=== PATIENT | male | born 1965 | race Caucasian/White ===

== ENCOUNTER 2024-10-20 07:44 | Outpatient (CLI) | payer MEDICARE, SELFPAY ==
--- NOTE | ~2024-10-20 | MR_ITS ---
EXAMINATION: MR knee RT wo con DATE: 10/20/2024 08:21 INDICATION: Other tear of medial meniscus, recurrent injury. TECHNIQUE: Magnetic resonance imaging (MRI) of the right knee was performed without intravenous contr ast. COMPARISON: Right knee radiographs 09/30/2024 FINDINGS: Medial compartment: There is a complex tear involving the anterior horn, body, and posterior horn of the medial meniscus. There is shallow partial-thickness cartilage loss of tibial condyle and femoral condyle with mild cornell bchondral edema-like marrow signal intensity. Lateral compartment: The lateral meniscus is normal. There is deep cartilage fissuring of tibial condyle involving the garcia tral articular surface with subchondral cyst and subchondral edema-like marrow signal intensity. Ther e is partial-thickness cartilage loss of femoral condyle, deep at the central articular surface. Patellofemoral compartment: Patellar cartilage is normal. There is deep partial-thickness cartilage loss of the central trochlea. Ligaments and tendons: The anterior and posterior cruciate ligaments are normal. There are changes of prior sprains of media l collateral ligament and fibular collateral ligament characterized by thickening and increased signa l intensity proximally. There is mild patellar tendinopathy. Fluid: There is a small knee joint effusion. There is trace fluid in a Carpenter's cyst. There is moderate prepa tellar and superficial infrapatellar bursitis. IMPRESSION: 1. Moderate chondrosis of lateral and patellofemoral compartments and mild chondrosis of medial amaury rtment. 2. Tear of medial meniscus. 3. Small knee joint effusion. Reviewed, dictated and finalized at location A. MODYNAMICS TEACHER IMPRESSION: 1. Moderate chondrosis of lateral and patellofemoral compartments and mild iman drosis of medial compartment. 2. Tear of medial meniscus. 3. Small knee joint effusion.
== END 2024-10-20 07:45 | disposition home or self-care (01) ==
LOC: MICIMG 07:45
PROVIDERS: PCP Physician Assistant; Visit Provider Orthopaedic Surgery
DX: S83.231A Complex tear of medial meniscus, current injury, right knee, initial encounter (principal); M94.261 Chondromalacia, right knee; M25.461 Effusion, right knee; X58.XXXA Exposure to other specified factors, initial encounter
CPT/HCPCS: 73721

== ENCOUNTER 2025-01-04 10:11 | Outpatient (CLI) | payer MEDICARE, SELFPAY ==
[2025-01-04 11:08] LABS: Anion Gap 9 mmol/L (4-12); Blood Urea Nitrogen 13 mg/dL (9-20); Calcium 8.7 mg/dL (8.4-10.2); Carbon Dioxide 31 mmol/L (22-30); Chloride 95 mmol/L (98-107); Estimated Glomerular Filt Rate > 60; Glucose 109 mg/dL (65-110); Potassium 3.1 mmol/L (3.4-5.0); Sodium 135 mmol/L (137-145)
--- OUTSIDE RECORDS SUMMARY | 2025-01-04 11:28 | XMS_ITS | Referral Summary ---
Author Organization [facility] Address [address] [place] [address] Care Team Providers Care Photovoltaic Solar Cell Designer Name Role Phone Parent, Hiral Coffey GEORGE Primary Care Provider [phone] [facility],non-owned Affiliates and Associated Physician Practices is amultiple site organization consisting of ambulatory clinics and hospital sitesin [place], [place], [place] and [place]. This disclosure is being madepursuant to the Care Everywhere program and may not contain all information available regarding this patient. Last updated 18.[facility] Allergies No known active allergies Medications * Be aware that medications may not be up to date on this document. Alwaysverify current medications with the patient. Medication Sig Dispensed Refills Start Date End Date Status chlorthalidone (HYGROTON) 25 MG tablet chlorthalidone 25 mg tablet TAKE 2 TABLETS BY MOUTH EVERY DAY Active cyclobenzaprine (FLEXERIL) 10 MG tablet once daily Active metoprolol tartrate (LOPRESSOR) 25 MG tablet metoprolol tartrate 25 mg tablet TAKE 1 TABLET BY MOUTH EVERY DAY Active Sharps Container ([employer] NEEDLE COLLECTION/DISPOSAL) MISC Use 1 Each every 7 days 1 Each 06/03/2022 Active methotrexate 50 MG/2ML injectionIndications :Psoriatic arthritis (HCC),Arthralgia, unspecified joint,Therapeutic drug monitoring,Osteoarth ritis, unspecified osteoarthritis type, unspecified site,High risk medications (not anticoagulants) long-term use Inject 0.8 mL subcutaneously every 7 days 4 mL 5 06/19/2022 Active naproxen (Naprosyn) 500 MG tablet Take 1 (one) tablet by mouth 2 times daily as needed For pain. 07/02/2022 Active folic acid (Folvite) 1 MG tabletIndications:Ps oriatic arthritis (HCC),Arthralgia, unspecified joint,Therapeutic drug monitoring,Osteoarth ritis, unspecified osteoarthritis type, unspecified site,High risk medications (not anticoagulants) long-term use Take 1 (one) tablet by mouth once daily 90 tablet 4 03/20/2023 Active insulin syringe-needle (Bd Ultrafine) 29G X 1/2 1 ML syringeIndications:P soriatic arthritis (HCC),Arthralgia, unspecified joint,Therapeutic drug monitoring,Osteoarth ritis, unspecified osteoarthritis type, unspecified site,High risk medications (not anticoagulants) long-term use use as directed to dispense methotrexate weekly 24 Each 1 06/25/2023 Active Active Problems No known active problems Social History Tobacco Use Types Packs/Day Years Used Date Smoking Tobacco: Never Smokeless Tobacco: Never Alcohol Use Standard Drinks/Week Comments Never 0 (1 standard drink = 0.6 oz pur e alcohol) PHQ-2 Answer Date Recorded PHQ2 TOTAL SCORE 2 02/26/2022 Sex and Gender Information Value Date Recorded Sex Assigned at Not on file Gender Identity Not on file Sexual Orientation Not on file Last Filed Vital Signs Vital Sign Reading Time Taken Comments Blood Pressure 128/80 01/14/2023 9:09 AM SENIOR MARKETING MANAGER Pulse 85 01/14/2023 9:09 AM SENIOR MARKETING MANAGER Temperature 36.3 C (97.3 F) 01/14/2023 9:09 AM SENIOR MARKETING MANAGER Respiratory Rate - - Oxygen Saturation 99% 01/14/2023 9:09 AM SENIOR MARKETING MANAGER Inhaled Oxygen Concentration - - Weight 109 kg (240 lb 6.4 oz) 01/14/2023 9:09 AM SENIOR MARKETING MANAGER Height 172.7 cm (5' 8 ) 06/03/2022 11:43 AM CDT Body Mass Index 36.55 06/03/2022 11:43 AM CDT Plan of Treatment Not on file Procedures Procedure Name Priority Date/Time Associated Diagnosis Comments COMPREHENSIVE METABOLIC PANEL Routine 02/27/2022 8:35 AM CDT Psoriatic arthritis (HCC) Arthralgia, unspecified joint Therapeutic drug monitoring Osteoarthritis, unspecified osteoarthritis type, unspecified site High risk medications (not anticoagulants) long-term use from Last 3 Months or Most Recently Relevant to Health Maintenance Results * (ABNORMAL) COMPREHENSIVE METABOLIC PANEL (02/27/2022 8:35 AM CDT) [facility] Glucose 92 65 - 99 mg/dL [facility] Comment: Fasting reference interval BUN 10 7 - 25 mg/dL [facility] Creatinine 1.21 0.70 - 1.33 mg/dL [facility] Comment: For patients >49 years of age, the reference limit for Creatinine is approximately 13% higher for people identified as -Russian. eGFR by MDRD 66 > OR = 60 mL/min/1 .73m2 [facility] eGFR by MDRD 76 > OR = 60 mL/min/1 .73m2 [facility] BUN/Creatinine Ratio NOT APPLICABLE 6 - 22 (calc) [facility] Sodium 137 135 - 146 mmol/L [facility] Potassium 4.3 3.5 - 5.3 mmol/L [facility] Chloride 104 98 - 110 mmol/L [facility] CO2 25 20 - 32 mmol/L [facility] Calcium 8.9 8.6 - 10.3 mg/dL [facility] Protein Total 7.8 6.1 - 8.1 g/dL [facility] Albumin 4.0 3.6 - 5.1 g/dL [facility] Globulin Total 3.8(H) 1.9 - 3.7 g/dL (calc) [facility] Albumin/Globulin Ratio 1.1 1.0 - 2.5 (calc) [facility] Bilirubin Total 0.5 0.2 - 1.2 mg/dL [facility] Alkaline Phosphatase 57 35 - 144 U/L [facility] AST 17 10 - 35 U/L [facility] ALT 14 9 - 46 U/L [facility] Comment: Test Performed at: [facility] [id number] [place] [address] MILLIE WOODY DO,MPH Blood BLOOD SPECIMEN / Unknown 02/27/2022 8:35 AM CDT 02/27/2022 8:36 AM CDT Kenyetta Reaves MD LAB - CHEMISTRY ORDERABLES [facility] [address] [place] [address] from Last 3 Months or Most Recently Relevant to Health Maintenance Care Teams Photovoltaic Solar Cell Designer Relationship Specialty Start Date End Date Parent, GEORGE Alcaraz [address] [place] [address] PCP - General 08/06/21
--- OUTSIDE RECORDS SUMMARY | 2025-01-04 11:28 | XMS_ITS | Referral Summary ---
Author Organization [facility] Address [address] [place] [address] Care Team Providers Care Paver Installer Name Role Phone Parent, Hiral Solares GEORGE Primary Care Provider [phone] Allergies No known active allergies Medications aspirin 81 mg chewable tablet Take 1 tablet (81 mg total) by mouth daily 05/05/2017 Active chlorthalidone 25 mg tablet daily Active hydrOXYzine (ATARAX) 25 mg tablet Take 1 tablet (25 mg total) by mouth nightly 2 01/16/2019 Active metoprolol (LOPRESSOR) 25 mg tablet Take 1 tablet (25 mg total) by mouth daily 2 02/17/2019 Active Active Problems Problem Noted Date Diagnosed Date Hyperlipidemia 01/08/2023 Psoriasis with arthropathy 09/30/2022 Essential hypertension 07/12/2013 Resolved Problems Problem Noted Date Diagnosed Date Resolved Date Left hand pain 04/28/2019 06/17/2024 Ganglion cyst 04/14/2019 06/17/2024 Right hand pain 04/14/2019 06/17/2024 Social History Tobacco Use Types Packs/Day Years Used Date Smoking Tobacco: Never Personal Safety Answer Date Recorded Getting School Help Needed Not on file 02/06 Sex and Gender Information Value Date Recorded Sex Assigned at Not on file Legal Sex 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 Gender Identity Not on file Sexual Orientation Not on file Last Filed Vital Signs Vital Sign Reading Time Taken Comments Blood Pressure 128/93 06/17/2024 10:00 AM CDT Pulse 99 06/17/2024 10:00 AM CDT Temperature 36.9 C (98.5 F) 06/17/2024 10:00 AM CDT Respiratory Rate - - Oxygen Saturation 97% 06/17/2024 10:00 AM CDT Inhaled Oxygen Concentration - - Weight 108.9 kg (240 lb) 06/17/2024 10:00 AM CDT Height 177.8 cm (5' 10 ) 06/17/2024 10:00 AM CDT Body Mass Index 34.44 06/17/2024 10:00 AM CDT Plan of Treatment Not on file Insurance [employer] MEDICARE SOLUTIONS MEDICARE SOLUTIONS Care Teams Paver Installer Relationship Specialty Start Date End Date ParentHiral PA PCP - General Family Practice 03/30/19
--- OUTSIDE RECORDS SUMMARY | 2025-01-04 11:28 | XMS_ITS | Clinical Summary ---
Author Organization [facility] Address [facility] [place] [address] Care Team Providers Care Construction Project Mgr Name Role Phone Parent, Hiral Solares GEORGE Primary Care Provider [phone] Allergies No known active allergies Medications aspirin [...] 04/14/2019 06/17/2024 Right hand pain 04/14/2019 06/17/2024 Surgical History Surgery Date Site/Laterality Comments HIP SURGERY SHOULDER ARTHROSCOPY KNEE ARTHROSCOPY Medical History Medical History Date Comments Hypertension Family History Medical History Relation Name Comments Cancer Other Heart disease Other Stroke Other Relation Name Status Comments Other Social History Tobacco Use Types Packs/Day Years Used Date Smoking Tobacco: Never Personal Safety Answer Date Recorded Getting School Help Needed Not on file 02/06 Sex and Gender Information Value Date Recorded Sex Assigned at Not on file Legal Sex Male 8:52 AM [employer]IV[employer]ITY [employer]NER[employer] REP Gender Identity Not on file Sexual Orientation Not on file Obstetrics History Last Filed Vital Signs Vital Sign Reading [...] 06/17/2024 10:00 AM CDT Plan of Treatment Health Maintenance Due Date Last Done Comments Colon Cancer Screening-Colonoscopy 1963 Depression Screening 1963 Hepatitis C Screening 1963 Prostate Cancer Screening-PSA 1963 Regular Well Visit/Exam 18-64 1981 Zoster Vaccine (1 of 2) 2013 Influenza Vaccine (#1) 2024 DTaP/Tdap/Td Vaccine (3 - Td or Tdap) 10/01/2032 10/01/2022, 03/18/2011 Pneumococcal vaccine <65 Aged Out No longer eligible based on patient's age to complete this topic Insurance [employer] MEDICARE SOLUTIONS MEDICARE SOLUTIONS [facility] MEDIC[facility] Address: [address] [address] [place] [address] Care Teams Construction Project Mgr Relationship Specialty Start Date End Date Hiral Rivas PA PCP - General Family Practice 03/30/19
--- OUTSIDE RECORDS SUMMARY | 2025-01-04 11:28 | XMS_ITS | CONTINUITY OF CARE DOCUMENT ---
Author Name jannette bhatia Address Unknown Organization [facility] Address [address] [address] [place] [address] Phone [phone] Care Team Providers Care Cardiac Care Unit Nurse Name Role Phone jannette bhatia Unavailable Unavailable INSURANCE PROVIDERS Payer name Policy type / Coverage type Addison red libertarian ID [facility] [id number]
--- OUTSIDE RECORDS SUMMARY | 2025-01-04 11:28 | XMS_ITS | Clinical Summary ---
Author Organization [facility] [address] Address [address] [place] [address] Care Team Providers Care Self Propelled Dredge Operator Name Role Phone Parent, Hiral Coffey GEORGE Primary Care Provider [phone] Source Comments [facility] [address],non-owned Affiliates and Associated Physician Practices is amultiple site organization consisting of ambulatory clinics and hospital sitesin [place], [place] and [place]. This disclosure is being madepursuant to the Care Everywhere program and may not contain all information available regarding this patient. Last updated 18.[facility] [address] Allergies No known active allergies Medications * [...] Active Active Problems No known active problems Family History Medical History Relation Name Comments Cancer Brother Heart Failure Father Cancer Mother Relation Name Status Comments Brother Father Mother Social History Tobacco Use Types Packs/Day Years [...] Comments Blood Pressure 128/80 01/14/2023 9:09 AM BUSINESS INTELLIGENCE DIRECTOR Pulse 85 01/14/2023 9:09 AM BUSINESS INTELLIGENCE DIRECTOR Temperature 36.3 C (97.3 F) 01/14/2023 9:09 AM BUSINESS INTELLIGENCE DIRECTOR Respiratory Rate - - Oxygen Saturation 99% 01/14/2023 9:09 AM BUSINESS INTELLIGENCE DIRECTOR Inhaled Oxygen Concentration - - Weight 109 kg (240 lb 6.4 oz) 01/14/2023 9:09 AM BUSINESS INTELLIGENCE DIRECTOR Height 172.7 cm (5' 8 ) 06/03/2022 11:43 AM CDT Body Mass Index 36.55 06/03/2022 11:43 AM CDT Plan of Treatment Health Maintenance Due Date Last Done Comments COLOGUARD (AGES 45-75) - COL ON CA SCREENING 1963 COLON MONITORING 1963 COLONOSCOPY - COLON CA SCREENING 1963 CT COLONOGRAPHY - COLON CA SCREENING 1963 Colorectal Cancer Screening 1963 FIT - COLON CA SCREENING 1963 FLEX SIG - COLON CA SCREENING 1963 LIPID TESTING 1963 HIV SCREENING 1978 HEPATITIS C SCREENING 11/08/1981 DTAP/TDAP/TD VACCINES (1 - Tdap) 1982 PNEUMOCOCCAL VACCINE 50+ (1 of 1 - PCV) 2013 ZOSTER VACCINE (1 of 2) 2013 COVID-19 VACCINE (4 - 2023-2 5 season) 2024 11/15/2021, 03/15/2021, 02/22/2021 INFLUENZA VACCINE (#1) 2024 DEPRESSION SCREENING 11/24/2024 06/03/2022 SCREENING FOR DIABETES 02/27/2025 2, 11/26/2021 Respiratory Syncytial Virus (RSV) Vaccine Pt: or over 60 yrs (1 - 1-dose 75+ series) 2038 HEPATITIS B VACCINE Aged Out No longe r eligible based on patient's age to complete this topic HIB VACCINE Aged Out No longer eligi ble based on patient's age to complete this topic HPV VACCINE Aged Out No longer eligi ble based on patient's age to complete this topic MENINGOCOCCAL (Group B) VACCINE Aged Out No longer eligible b ased on patient's age to complete this topic MENINGOCOCCAL VACCINE Aged Out No ventura noelle eligible based on patient's age to complete this topic PNEUMOCOCCAL VACCINE Aged Out No long er eligible based on patient's age to complete this topic Procedures Procedure Name Priority Date/Time Associated Diagnosis Comments COMPREHENSIVE METABOLIC PANEL Routine 02/27/2022 8:35 AM CDT Psoriatic arthritis (HCC) Arthralgia, unspecified joint Therapeutic drug monitoring Osteoarthritis, unspecified osteoarthritis type, unspecified site High risk medications (not anticoagulants) long-term use from Last 3 Months or Most Recently Relevant to Health Maintenance Results * (ABNORMAL) COMPREHENSIVE METABOLIC PANEL (02/27/2022 8:35 AM CDT) Glucose 92 65 - 99 mg/dL [facility] Comment: Fasting reference interval BUN 10 7 - 25 mg/dL [facility] Creatinine 1.21 0.70 - 1.33 mg/dL [facility] Comment: For patients >49 years of age, the reference limit for Creatinine is approximately 13% higher for people identified as -Sao Tomean. eGFR by MDRD 66 > OR = [...] 46 U/L [facility] Comment: Test Performed at: [facility] [address] [address] MILLIE WOODY DO,MPH Blood BLOOD SPECIMEN / Unknown 02/27/2022 8:35 AM CDT 02/27/2022 8:36 AM CDT Kenyetta Reaves MD LAB - CHEMISTRY ORDERABLES [facility] [address] [place] [address] from Last 3 Months or Most Recently Relevant to Health Maintenance Care Teams Self Propelled Dredge Operator Relationship Specialty Start Date End Date Parent, GEORGE Alcaraz [address] [place] [address] PCP - General 08/06/21
--- OUTSIDE RECORDS SUMMARY | 2025-01-04 11:28 | XMS_ITS | Patient Health Summary ---
Author Organization [facility] Address [address] [place] [address] Care Team Providers Care Building Custodial Supervisor Name Role Phone Parent, Hiral Coffey GEORGE Primary Care Provider [phone] Note from [facility],non-owned Affiliates and Associated Physician Practices is amultiple site organization consisting of ambulatory clinics and hospital sitesin [place], [place], [place] and [place]. This disclosure is being madepursuant to the Care Everywhere program and may not contain all information available regarding this patient. Last updated 18.[facility] Allergies No known active allergies Medications * Be aware that medications may not be up to date on this document. Alwaysverify current medications with the patient. * chlorthalidone (HYGROTON) 25 MG tablet chlorthalidone 25 mg tablet TAKE 2 TABLETS BY MOUTH EVERY DAY * cyclobenzaprine (FLEXERIL) 10 MG tablet once daily * metoprolol tartrate (LOPRESSOR) 25 MG tablet metoprolol tartrate 25 mg tablet TAKE 1 TABLET BY MOUTH EVERY DAY * [employer] ([facility] NEEDLE COLLECTION/DISPOSAL) [facility](Started 06/03/2022) Use 1 Each every 7 days * methotrexate 50 MG/2ML injection(Started 06/19/2022) Inject 0.8 mL subcutaneously every 7 days 5 refills by 06/19/2023 * naproxen (Naprosyn) 500 MG tablet(Started 07/02/2022) Take 1 (one) tablet by mouth 2 times daily as needed For pain. * folic acid (Folvite) 1 MG tablet(Started 03/20/2023) Take 1 (one) tablet by mouth once daily 4 refills by 03/19/2024 * insulin syringe-needle (Bd Ultrafine) 29G X 1/2 1 ML syringe(Started 06/25/2023) use as directed to dispense methotrexate weekly 1 refill by 06/24/2024 Active Problems No known active problems Social [...] Comments Blood Pressure 128/80 01/14/2023 9:09 AM SURGERY SPECIALIST Pulse 85 01/14/2023 9:09 AM SURGERY SPECIALIST Temperature 36.3 C (97.3 F) 01/14/2023 9:09 AM SURGERY SPECIALIST Respiratory Rate - - Oxygen Saturation 99% 01/14/2023 9:09 AM SURGERY SPECIALIST Inhaled Oxygen Concentration - - Weight 109 kg (240 lb 6.4 oz) 01/14/2023 9:09 AM SURGERY SPECIALIST Height 172.7 cm (5' 8 ) 06/03/2022 11:43 AM CDT Body Mass Index 36.55 06/03/2022 11:43 AM CDT Procedures * HLA TYPING B27(Performed 02/27/2022) Performed for Psoriatic arthritis (HCC), Arthralgia, unspecified joint, Therapeutic drug monitoring, Osteoarthritis, unspecified osteoarthritis type, unspecified site, High risk medications (not anticoagulants) long-term use * URINALYSIS W/MICROSCOPIC NO CULTURE(Performed 02/27/2022) Performed for Psoriatic arthritis (HCC), Arthralgia, unspecified joint, Therapeutic drug monitoring, Osteoarthritis, unspecified osteoarthritis type, unspecified site, High risk medications (not anticoagulants) long-term use * ERYTHROCYTE SEDIMENTATION RATE(Performed 02/27/2022) Performed for Psoriatic arthritis (HCC), Arthralgia, unspecified joint, Therapeutic drug monitoring, Osteoarthritis, unspecified osteoarthritis type, unspecified site, High risk medications (not anticoagulants) long-term use * C-REACTIVE PROTEIN(Performed 02/27/2022) Performed for Psoriatic arthritis (HCC), Arthralgia, unspecified joint, Therapeutic drug monitoring, Osteoarthritis, unspecified osteoarthritis type, unspecified site, High risk medications (not anticoagulants) long-term use * COMPREHENSIVE METABOLIC PANEL(Performed 02/27/2022) Performed for Psoriatic arthritis (HCC), Arthralgia, unspecified joint, Therapeutic drug monitoring, Osteoarthritis, unspecified osteoarthritis type, unspecified site, High risk medications (not anticoagulants) long-term use * CBC W AUTO DIFFERENTIAL(Performed 02/27/2022) Performed for Psoriatic arthritis (HCC), Arthralgia, unspecified joint, Therapeutic drug monitoring, Osteoarthritis, unspecified osteoarthritis type, unspecified site, High risk medications (not anticoagulants) long-term use * IMAGING/RADIOLOGY/XRAY RESULTS ORDER(Performed 12/06/2021) * IMAGING/RADIOLOGY/XRAY RESULTS ORDER(Performed 12/06/2021) * IMAGING/RADIOLOGY/XRAY RESULTS ORDER(Performed 12/06/2021) * IMAGING/RADIOLOGY/XRAY RESULTS ORDER(Performed 12/06/2021) * IMAGING/RADIOLOGY/XRAY RESULTS ORDER(Performed 12/06/2021) * IMAGING/RADIOLOGY/XRAY RESULTS ORDER(Performed 12/06/2021) * IMAGING/RADIOLOGY/XRAY RESULTS ORDER(Performed 12/06/2021) * CYCLIC CITRULLINATED PEPTIDE(CCP) AB IGG(Performed 11/26/2021) * PROTEIN ELECTROPHORESIS URINE RANDOM PANEL(Performed 11/26/2021) * ALDOLASE(Performed 11/26/2021) Performed for Arthralgia, unspecified joint, Therapeutic drug monitoring, Osteoarthritis, unspecified osteoarthritis type, unspecified site * LDH BLOOD(Performed 11/26/2021) Performed for Arthralgia, unspecified joint, Therapeutic drug monitoring, Osteoarthritis, unspecified osteoarthritis type, unspecified site * CK BLOOD(Performed 11/26/2021) Performed for Arthralgia, unspecified joint, Therapeutic drug monitoring, Osteoarthritis, unspecified osteoarthritis type, unspecified site * IGA BLOOD(Performed 11/26/2021) Performed for Arthralgia, unspecified joint, Therapeutic drug monitoring, Osteoarthritis, unspecified osteoarthritis type, unspecified site * IGG BLOOD(Performed 11/26/2021) Performed for Arthralgia, unspecified joint, Therapeutic drug monitoring, Osteoarthritis, unspecified osteoarthritis type, unspecified site * IGM BLOOD(Performed 11/26/2021) Performed for Arthralgia, unspecified joint, Therapeutic drug monitoring, Osteoarthritis, unspecified osteoarthritis type, unspecified site * PROTEIN ELECTROPHORESIS BLOOD(Performed 11/26/2021) Performed for Arthralgia, unspecified joint, Therapeutic drug monitoring, Osteoarthritis, unspecified osteoarthritis type, unspecified site * URINALYSIS REFLEX TO MICROSCOPIC NO CULTURE(Performed 11/26/2021) Performed for Arthralgia, unspecified joint, Therapeutic drug monitoring, Osteoarthritis, unspecified osteoarthritis type, unspecified site * C-REACTIVE PROTEIN(Performed 11/26/2021) Performed for Arthralgia, unspecified joint, Therapeutic drug monitoring, Osteoarthritis, unspecified osteoarthritis type, unspecified site * COMPREHENSIVE METABOLIC PANEL(Performed 11/26/2021) Performed for Arthralgia, unspecified joint, Therapeutic drug monitoring, Osteoarthritis, unspecified osteoarthritis type, unspecified site * CBC W AUTO DIFFERENTIAL(Performed 11/26/2021) Performed for Arthralgia, unspecified joint, Therapeutic drug monitoring, Osteoarthritis, unspecified osteoarthritis type, unspecified site Results * URINALYSIS W/MICROSCOPIC NO CULTURE (02/27/2022 8:35 AM CDT) Color UA YELLOW YELLOW [facility] Appearance CLEAR CLEAR [facility] Specific Sabin UA 1.016 1.001 - 1.035 [facility] pH UA < OR = 5.0 5.0 - 8.0 [facility] Glucose UA NEGATIVE NEGATIVE [facility] Bilirubin UA NEGATIVE NEGATIVE [facility] Ketone UA NEGATIVE NEGATIVE [facility] Blood UA NEGATIVE NEGATIVE [facility] Protein UA NEGATIVE NEGATIVE [facility] Nitrite UA NEGATIVE NEGATIVE [facility] Leukocyte UA NEGATIVE NEGATIVE [facility] WBC UA NONE SEEN < OR = 5 /HPF [facility] RBC UA NONE SEEN < OR = 2 /HPF [facility] Epithelial Cell UA NONE SEEN < OR = 5 /HPF [facility] Bacteria UA NONE SEEN NONE SEEN /HPF [facility] Hyaline Casts NONE SEEN NONE SEEN /LPF [facility] Comment: Test Performed at: [facility] [address] [place] [address] MILLIE WOODY DO,MPH Urine URINE SPECIMEN OBTAINED BY CLEAN CATCH PROCEDURE / Unknown 02/27/2022 8:35 AM CDT 02/27/2022 8:36 AM CDT Kenyetta Reaves MD LAB - URINALYSI S ORDERABLES [facility] [address] [place] [address] * (ABNORMAL) C-REACTIVE PROTEIN (02/27/2022 8:35 AM CDT) Only the most recent of2 resultswithin the time period is included. Pathologist [facility] C-Reactive Protein 8.2(H) <8.0 mg/L [facility] Comment: Test Performed at: [facility] [address] [address] [facility] [place] [address] MILLIE WOODY DO,MPH Blood BLOOD SPECIMEN / Unknown 02/27/2022 8:35 AM CDT 02/27/2022 8:36 AM CDT Kenyetta Reaves MD LAB - CHEMISTRY ORDERABLES Performing Organization Address [facility] de Phone Number [facility] [address] [place] [address] * HLA TYPING B27 (02/27/2022 8:35 AM CDT) Pathologist [facility] HLA-B27 Antigen NEGATIVE NEGATIVE [facility] Comment: Test Performed at: [facility] [address] [address] PEDRO BROWN MD Blood BLOOD SPECIMEN / Unknown 02/27/2022 8:35 AM CDT 02/27/2022 8:36 AM CDT Kenyetta Reaves MD LAB - CHEMISTRY ORDERABLES Performing Organization Address [facility] de Phone Number [facility] [address] [place] [address] * (ABNORMAL) ERYTHROCYTE SEDIMENTATION RATE (02/27/2022 8:35 AM CDT) Pathologist [facility] Erythrocyte Sedimentation Rate Westergren 29(H) < OR = 20 mm/h [facility] Comment: Test Performed at: [facility] [address] [facility] [place] [address] MILLIE WOODY DO,MPH Blood BLOOD SPECIMEN / Unknown 02/27/2022 8:35 AM CDT 02/27/2022 8:36 AM CDT Kenyetta Reaves MD LAB - HEMATOLOG Y ORDERABLES Performing Organization Address [facility] Co de Phone Number [facility] [address] [place] [address] * (ABNORMAL) CBC WITH DIFFERENTIAL (02/27/2022 8:35 AM CDT) Only the most recent of2 resultswithin the time period is included. White Blood Cell Count 9.1 3.8 - 10.8 Thousand/ uL [facility] RBC 5.46 4.20 - 5.80 Million/u L [facility] Hemoglobin 15.2 13.2 - 17.1 g/dL [facility] Hematocrit 46.0 38.5 - 50.0 % [facility] MCV 84.2 80.0 - 100.0 fL [facility] MCH 27.8 27.0 - 33.0 pg [facility] MCHC 33.0 32.0 - 36.0 g/dL [facility] RDW 13.8 11.0 - 15.0 % [facility] Platelet Count 256 140 - 400 Thousand/ uL [facility] MPV 10.3 7.5 - 12.5 fL [facility] Neutrophil Absolute 5314 1500 - 7800 cells/uL [facility] Absolute Bands [facility] Metamyelocytes Absolute [facility] Myelocytes Absolute [facility] Absolute Prolymphocytes [facility] Lymphocytes Absolute 2339 850 - 3900 cells/uL [facility] Absolute Monocytes 619 200 - 950 cells/uL [facility] Eosinophils Absolute 728(H) 15 - 500 cells/uL [facility] Basophils Absolute 100 0 - 200 cells/uL [facility] Absolute Blasts [facility] nRBC Absolute [facility] Granulocytes % 58.4 % [facility] Band Neutrophil [facility] Metamyelocytes [facility] Myelocytes [facility] Promyelocytes [facility] Lymphocytes % 25.7 % [facility] Lymphocyte Reactive [facility] Monocytes % 6.8 % [facility] Eosinophils % 8.0 % [facility] Basophils % 1.1 % [facility] Comment: Test Performed at: [employer] [place] [address] MILLIE WOODY DO,MPH Blasts [facility] nRBC [facility] Comments [facility] Comment: Test Performed at: [facility] [address] [place] [address] MILLIE WOODY DO,MPH Blood BLOOD SPECIMEN / Unknown 02/27/2022 8:35 AM CDT 02/27/2022 8:36 AM CDT Kenyetta Reaves MD LAB - HEMATOLOG Y ORDERABLES Performing Organization Address [facility] Co de Phone Number [facility] [address] [place] [address] * (ABNORMAL) COMPREHENSIVE METABOLIC PANEL (02/27/2022 8:35 AM CDT) Only the most recent of2 resultswithin the time period is included. Glucose 92 65 - 99 mg/dL [facility] Comment: Fasting reference interval BUN 10 7 - 25 mg/dL [facility] Creatinine 1.21 0.70 - 1.33 mg/dL [facility] Comment: For patients >49 years of age, the reference limit for Creatinine is approximately 13% higher for people identified as -Stateless. eGFR by MDRD 66 > OR = [...] 46 U/L [facility] Comment: Test Performed at: [employer] [address] [place] [address] MILLIE WOODY DO,MPH Blood BLOOD SPECIMEN / Unknown 02/27/2022 8:35 AM CDT 02/27/2022 8:36 AM CDT Kenyetta Reaves MD LAB - CHEMISTRY ORDERABLES [facility] [address] [place] [address] * IMAGING RADIOLOGY XRAY RESULTS ORDER (12/06/2021) Only the most recent of7 resultswithin the time period is included. Anatomical Region Laterality Modality Other 12/06/2021 Narrative 12/06/2021 Ordered by an unspecified provider. Scanned Document IMAGING * URINALYSIS REFLEX TO MICROSCOPIC NO CULTURE (11/26/2021 8:23 AM SURGERY SPECIALIST) Color UA DARK YELLOW YELLOW [facility] Appearance CLEAR CLEAR [facility] Specific Sabin UA 1.023 1.001 - 1.035 [facility] pH UA 5.5 5.0 - 8.0 [facility] Glucose UA NEGATIVE NEGATIVE [facility] Bilirubin UA NEGATIVE NEGATIVE [facility] Ketone UA NEGATIVE NEGATIVE [facility] Blood UA NEGATIVE NEGATIVE [facility] Protein UA NEGATIVE NEGATIVE [facility] Nitrite UA NEGATIVE NEGATIVE [facility] Leukocyte UA NEGATIVE NEGATIVE [facility] Comment: REPORT COMMENT: FASTING:NO Test Performed at: [place] [address] MILLIE WOODY DO,MPH WBC UA [facility] RBC UA [facility] Epithelial Cell UA [facility] Transitional Epithelial Cells [facility] Renal Epithelial Cells [facility] Bacteria UA [facility] Calcium Oxalate Crystals [facility] Triple Phosphate Crystals [facility] Uric Acid Crystals [facility] Amorphous UA [facility] Crystals UA [facility] Hyaline Casts [facility] Granular Casts [facility] Casts UA [facility] Yeast [facility] Comments [facility] Comment: REPORT COMMENT: FASTING:NO Test Performed at: [place] [address] MILLIE WOODY DO,MPH Urine URINE SPECIMEN OBTAINED BY CLEAN CATCH PROCEDURE / Unknown 11/26/2021 8:23 AM SURGERY SPECIALIST 11/26/2021 8:24 AM SURGERY SPECIALIST Kenyetta Reaves MD LAB - URINALYSI S ORDERABLES [facility] [address] [place] [address] * ALDOLASE (11/26/2021 8:23 AM SURGERY SPECIALIST) Aldolase 4.5 < OR = 8.1 U/L [facility] Comment: REPORT COMMENT: FASTING:NO Test Performed at: [facility] [address] [place] [address] MILLIE WOODY DO,MPH Blood BLOOD SPECIMEN / Unknown 11/26/2021 8:23 AM SURGERY SPECIALIST 11/26/2021 8:24 AM SURGERY SPECIALIST Kenyetta Reaves MD LAB - CHEMISTRY ORDERABLES Performing Organization Address [facility] de Phone Number [address] [address] * CYCLIC CITRULLINATED PEPTIDE(CCP) AB IGG (11/26/2021 8:23 AM SURGERY SPECIALIST) [facility] Cyclic Citrullinated Peptide Antibody IgG <16 UNITS [facility] Comment: Reference Range Negative: <20 Weak Positive: 20-39 Moderate Positive: 40-59 Strong Positive: >59 REPORT COMMENT: FASTING:NO Test Performed at: [employer] [facility] [address] MILLIE WOODY DO,MPH 11/26/2021 8:23 AM SURGERY SPECIALIST 11/26/2021 8:24 AM SURGERY SPECIALIST Kenyetta Reaves MD LAB - CHEMISTRY ORDERABLES Performing Organization Address [facility] de Phone Number [facility] [address] [place], [place] [id number] * (ABNORMAL) LDH BLOOD (11/26/2021 8:23 AM SURGERY SPECIALIST) [facility] LD-Total 86(L) 120 - 250 U/L [facility] Comment: Test Performed at: [facility] [address] MILLIE WOODY DO,MPH Blood BLOOD SPECIMEN / Unknown 11/26/2021 8:23 AM SURGERY SPECIALIST 11/26/2021 8:24 AM SURGERY SPECIALIST Kenyetta Reaves MD LAB - CHEMISTRY ORDERABLES Performing Organization Address [facility] de Phone Number [facility] [address] [place] [phone] * (ABNORMAL) PROTEIN ELECTROPHORESIS URINE RANDOM PANEL (11/26/2021 8:23 AM SURGERY SPECIALIST) [facility] Creatinine Urine 352(H) 20 - 320 mg/dL [facility] Comment: Verified by repeat analysis. Protein/Creatinine Ratio 43 22 - 128 mg/g creat [facility] Protein/Creatinine Ratio 0.043 0.022 - 0.128 mg/mg creat [facility] Protein Random Urine 15 5 - 25 mg/dL [facility] Albumin 100 % [facility] Alpha-1 Globulin 0 % [facility] Ifmdr-3-Tspnakfy 0 % [facility] Beta-Globulin 0 % [facility] Gamma Globulin 0 % [facility] Abnormal Protein Band [facility] Abnormal Protein Band 2 [facility] Abnormal Protein Band 3 [facility] Interpretation [facility] Comment: Agarose electrophoresis of urine reveals albumin. No abnormal protein is observed. REPORT COMMENT: FASTING:NO Test Performed at: [facility] [address] [place] [address] MILLIE WOODY DO,MPH 11/26/2021 8:23 AM SURGERY SPECIALIST 11/26/2021 8:24 AM SURGERY SPECIALIST Kenyetta Reaves MD LAB - URINE BRYAN DAVIS ORDERABLES Performing Organization Address [facility] Co de Phone Number [facility] [address] [place] [address] * CK BLOOD (11/26/2021 8:23 AM SURGERY SPECIALIST) Pathologist [facility] CK 44 44 - 196 U/L [facility] Comment: Test Performed at: [facility] [address] [place] [address] MILLIE WOODY DO,MPH Blood BLOOD SPECIMEN / Unknown 11/26/2021 8:23 AM SURGERY SPECIALIST 11/26/2021 8:24 AM SURGERY SPECIALIST Kenyetta Reaves MD LAB - CHEMISTRY ORDERABLES Performing Organization Address [facility] Co de Phone Number [facility] [address] [place] [address] * (ABNORMAL) PROTEIN ELECTROPHORESIS BLOOD (11/26/2021 8:23 AM SURGERY SPECIALIST) Protein Total 8.1 6.1 - 8.1 g/dL [facility] Albumin 3.8 3.8 - 4.8 g/dL [facility] Alpha-1 Globulin 0.3 0.2 - 0.3 g/dL [facility] Bywvs-8-Indizfsw 1.0(H) 0.5 - 0.9 g/dL [facility] Beta-1 Globulin g/dL 0.5 0.4 - 0.6 g/dL [facility] Beta-2 Globulin 0.7(H) 0.2 - 0.5 g/dL [facility] Gamma Globulin 1.8(H) 0.8 - 1.7 g/dL [facility] Abnormal Protein Band [facility] Abnormal Protein Band 2 [facility] Abnormal Protein Band 3 [facility] Interpretation [facility] Comment: Polyclonal hypergammaglobulinemia is suggestive of a chronic inflammatory response. Test Performed at: [facility] [address] [address] MILLIE WOODY DO,MPH Blood BLOOD SPECIMEN / Unknown 11/26/2021 8:23 AM SURGERY SPECIALIST 11/26/2021 8:24 AM SURGERY SPECIALIST Kenyetta Reaves MD LAB - CHEMISTRY ORDERABLES Performing Organization Address [facility] [place] [address] * IGM BLOOD (11/26/2021 8:23 AM SURGERY SPECIALIST) IgM 221 50 - 300 mg/dL [facility] Comment: Test Performed at: [facility] [address] MILLIE WOODY DO,MPH Blood BLOOD SPECIMEN / Unknown 11/26/2021 8:23 AM SURGERY SPECIALIST 11/26/2021 8:24 AM SURGERY SPECIALIST Kenyetta Reaves MD LAB - CHEMISTRY ORDERABLES Performing Organization Address [facility] Co de Phone Number [facility] [phone] [place] [phone] * (ABNORMAL) IGG BLOOD (11/26/2021 8:23 AM SURGERY SPECIALIST) IgG 1672(H) 600 - 1640 mg/dL [facility] Comment: Test Performed at: [employer] [address] MILLIE WOODY DO,MPH Blood BLOOD SPECIMEN / Unknown 11/26/2021 8:23 AM SURGERY SPECIALIST 11/26/2021 8:24 AM SURGERY SPECIALIST Kenyetta Reaves MD LAB - CHEMISTRY ORDERABLES Performing Organization Address [facility] Co de Phone Number [facility] [phone] [place] [phone] * (ABNORMAL) IGA BLOOD (11/26/2021 8:23 AM SURGERY SPECIALIST) IgA 659(H) 47 - 310 mg/dL [facility] Comment: Test Performed at: [facility] [address] [place] [address] MILLIE WOODY DO,MPH Blood BLOOD SPECIMEN / Unknown 11/26/2021 8:23 AM SURGERY SPECIALIST 11/26/2021 8:24 AM SURGERY SPECIALIST Kenyetta Reaves MD LAB - CHEMISTRY ORDERABLES [facility] [address] [place] [id number] Care Teams Building Custodial Supervisor Relationship Specialty Start Date End Date ParentHiral PA [address] [place] [place] [phone] PCP - General 08/06/21
--- OUTSIDE RECORDS SUMMARY | 2025-01-04 11:29 | XMS_ITS | Clinical Summary ---
Author Organization [facility] Address [address] [place] [address] Care Team Providers Care Aitchbone Breaker Name Role Phone Calista Fowler MD Unavailable [phone] ParentHiral Unavailable [phone] Hiral Rivsa Primary Care Provider [phone] Allergies No known active allergies Medications vitamin D3, cholecalcifero l, 1.25 MG (02238 UT) capsule Take 50,000 Units by mouth once a week. 1 Active chlorthalidone 25 MG tablet chlorthalidone 25 mg tablet TAKE 2 TABLETS BY MOUTH EVERY DAY Active cyclobenzaprin e 10 MG tablet daily. Activ e Halobetasol Propionate 0.05 % Foam halobetasol propionate 0.05 % topical foam Active hydrocortisone 2.5 % cream hydrocortisone 2.5 % topical cream APPLY TOPICALLY TO AXILLA RASH TWICE DAILY NEEDED FOR 14 DAYS Active meloxicam 7.5 MG tablet daily. Active metoprolol tartrate 25 MG tablet metoprolol tartrate 25 mg tablet TAKE 1 TABLET BY MOUTH EVERY DAY Active naproxen 500 MG tablet Take 500 mg by mouth 2 (two) times daily as needed. Active folic acid (FOLVITE) 1 MG tablet Take 1 tablet (1 mg total) by mouth daily. 3 Active diclofenac EC (VOLTAREN) 75 MG tablet Take 1 tablet (75 mg total) by mouth 2 (two) times daily. Active losartan (COZAAR) 50 MG tablet Take 1 tablet (50 mg total) by mouth daily. Active rosuvastatin (CRESTOR) 20 MG tablet Take 1 tablet every day by oral route at bedtime for 30 days. 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/2022 Snores 05/07/2017 Orthostatic hypotension 05/05/2017 Swelling of limb 03/21/2015 Overview (10/27/2023): Location: None;Severity: Moderate;Progress: Stable;Added By: Denia August;Add to Current Problems: NO Angioedema 07/11/2014 Overview (10/27/2023): Location: None;Severity: Moderate;Progress: Stable;Added By: Jadiel Collins;Add to Current Problems: YES Edema 01/09/2014 Overview (10/27/2023): Location: None;Severity: Moderate;Progress: Stable;Added By: Antonella Foreman;Add to Current Problems: NO Cellulitis 07/12/2013 Overview (10/27/2023): Location: None;Severity: Moderate;Progress: Stable;Added By: Jadiel Collins;Add to Current Problems: NO Chest pain Syncope Essential hypertension Immunizations Name Administration Dates Next Due Hepatitis A (H[facility]rix [address]) 07/09/2023,2021,10/19/2012,01/22/2012 Tdap (Generic) 10/01/2022,03/18/2011 Family History Medical History Relation Comments Obesity Brother 1 cellulitis Brother 1 Obesity Father Sudden Father Breast Cancer Mother Hypertension Mother Relation Status Comments Brother 1 Alive Brother 2 Alive Father (Age 62) Maternal Grandfather Maternal Grandmother (Age 68) Mother (Age 58) Paternal Grandfather (Age 79) Paternal Grandmother (Age 101) Social History Tobacco Use Types Packs/Day Years Used Date Smoking Tobacco: Never Smokeless Tobacco: Never Alcohol Use Standard Drinks/Week Comments No 0 (1 standard drink = 0.6 oz pur e alcohol) Sex and Gender Information Value Date Recorded Sex Assigned at Not on file Legal Sex Male 2:12 PM CDT Gender Identity Not on file Sexual Orientation Not on file Last Filed Vital Signs Vital Sign Reading Time Taken Comments Blood Pressure 118/62 10/28/2023 1:51 PM [employer] 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 Pulse 62 10/28/2023 1:51 PM [employer] INST[employer]ER Temperature - - Respiratory Rate - - Oxygen Saturation 98% 10/28/2023 1:51 PM [employer] INST[employer]ER Inhaled Oxygen Concentration - - Weight 107.5 kg (237 lb) 10/28/2023 1:51 PM [employer] INSTALLER Height 177.8 cm (5' 10 ) 10/28/2023 1:51 PM [employer] INSTALLER Body Mass Index 34.01 10/28/2023 1:51 PM [employer] INSTALLER Plan of Treatment Health Maintenance Due Date Last Done Comments Colorectal Cancer Screening Colonoscopy (10 Years) 1963 Annual Physical 1966 Hepatitis C 1981 Zoster Vaccines (1 of 2) 2013 COVID-19 Vaccine (3 - 2023-2 5 season) 2024 03/15/2021, 02/22/2021 Influenza Adult (#1) 2024 DTaP, Tdap and Td Vaccines ( 3 - Td or Tdap) 10/01/2032 10/01/2022, 03/18/2011 RSV Immunization or 60+ Years (1 - 1-dose 75+ series) 2038 Meningococcal B Vaccine Aged Out No l onger eligible based on patient's age to complete this topic Meningococcal Vaccine Aged Out No [place] noelle eligible based on patient's age to complete this topic Pneumococcal Vaccine: Pediatrics (0 to 5 Years) and At-Risk Patients (6 to 64 Years) Aged Out No longer eligible b ased on patient's age to complete this topic RSV Immunizations Under 20 Months Aged Out No longer eligible b ased on patient's age to complete this topic Insurance [employer] MEDICARE [facility] Advance Directives Documents on File Type Date Recorded 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 [address] [place] [address] Hanane Head Sugar Reprocess Operator CARDIOVASCULAR DISEASE 03/24/17 Hiral Rivas PA [address] [place] [address] FAMILY PRACTICE 09/28/21
--- OUTSIDE RECORDS SUMMARY | 2025-01-04 11:29 | XMS_ITS | Continuity of Care Document ---
Author Organization [facility] Address [address] [place] [address] Phone Care Team Providers Care Slide Maker Name Role Phone Aviles OD, Augusto Unavailable Unavailable Advance Directives Directive Yes / No Effective Date File Name No Information Encounters Encounter Description Practice Location Reason(s) For Visit Diagnoses Date Provider Providers Copied on Encounter [facility], [address] [place], [place], [id number], [place] tel:[phone] [address] [facility] [place] No Information 5-200 1 Aviles OD Augusto. [address] [place] , [address], [place], [address], [place]. tel:[phone] Family History Family Member Type Diagnosis Age At Onset No Information Payers Payer name Insurance type Covered democrat ID Authoriza tion(s) No Information Social History Type Description Quantity Date Captured Comments Sex Male Smoking Status No Information Chief Complaint And Reason For Visit No Information Reason For Referral Reason For Referral No Information History Of Present Illness Encounter Date Complaint History Of Prese nt Illness No Information Functional Status Date Functional Assessmen t No Information Instructions Date Instruction Additional Infor mation No Information Assessments Type Assessment Date No Information Patient Care Teams Name Effective Dates (start - stop) Status Members No Information
--- OUTSIDE RECORDS SUMMARY | 2025-01-04 11:29 | XMS_ITS | Data Portability ---
Author Organization [facility] Dk [facility] Address [address] [place] [address] Care Team Providers Care Early Childhood Services Coordinator Name Role Phone MANNIE DRIVER Gerontology Aide HIRAL RIVAS Primary Care Provider KENYETTA Casas Rat Culturist ISSAC LUQUE Neurosurgeon Assessment No assessment recorded. Plan of Treatment Reminders Order Date Submit Date Provider Last Modified By Organization Details Last Modified Time Details Appointments ANY 15 2024 08:45A M GEORGE Rosario Not available Not available Not available ANY 15 2024 08:30A M GEORGE Rosario Not available Not available Not available Lab lipid panel, serum 2022 023 [facility], [address], [place], [address], 08/26/2023 05:38:36 BMP, serum or plasma 2022 023 [facility], [address], [place], [address], 08/26/2023 05:38:37 lipid panel, serum 2023 024 [facility], [address], [place], [address], 04/08/2024 02:40:16 PSA, serum or plasma 2023 024 [facility], [address], [place], [address], 04/08/2024 02:40:19 urinalysi s, dipstick 2023 024 VIN In-Office Order, Internal Use Only DO Not Attach Compendium DO Not Attach Compendium, Do Not Delete/merge, [id number] 04/06/2024 12:27:28 CBC w/ auto diff 2023 [facility], [address], [place], [address], 04/08/2024 02:40:18 CMP, serum or plasma 2023 024 [facility], [address], [place], [address], 04/08/2024 02:40:18 lipid panel, serum 2023 024 [facility], [address], [place], [address], 09/21/2024 04:39:01 CMP, serum or plasma 2023 024 [facility], [address], [place], [address], 09/21/2024 04:39:05 CK (creatine kinase), total, serum 2023 [facility], [address], [place], [address], 09/21/2024 04:39:08 Referral rheumatol ogist referral - Please contact patient for appt, thanks! 2023 024 TARA [facility] (Rheumatology ), [address] [facility], , [place], [address], 04/13/2024 11:57:21 urologist referral - Please contact patient for appt, thanks! 2023 024 VIN Doss MD, [address], [place], [address], 04/28/2024 14:12:42 gastroent erologist referral 2023 024 nicko Osullivan MD, [address] [place], [address], 04/09/2024 14:25:06 Procedures None recorded. Surgeries None recorded. Imaging None recorded. Medication Orders Paxlovid 300 mg (150 mg x 2)-100 mg tablets in a dose pack 2022 023 [email or web address] [id number], [address], [place], [place], [id number], 04/06/2024 11:09:26 Patient TargetsNo targets recorded. Patient Instructions Encounter Date Encounter Id Patient Instructions Last Modified By Organization Details Last Modified Time 08/25/2023 [id number] A healthy lifestyle: care instructions Not available 08/27/2023 22:27:52 10/20/2023 [id number] Reviewed the following recommendations: -Stay home and separate from others as much as possible. -Monitor your symptoms and seek medical attention for trouble breathing, persistent chest pain, confusion, or bluish lips or face. -Wear a mask if you must be around other people. -Wash your hands often for 20 seconds with soap and water and clean high-touch surfaces daily -You may discontinue home isolation if your symptoms are improving and it has been 5 days since symptoms started. Not available 10/20/2023 15:24:44 Reason for Referral Urologist Referral for Hemos permia Please contact patient for appt, thanks! Referring Physician: [facility], Encounter Date: 04/06/2024 Dope Heater Referral for Screening for malignant neoplasm of colon Referring Physician: [facility], Encounter Date: 04/06/2024 Rat Culturist Referral for Psoriatic arthritis Please contact patient for appt, thanks! Referring Physician: [facility], Encounter Date: 04/06/2024 Results Created Date Observation Date Name Description Value Unit Range Abnormal Flag Note LastModifiedBy Organization Detail LastModifiedTime 04/08/20 24 04/08/2024 LIPID PANEL , STAND SHERRELL cholesterol, total 215 mg/dL <200 high Not Available [facility] [address] [address] [place], [address], 04/08/2024 02:40:16 04/08/20 24 04/08/2024 LIPID PANEL , STAND SHERRELL HDL cholesterol 47 mg/dL > or = 40 normal Not Available [facility] [address] [address] [place], [address], 04/08/2024 02:40:16 04/08/20 24 04/08/2024 LIPID PANEL , STAND SHERRELL triglyceride s 264 mg/dL <150 high If a non-f astin g speci men was colle cted, consi tashia repea t trigl yceri de testi ng on a fasti ng speci men if clini joe indic ated. Nasim chadwick et al. J. of Clin. Lipid ol. 2015; 9:129 -169. Not Available [facility] [address] [address] [place], [address], 04/08/2024 02:40:16 04/08/2004/08/2024 LIPID PANEL , STAND SHERRELL LDL-choleste rol 127 mg/dL _(darcie c) high Refer ence range : <100 Kelsie able range <100 mg/dL for prima ry preve ntion ; <70 mg/dL for patie nts with CHD or diabe tic patie nts with > or = 2 CHD risk facto rs. LDL-C is now calcu lated using the Isabella n-Hop kins calcu latliliana n, which is a valid ated novel metho d provi ding douglas r accur acy than the Fried frances equat ion in the estim ation of LDL-C . Isabella kapadia SS et al. KAITY. 2013; 310(1 9): 2061- 2068 (http ://ed ucati on.Qu estDi Cortexicas. com/f aq/FA Q164) Not Available [facility] [address] [place], [address], 04/08/2024 02:40:16 04/08/20 24 04/08/2024 LIPID PANEL , STAND SHERRELL chol/HDLC ratio 4.6 (calc ) <5.0 normal Not Available [address], [address], 04/08/2024 02:40:16 04/08/20 24 04/08/2024 LIPID PANEL , STAND SHERRELL non HDL cholesterol 168 mg/dL _(darcie c) <130 high For patie nts with diabe jeremy plus 1 major ASCVD risk facto r, treat ing to a non-H DL-C goal of <100 mg/dL (LDL- C of <70 mg/dL ) is miesha mensah optio n. Not Available [address] [address] [place], [address], 04/08/2024 02:40:16 04/08/20 24 04/08/2024 COMPR EHENS DANICA METAB OLIC PANEL glucose 97 mg/dL 65-99 normal Fasti ng refer ence inter keon Not Available [address] [address] [place], [address], 04/08/2024 02:40:17 04/08/20 24 04/08/2024 COMPR EHENS DANICA METAB OLIC PANEL urea nitrogen (BUN) 12 mg/dL 7-25 normal Not Available [address] [address] [place], [address], 04/08/2024 02:40:17 04/08/20 24 04/08/2024 COMPR EHENS DANICA METAB OLIC PANEL creatinine 1.26 mg/dL 0.70-1 .35 normal Not Available [address], [address], 04/08/2024 02:40:17 04/08/20 24 04/08/2024 COMPR EHENS DANICA METAB OLIC PANEL eGFR 65 mL/mi n/1.7 3m2 > or = 60 normal Not Available [address], [place], [address], 04/08/2024 02:40:17 04/08/20 24 04/08/2024 COMPR EHENS DANICA METAB OLIC PANEL BUN/creatini ne ratio SEE NOTE: (calc ) 6-22 Not Repor delfina: BUN and Creat inine are withi n refer ence range . Not Available [address], [address], 04/08/2024 02:40:17 04/08/20 24 04/08/2024 COMPR EHENS DANICA METAB OLIC PANEL sodium 138 mmol/ L 135-14 6 normal Not Available [address], [address], 04/08/2024 02:40:17 04/08/20 24 04/08/2024 COMPR EHENS DANICA METAB OLIC PANEL potassium 4.8 mmol/ L 3.5-5. 3 normal Not Available [address] [address] [place], [address], 04/08/2024 02:40:17 04/08/20 24 04/08/2024 COMPR EHENS DANICA METAB OLIC PANEL chloride 99 mmol/ L 98-110 normal Not Available [address] [address] [place], [address], 04/08/2024 02:40:17 04/08/20 24 04/08/2024 COMPR EHENS DANICA METAB OLIC PANEL carbon dioxide 24 mmol/ L 20-32 normal Not Available [facility] [address] [address] [place], [address], 04/08/2024 02:40:17 04/08/20 24 04/08/2024 COMPR EHENS DANICA METAB OLIC PANEL calcium 9.4 mg/dL 8.6-10 .3 normal Not Available [facility] [address], [address], 04/08/2024 02:40:17 04/08/20 24 04/08/2024 COMPR EHENS DANICA METAB OLIC PANEL protein, total 7.9 g/dL 6.1-8. 1 normal Not Available [address], [address], 04/08/2024 02:40:17 04/08/20 24 04/08/2024 COMPR EHENS DANICA METAB OLIC PANEL albumin 4.5 g/dL 3.6-5. 1 normal Not Available [address], [address], 04/08/2024 02:40:17 04/08/20 24 04/08/2024 COMPR EHENS DANICA METAB OLIC PANEL globulin 3.4 g/dL_ (calc ) 1.9-3. 7 normal Not Available [address], [address], 04/08/2024 02:40:17 04/08/20 24 04/08/2024 COMPR EHENS DANICA METAB OLIC PANEL albumin/glob ulin ratio 1.3 (calc ) 1.0-2. 5 normal Not Available [address], [address], 04/08/2024 02:40:17 04/08/20 24 04/08/2024 COMPR EHENS DANICA METAB OLIC PANEL bilirubin, total 0.6 mg/dL 0.2-1. 2 normal Not Available [address], [address], 04/08/2024 02:40:17 04/08/20 24 04/08/2024 COMPR EHENS DANICA METAB OLIC PANEL alkaline phosphatase 71 U/L 35-144 normal Not Available [address], [address], 04/08/2024 02:40:17 04/08/20 24 04/08/2024 COMPR EHENS DANICA METAB OLIC PANEL AST 25 U/L 10-35 normal Not Available [address], [address], 04/08/2024 02:40:17 04/08/20 24 04/08/2024 [facility] D[facility] METAB OLIC PANEL ALT 22 U/L 9-46 normal Not Available [address], [address], 04/08/2024 02:40:17 04/08/20 24 04/08/2024 CBC (INCL UDES DIFF/ PLT) white blood cell count 9.4 thous and/u L 3.8-10 .8 normal Not Available [address], [address], 04/08/2024 02:40:18 04/08/20 24 04/08/2024 CBC (INCL UDES DIFF/ PLT) red blood cell count 5.80 linnette on/uL 4.20-5 .80 normal Not Available [address], [address], 04/08/2024 02:40:18 04/08/20 24 04/08/2024 CBC (INCL UDES DIFF/ PLT) hemoglobin 16.2 g/dL 13.2-1 7.1 normal Not Available [address], [address], 04/08/2024 02:40:18 04/08/20 24 04/08/2024 CBC (INCL UDES DIFF/ PLT) hematocrit 48.1 % 38.5-5 0.0 normal Not Available [facility] [address], [address], 04/08/2024 02:40:18 04/08/20 24 04/08/2024 CBC (INCL UDES DIFF/ PLT) MCV 82.9 fL 80.0-1 00.0 normal Not Available [address], [address], 04/08/2024 02:40:18 04/08/20 24 04/08/2024 CBC (INCL UDES DIFF/ PLT) MCH 27.9 pg 27.0-3 3.0 normal Not Available [address], [address], 04/08/2024 02:40:18 04/08/20 24 04/08/2024 CBC (INCL UDES DIFF/ PLT) MCHC 33.7 g/dL 32.0-3 6.0 normal Not Available [address], [address], 04/08/2024 02:40:18 04/08/20 24 04/08/2024 CBC (INCL UDES DIFF/ PLT) RDW 13.6 % 11.0-1 5.0 normal Not Available [address], [address], 04/08/2024 02:40:18 04/08/20 24 04/08/2024 CBC (INCL UDES DIFF/ PLT) platelet count 218 thous and/u L 140-40 0 normal Not Available [address], [address], 04/08/2024 02:40:18 04/08/20 24 04/08/2024 CBC (INCL UDES DIFF/ PLT) MPV 11.3 fL 7.5-12 .5 normal Not Available [address], [address], 04/08/2024 02:40:18 04/08/20 24 04/08/2024 CBC (INCL UDES DIFF/ PLT) absolute neutrophils 5668 cells /uL 1500-7 800 normal Not Available [address], [address], 04/08/2024 02:40:18 04/08/20 24 04/08/2024 CBC (INCL UDES DIFF/ PLT) absolute lymphocytes 2397 cells /uL 850-39 00 normal Not Available [facility] [address], [address], 04/08/2024 02:40:18 04/08/20 24 04/08/2024 CBC (INCL UDES DIFF/ PLT) absolute monocytes 630 cells /uL 200-95 0 normal Not Available [facility] [address], [address], 04/08/2024 02:40:18 04/08/20 24 04/08/2024 CBC (INCL UDES DIFF/ PLT) absolute eosinophils 602 cells /uL 15-500 high Not Available [facility] [address], [address], 04/08/2024 02:40:18 04/08/20 24 04/08/2024 CBC (INCL UDES DIFF/ PLT) absolute basophils 103 cells /uL 0-200 normal Not Available [facility] [address], [address], 04/08/2024 02:40:18 04/08/20 24 04/08/2024 CBC (INCL UDES DIFF/ PLT) neutrophils 60.3 % normal Not Available [facility] [address], [address], 04/08/2024 02:40:18 04/08/20 24 04/08/2024 CBC (INCL UDES DIFF/ PLT) lymphocytes 25.5 % normal Not Available [facility] [address], [address], 04/08/2024 02:40:18 04/08/20 24 04/08/2024 CBC (INCL UDES DIFF/ PLT) monocytes 6.7 % normal Not Available [facility] [address] [place], [address], 04/08/2024 02:40:18 04/08/20 24 04/08/2024 CBC (INCL UDES DIFF/ PLT) eosinophils 6.4 % normal Not Available [facility] [address] [address] [place], [address], 04/08/2024 02:40:18 04/08/20 24 04/08/2024 CBC (INCL UDES DIFF/ PLT) basophils 1.1 % normal Not Available [facility] [address] [address] [place], [address], 04/08/2024 02:40:18 04/08/20 24 04/08/2024 PSA, TOTAL PSA, total 0.98 NG/mL < or = 4.00 normal The total PSA value from this assay syste m is stand ardiz ed again st the WHO stand sherrell. The test resul t will be appro ximat cain 20% lower when amaury red to the equim olar- stand ardiz ed total PSA (Garcia man Coult er). Amaury rison of seria l PSA resul ts shoul d be inter prete d with this fact in mind. This test was perfo rmed using the [employer] chemi lumin escen t metho d. Value s obtai roxie from diffe rent assay metho ds canno t be used inter shannon eably . PSA level s, regar dless of value , shoul d not be inter prete d as absol [place] evide nce of the prese nce or absen ce of disea se. NO COLLE CTION DATE RECEI KIKE. WE HAVE USED THE DATE THE SPECI MEN WAS RECEI KIKE BY THIS LABOR ATORY THE COLLE CTION DATE. IF THIS IS INCOR RECT, PLEAS E CONTA CT CLIEN T SERVI MONI. PHONE NUMBE R: [phone] Not Available [facility] [address] [address] [place], [address], 04/08/2024 02:40:19 08/25/20 23 08/26/2023 LIPID PANEL , STAND SHERRELL cholesterol, total 186 mg/dL <200 normal Not Available [facility] [address] [address] [place], [address], 08/26/2023 05:38:36 08/25/20 23 08/26/2023 LIPID PANEL , STAND SHERRELL HDL cholesterol 41 mg/dL > or = 40 normal Not Available [facility] [address] [place], [address], 08/26/2023 05:38:36 08/25/20 23 08/26/2023 LIPID PANEL , STAND SHERRELL triglyceride s 228 mg/dL <150 high If a non-f astin g speci men was colle cted, consi tashia repea t trigl yceri de testi ng on a fasti ng speci men if clini joe indic ated. Nasim chadwick et al. J. of Clin. Lipid ol. 2015; 9:129 -169. Not Available [facility] [address] [place] [address], [place], [address], 08/26/2023 05:38:36 08/25/2008/26/2023 LIPID PANEL , STAND SHERRELL LDL-choleste rol 110 mg/dL _(darcie c) high Refer ence range : <100 Kelsie able range <100 mg/dL for prima ry preve ntion ; <70 mg/dL for patie nts with CHD or diabe tic patie nts with > or = 2 CHD risk facto rs. LDL-C is now calcu lated using the Isabella n-Hop kins calcu tory n, which is a valid ated novel kunalo d ashia samaniego accur acy than the Fried frances equat ion in the estim ation of LDL-C . Isabella kapadia SS et al. KAITY. 2013; 310(1 9): 2061- 2068 (http ://ed ucati on.Qu estDi Cortexicas. com/f aq/FA Q164) Not Available [facility] [address] [place], [address], 08/26/2023 05:38:36 08/25/20 23 08/26/2023 LIPID PANEL , STAND SHERRELL chol/HDLC ratio 4.5 (calc ) <5.0 normal Not Available [address] [place], [address], 08/26/2023 05:38:36 08/25/2008/26/2023 LIPID PANEL , STAND SHERRELL non HDL cholesterol 145 mg/dL _(darcie c) <130 high For patie nts with diabe jeremy plus 1 major ASCVD risk facto r, treat ing to a non-H DL-C goal of <100 mg/dL (LDL- C of <70 mg/dL ) is consi dered a thera peuti c optio n. Not Available [address], [address], 08/26/2023 05:38:36 08/25/2008/26/2023 BASIC METAB OLIC PANEL glucose 82 mg/dL 65-99 normal Fasti ng refer ence inter keon Not Available [address], [address], 08/26/2023 05:38:37 08/25/2008/26/2023 BASIC METAB OLIC PANEL urea nitrogen (BUN) 15 mg/dL 7-25 normal Not Available [address], [address], 08/26/2023 05:38:37 08/25/20 23 08/26/2023 BASIC METAB OLIC PANEL creatinine 1.38 mg/dL 0.70-1 .30 high Not Available [address], [address], 08/26/2023 05:38:37 08/25/2008/26/2023 BASIC METAB OLIC PANEL eGFR 59 mL/mi n/1.7 3m2 > or = 60 low Not Available [address] [place], [address], 08/26/2023 05:38:37 08/25/20 23 08/26/2023 BASIC METAB OLIC PANEL BUN/creatini ne ratio 11 (calc ) 6-22 normal Not Available [address], [address], 08/26/2023 05:38:37 08/25/20 23 08/26/2023 BASIC METAB OLIC PANEL sodium 134 mmol/ L 135-14 6 low Not Available [address], [address], 08/26/2023 05:38:37 08/25/20 23 08/26/2023 BASIC METAB OLIC PANEL potassium 4.7 mmol/ L 3.5-5. 3 normal Not Available [address], [address], 08/26/2023 05:38:37 08/25/20 23 08/26/2023 BASIC METAB OLIC PANEL chloride 98 mmol/ L 98-110 normal Not Available [address], [address], 08/26/2023 05:38:37 08/25/20 23 08/26/2023 BASIC METAB OLIC PANEL carbon dioxide 26 mmol/ L 20-32 normal Not Available [address], [address], 08/26/2023 05:38:37 08/25/20 23 08/26/2023 BASIC METAB OLIC PANEL calcium 9.4 mg/dL 8.6-10 .3 normal Not Available [address], [address], 08/26/2023 05:38:37 04/07/20 24 04/07/2024 urina lysis , dipst ick Leukocytes Negati ve Not Available In-Office Order Internal Use Only DO Not Attach Compendium DO Not Attach Compendium, Do Not Delete/merge, [id number] 04/06/2024 11:22:27 04/07/20 24 04/07/2024 urina lysis , dipst ick Nitrite negati ve Not Available In-Office Order Internal Use Only DO Not Attach Compendium DO Not Attach Compendium, Do Not Delete/merge, 04/06/2024 11:22:27 04/07/20 24 04/07/2024 urina lysis , dipst ick Urobilinogen .2 Not Available In-Of fice Order Internal Use Only DO Not Attach Compendium DO Not Attach Compendium, Do Not Delete/merge, 04/06/2024 11:22:27 04/07/20 24 04/07/2024 urina lysis , dipst ick Protein Negati ve Not Available In-Office Order Internal Use Only DO Not Attach Compendium DO Not Attach Compendium, Do Not Delete/merge, 04/06/2024 11:22:27 04/07/20 24 04/07/2024 urina lysis , dipst ick pH 6.0 Not Available In-Office Order Internal Use Only DO Not Attach Compendium DO Not Attach Compendium, Do Not Delete/merge, 04/06/2024 11:22:27 04/07/20 24 04/07/2024 urina lysis , dipst ick Blood Non-He molyze d: Trace Not Available In-Office Order Internal Use Only DO Not Attach Compendium DO Not Attach Compendium, Do Not Delete/merge, 04/06/2024 11:22:27 04/07/20 24 04/07/2024 urina lysis , dipst ick Specific [place] 1.030 Not Available In-Off ice Order Internal Use Only DO Not Attach Compendium DO Not Attach Compendium, Do Not Delete/merge, 04/06/2024 11:22:27 04/07/20 24 04/07/2024 urina lysis , dipst ick Ketone Negati ve Not Available In-Office Order Internal Use Only DO Not Attach Compendium DO Not Attach Compendium, Do Not Delete/merge, 04/06/2024 11:22:27 04/07/20 24 04/07/2024 urina lysis , dipst ick Bilirubin Negati ve Not Available In-Office Order Internal Use Only DO Not Attach Compendium DO Not Attach Compendium, Do Not Delete/merge, 04/06/2024 11:22:27 04/07/20 24 04/07/2024 urina lysis , dipst ick Glucose Negati ve Not Available In-Office Order Internal Use Only DO Not Attach Compendium DO Not Attach Compendium, Do Not Delete/merge, [id number] 04/06/2024 11:22:27 04/07/20 24 04/07/2024 urina lysis , dipst ick Appearance Clear Not Available In-Offi ce Order Internal Use Only DO Not Attach Compendium DO Not Attach Compendium, Do Not Delete/merge, [id number] 04/06/2024 11:22:27 04/07/20 24 04/07/2024 urina lysis , dipst ick Color Yellow Not Available In-Office Order Internal Use Only DO Not Attach Compendium DO Not Attach Compendium, Do Not Delete/merge, [id number] 04/06/2024 11:22:27 06/18/20 24 06/18/2024 LIPID PANEL , STAND SHERRELL cholesterol, total 212 mg/dL <200 high Not Available [facility] [address] [address] [place], [address], 06/18/2024 23:14:00 06/18/20 24 06/18/2024 LIPID PANEL , STAND SHERRELL HDL cholesterol 39 mg/dL > or = 40 low Not Available [address] [address] [place], [address], 06/18/2024 23:14:00 06/18/20 24 06/18/2024 LIPID PANEL , STAND SHERRELL triglyceride s 330 mg/dL <150 high If a non-f astin g speci men was colle cted, consi tashia repea t trigl yceri de testi ng on a fasti ng speci men if clini joe indic ated. Nasim chadwick et al. J. of Clin. Lipid ol. 2015; 9:129 -169. Not Available [address] [address] [place], [address], 06/18/2024 23:14:00 06/18/20 24 06/18/2024 LIPID PANEL , STAND SHERRELL LDL-choleste rol 126 mg/dL _(darcie c) high Refer ence range : <100 Kelsie able range <100 mg/dL for prima ry preve ntion ; <70 mg/dL for patie nts with CHD or diabe tic patie nts with > or = 2 CHD risk facto rs. LDL-C is now calcu lated using the Isabella n-Hop kins calcu jtliliana n, which is a valid ated novel metho d provi ding douglas r accur acy than the Fried frances equat ion in the estim ation of LDL-C . Isabella kapadia SS et al. KAITY. 2013; 310(1 9): 2061- 2068 (http ://ed ucati on.Qu revoPT. Formabilio/f aq/FA Q164) Not Available [facility] [address] [address] [place], [address], 06/18/2024 23:14:00 06/18/20 24 06/18/2024 LIPID PANEL , STAND SHERRELL chol/HDLC ratio 5.4 (calc ) <5.0 high Not Available [facility] [address] [address] [place], [address], 06/18/2024 23:14:00 06/18/20 24 06/18/2024 LIPID PANEL , STAND SHERRELL non HDL cholesterol 173 mg/dL _(darice c) <130 high For patie nts with diabe jeremy plus 1 major ASCVD risk facto r, treat ing to a non-H DL-C goal of <100 mg/dL (LDL- C of <70 mg/dL ) is consi dered a thera peuti c optio n. Not Available [facility] [address] [address] [place], [address], 06/18/2024 23:14:00 09/20/20 24 09/21/2024 LIPID PANEL , STAND SHERRELL cholesterol, total 114 mg/dL <200 normal Not Available [facility] [address] [address] [place], [address], 09/21/2024 04:39:01 09/20/20 24 09/21/2024 LIPID PANEL , STAND SHERRELL HDL cholesterol 41 mg/dL > or = 40 normal Not Available [address], [address], 09/21/2024 04:39:01 09/20/20 24 09/21/2024 LIPID PANEL , STAND SHERRELL triglyceride s 135 mg/dL <150 normal Not Available [facility] [address], [address], 09/21/2024 04:39:01 09/20/2009/21/2024 LIPID PANEL , STAND SHERRELL LDL-choleste rol 51 mg/dL _(darcie c) normal Refer ence range : <100 Kelsie able range <100 mg/dL for prima ry preve ntion ; <70 mg/dL for patie nts with CHD or diabe tic patie nts with > or = 2 CHD risk facto rs. LDL-C is now calcu lated using the Isabella n-Hop [facility] calcu tory n, which is a valid ated novel metho d provi ding douglas r accur acy than the Fried frances equat ion in the estim ation of LDL-C . Isabella kapadia SS et al. KAITY. 2013; 310(1 9): 2061- 2068 (http ://ed ucati on.Qu Pavel AIRVEND. com/f aq/FA Q164) Not Available [address], [address], 09/21/2024 04:39:01 09/20/20 24 09/21/2024 LIPID PANEL , STAND SHERRELL chol/HDLC ratio 2.8 (calc ) <5.0 normal Not Available [address], [address], 09/21/2024 04:39:01 09/20/20 24 09/21/2024 LIPID PANEL , STAND SHERRELL non HDL cholesterol 73 mg/dL _(darcie c) <130 normal For patie nts with diabe jeremy plus 1 major ASCVD risk facto r, treat ing to a non-H DL-C goal of <100 mg/dL (LDL- C of <70 mg/dL ) is miesha salazaro n. Not Available [address] [address] [place], [address], 09/21/2024 04:39:01 09/20/2009/21/2024 COMPR EHENS DANICA METAB OLIC PANEL glucose 96 mg/dL 65-99 normal Fasti ng refer ence inter keon Not Available [address] [address] [place], [address], 09/21/2024 04:39:05 09/20/2009/21/2024 COMPR EHENS DANICA METAB OLIC PANEL urea nitrogen (BUN) 15 mg/dL 7-25 normal Not Available [address] [address] [place], [address], 09/21/2024 04:39:05 09/20/2009/21/2024 COMPR EHENS DANICA METAB OLIC PANEL creatinine 1.23 mg/dL 0.70-1 .35 normal Not Available [address], [address], 09/21/2024 04:39:05 09/20/2009/21/2024 COMPR EHENS DANICA METAB OLIC PANEL eGFR 67 mL/mi n/1.7 3m2 > or = 60 normal Not Available [address] [place], [address], 09/21/2024 04:39:05 09/20/2009/21/2024 COMPR EHENS DANICA METAB OLIC PANEL BUN/creatini ne ratio SEE NOTE: (calc ) 6-22 Not Repor delfina: BUN and Creat inine are withi n refer ence range . Not Available [address] [address] [place], [address], 09/21/2024 04:39:05 09/20/2009/21/2024 COMPR EHENS DNAICA METAB OLIC PANEL sodium 135 mmol/ L 135-14 6 normal Not Available [address], [address], 09/21/2024 04:39:05 09/20/2009/21/2024 COMPR EHENS DANICA METAB OLIC PANEL potassium 3.7 mmol/ L 3.5-5. 3 normal Not Available [address], [address], 09/21/2024 04:39:05 09/20/2009/21/2024 COMPR EHENS DANICA METAB OLIC PANEL chloride 95 mmol/ L 98-110 low Not Available [address], [address], 09/21/2024 04:39:05 09/20/2009/21/2024 COMPR EHENS DANICA METAB OLIC PANEL carbon dioxide 28 mmol/ L 20-32 normal Not Available [address], [address], 09/21/2024 04:39:05 09/20/2009/21/2024 COMPR EHENS DANICA METAB OLIC PANEL calcium 9.0 mg/dL 8.6-10 .3 normal Not Available [address], [address], 09/21/2024 04:39:05 09/20/2009/21/2024 COMPR EHENS DANICA METAB OLIC PANEL protein, total 8.4 g/dL 6.1-8. 1 high Not Available [address], [address], 09/21/2024 04:39:05 09/20/20 24 09/21/2024 COMPR EHENS DANICA METAB OLIC PANEL albumin 3.9 g/dL 3.6-5. 1 normal Not Available [address] [place], [address], 09/21/2024 04:39:05 09/20/2009/21/2024 COMPR EHENS DANICA METAB OLIC PANEL globulin 4.5 g/dL_ (calc ) 1.9-3. 7 high Not Available [address], [address], 09/21/2024 04:39:05 09/20/2009/21/2024 COMPR EHENS DANICA METAB OLIC PANEL albumin/glob ulin ratio 0.9 (calc ) 1.0-2. 5 low Not Available [address], [address], 09/21/2024 04:39:05 09/20/2009/21/2024 COMPR EHENS DANICA METAB OLIC PANEL bilirubin, total 0.7 mg/dL 0.2-1. 2 normal Not Available [address] [address] [place], [address], 09/21/2024 04:39:05 09/20/2009/21/2024 COMPR EHENS DANICA METAB OLIC PANEL alkaline phosphatase 63 U/L 35-144 normal Not Available [address] [address] [place], [address], 09/21/2024 04:39:05 09/20/2009/21/2024 COMPR EHENS DANICA METAB OLIC PANEL AST 16 U/L 10-35 normal Not Available [address] [address] [place], [address], 09/21/2024 04:39:05 09/20/2009/21/2024 COMPR EHENS DANICA METAB OLIC PANEL ALT 11 U/L 9-46 normal Not Available [address] [address] [place], [address], 09/21/2024 04:39:05 09/20/20 09/21/2024 CREAT INE KINAS E, TOTAL creatine kinase, total 65 U/L 44-196 normal Not Available [address] [address] [place], [address], 09/21/2024 04:39:08 09/20/20 24 09/21/2024 EXTRA LAVEN TASHIA-T OP TUBE extra lavender-top tube Not Available [facility] [address] [address] [place], [address], 09/21/2024 04:39:09 09/20/20 24 09/21/2024 EXTRA LAVEN TASHIA-T OP TUBE comment An extra tube was recei kike witho ut a test speci fied. We will hold this speci men in our cold stora ge in the event addit ional testi ng is reque sted. Pleas e conta ct your local clien t servi ce repre senta tive for furth er kody tance withi n 72 hours due to speci men stabi lity. Not Available [facility] [address] [address] [place], [address], 09/21/2024 04:39:09 11/01/20 23 bone densi ty/de xa [facility] [address] [facility] [place] [address] EXAMIN ATION: Bone Densit y Axial ACCESS ION: [id number] EXAM DATE/T OPAL: 023 8:26 AM REASON FOR EXAM: Encoun ter for other specia lized specia l exam., Bilate ral hip replac ement. COMPAR MIGUEL: None FINDIN GS: DEXA bone densit ometry The bone minera l densit y (BMD) was determ ined by dual-e nergy x-ray absorp tiomet ry, the result s are as follow s: AP Lumbar Spine L1 throug h L4 BMD Patien t (GM/SQ CM): 1.056 T-Scor e (Stand sherrell deviat ions from young adult peak bone densit y): -0.3 and a Z-Scor e of 0.3. osteoa rthrit is may falsel y increa se bone minera l densit y measur ed in the lumbar spine. Distal third left radius : BMD Patien t (GM/SQ CM): 0.776 T-Scor e (Stand sherrell deviat ions from young adult peak bone densit y): -0.8 and a Z-Scor e of 0.1. ===== IMPRES MAYCOL:= ==== The patien t bone minera l densit y is Normal accord ing to the World Health Organi zation (WHO) criter ia. Referr ed By: HIRAL Oleary onical ly Signed By: Adán Malik MD on 023 9:07 PM Interp reted By: Adán Malik MD, 023 9:04 PM [facility] [address] [facility], [place], [address], 11/07/2023 15:26:28 11/01/20 23 10/31/2023 bone densi ty No observ ation record ed. [facility] [address] [facility] [address], [address], 11/07/2023 15:26:29 11/10/20 23 nmpns 1d [facility] [place] [address] Myocar dial Perfus ion Imagin g Pat.Na me: ANA CERVANTES, ROBIN Og Pat.ID : [id number] St.Dionicio e: 2022 Refer. : Josesito colin Exam Time: 6:59:0 0 AM Study Type:S EB NC HT MUSCLE IMAGE SPECT MULTI Height : 70 in Weight : 237 lb BSA: 2.24 m2 Age: [birth year],[age]Y Sex: M Sonogr phr: CINTHYA Bernal Pat. Stat.: Outpat ient Reason for Study: Pre-Op erativ e Cardio vascul ar Examin ation Histor y / Clinic al:Hyp ertens ion, Family histor y CAD, Sleep Apnea Proced ures: Nuclea r Stress Test with Lexisc an Surger y: Stress Echo, Event Monito r ++++++ ++++++ ++++++ ++++++ ++++++ ++++++ SUMMAR Y: ++++++ ++++++ ++++++ ++++++ ++++++ ++++++ Stress conclu maycol: 1. Clinic ally negati ve. 2. Electr ocardi ograph ically negati ve stress test for ischem ia. 3. Scinti graphi c images to follow . Perfus ion conclu maycol: 1. Good study qualit y. No motion correc tion was applie d to images . Bowel attenu ation is noted. Prone imagin g was perfor med. 2. Normal myocar dial perfus ion SPECT imagin g. 3. Normal wall motion with an ejecti on fracti on of 80%. 4. Stress test with myocar dial perfus ion imagin g shows overal l low risk for a cardia c event. ++++++ ++++++ ++++++ ++++++ ++++++ ++++++ FINDIN GS: ++++++ ++++++ ++++++ ++++++ ++++++ ++++++ Protoc ol: Lexisc an 0.4mg was given as a rapid inject ion IV over a period of 10 second s with the radiop harmac eutica l inject ed at 20 second s. The images were proces sed using the standa rd SPECT techni que. A gated study was perfor med on the stress images . Impres maycol: SPECT images demons trate normal perfus ion of normal intens ity. Heart Size: The left ventri claude is normal in size. There is left ventri cular hypert rophy. LV Wall Motion : The LVEF is calcul ated to be 80%. Gated SPECT images reveal normal wall motion . Transi ent Ischem ic Dilata tion: The TID is 0.98. ++++++ ++++++ ++++++ ++++++ ++++++ ++++++ STRESS : ++++++ ++++++ ++++++ ++++++ ++++++ ++++++ Baseli ne Vital Signs: ECG: Sinus rhythm HR: 76 bmp Rest BP: 133/91 Regade noson Peak Dose: 0.4 mg Stress Test Result s: Max HR: 95 bmp Target HR: 161 bmp % Target : 59 % Max BP: 122/82 Max RPP: 50721 O2 sat: 99 % Sympto ms and Compli cation s: Termin ated: Protoc ol comple delfina Sympto ms: Lighth eadedn ess Compli cation s: None Stress ECG Interp : Sinus rhythm 2022 09:42 AM Jose aviles M.D. [email or web address], [address], 11/10/2023 11:23:03 10/20/20 24 10/20/2024 MRI, knee, w/o contr ast No observ ation record ed. [email or web address] [address] [address], [place], [address], 10/20/2024 11:16:46 Result Notes None recorded. Problems Name Problem SNOMED Code Status Onset Date Resolution Date Notes Provider Name and Address Organization Details Recorded Time Psoriati c arthriti s 232981043 Active 2021 GEORGE Rosario Attn: Accounting ,[address] [facility], [place], [address] , [facility] - SI 2 09:37:38 Hyperlip idemia 67213711 Active 2022 GEORGE Rosario Attn: Accounting ,[address] 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 88079573 Completed 201208/12/2013 Location : None;Sev erity: Moderate ;Progres s: Stable;A dded By: Willa Harvey;Add to Current Problems : NO Not Available Pending sale to [facility] 7 10:39:32 Acute upper respirat ory infectio n of multiple sites Completed 201310/06/2014 Location : None;Sev erity: Moderate ;Progres s: Stable;A dded By: Willa Harvey;Add to Current Problems : YES Not Available Pending sale to [facility] 7 10:39:32 Urine finding [id number] Completed 201309/26/2021 Location : None;Sev erity: Moderate ;Progres s: Stable;A dded By: Willa Harvey;Add to Current Problems : NO GEORGE Rosario Attn: Accounting ,[address] [place], [address] , [facility] 11:13:45 Edema [id number] Completed 201110/30/2012 Location : None;Sev erity: Moderate ;Progres s: Stable;A dded By: Sarabjit Collins;Add to Current Problems : NO Not Available Pending sale to [facility] 7 10:39:32 Acute conjunct ivitis 43364370 Completed 201208/12/2013 Location : None;Sev erity: Moderate ;Progres s: Stable;A dded By: Sarabjit Collins;Add to Current Problems : NO Not Available Pending sale to [facility] 7 10:39:32 Cellulit is [id number] Completed 201209/26/2021 Location : None;Sev erity: Moderate ;Progres s: Stable;A dded By: Sarabjit Collins;Add to Current Problems : NO GEOGRE Rosario Attn: Accounting ,[address] [place], [address] , [facility] 11:13:36 Nausea and vomiting 56590475 Completed 201208/27/2013 Location : None;Sev erity: Moderate ;Progres s: Stable;A dded By: Sarabjit Collins;Add to Current Problems : NO Not Available Pending sale to [facility] 7 10:39:32 Allergic urticari a 18820411 Completed 201211/12/2013 Location : None;Sev erity: Moderate ;Progres s: Stable;A dded By: Sarabjit Collins;Add to Current Problems : NO Not Available Pending sale to [facility] 7 10:39:32 Pruritic disorder 179479518 Completed 201302/10/2014 Location : None;Sev erity: Moderate ;Progres s: Stable;A dded By: Adams Collinsstide s Jacob;Add to Current Problems : NO Not Available Pending sale to [facility] 7 10:39:32 Dermatop hytosis of the perianal area Completed 201305/27/2014 Location : None;Sev erity: Moderate ;Progres s: Stable;A dded By: Sarabjit Collins;Add to Current Problems : NO Not Available Pending sale to [facility] 7 10:39:32 Screenin g procedur e Completed 201305/27/2014 Location : None;Sev erity: Moderate ;Progres s: Stable;A dded By: Sarabjit Collins;Add to Current Problems : NO Not Available Pending sale to [facility] 7 10:39:32 Screenin g for malignan t neoplasm of colon Active 2013 Location : None;Sev erity: Moderate ;Progres s: Stable;A dded By: Sarabjit Collins;Add to Current Problems : NO Not Available Pending sale to [facility] 7 10:39:32 Angioede ma [id number] Completed 201309/09/2014 Location : None;Sev erity: Moderate ;Progres s: Stable;A dded By: Sarabjit Collins;Add to Current Problems : YES Not Available Pending sale to [facility] 7 10:39:33 Internal hordeolu m [id number] Completed 201309/26/2021 Location : None;Sev erity: Moderate ;Progres s: Stable;A dded By: Sarabjit Collins;Add to Current Problems : YES EGORGE Rosario Attn: Accounting ,[address] [facility], [place], [address] , [facility] 11:13:41 Multiple joint pain 77649139 Active 2014 Location : None;Sev erity: Moderate ;Progres s: Stable;A dded By: Sarabjit Collins;Add to Current Problems : YES Not Available Pending sale to [facility] 7 10:39:33 Viral screenin g Completed 201405/20/2015 Location : None;Sev erity: Moderate ;Progres s: Stable;A dded By: Sarabjit Collins;Add to Current Problems : YES Not Available Pending sale to [facility] 7 10:39:33 Eruption [id number] Completed 201211/12/2013 Location : None;Sev erity: Moderate ;Progres s: Stable;A dded By: Antonella Foreman;Add to Current Problems : NO Not Available Pending sale to [facility] 7 10:39:33 Edema 440600172 Completed 201302/10/2014 Location : None;Sev erity: Moderate ;Progres s: Stable;A dded By: Antonella Foreman;Add to Current Problems : NO Not Available Pending sale to [facility] 7 10:39:33 Hip pain 61611847 Completed 201509/26/2021 Location : None;Sev erity: Moderate ;Progres s: Stable;A dded By: Antonella Foreman;Add to Current Problems : YES GEORGE Rosario Attn: Accounting ,[address] 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 Active 2012 Location : None;Sev erity: Moderate ;Progres s: Stable;A dded By: Denia Cobos i;Dayne dd to Current Problems : YES Not Available Pending sale to [facility] 10:39:33 Swelling of limb 47705810 Completed 201405/20/2015 Location : None;Sev erity: Moderate ;Progres s: Stable;A dded By: Denia Cobos i;Dayne dd to Current Problems : NO Not Available Pending sale to [facility] 7 10:39:33 Idiopath ic urticari a 36179452 Completed 201110/29/2012 Location : None;Sev erity: Moderate ;Progres s: Stable;A dded By: Marychuy Castrejon;Add to Current Problems : NO Not Available Pending sale to [facility] 10:39:33 Problem Notes None recorded. Procedures Surgical History Date Name Laterality Status Provider Name and Address Organization Details Recorded Time Arthroscopic Surgery completed Antonella Waddell [facility] 12/13/2016 13:56:13 Joint Replacement completed Antonella Waddell [facility] 12/13/2016 13:56:17 Imaging Results Imaging Date Name Status LastModified by Organiz atformerly [facility], [facility] Details LastModified Time 11/01/2023 bone density/dexa completed [address], [place], [address], 11/07/2023 15:26:28 10/31/2023 bone density completed [facility] [address], [address], 11/07/2023 15:26:29 11/10/2023 [email or web address] completed [email or web address] [place], [address], 11/10/2023 11:23:03 10/20/2024 MRI, knee, w/o contrast completed [email or web address] [address], [place], [address], 10/20/2024 11:16:46 Procedure Notes None recorded. Medical Equipment None Reported. Allergies No known drug allergies Medications Name Sig Start Date Stop Date Status Note LastModified by Organization Details LastModified Time prednison e 10 mg tabs 11/26 completed Not Available Not Available Not Available methylpre dnisolone dose pack 4 mg tbpk 11/25 completed Not Available Not Available Not Available cyclobenz aprine hcl 10 mg tabs 11/26 completed Not Available Not Available Not Available clobetaso l propionat e 0.05 % foam 11/26 completed Not Available Not Available Not Available insulin syringe 29g x 1/2 1 ml mis insulin syringe 29g x 1/2 1 ml mis c 09/20 completed Not Available Not Available Not Available hydroxyzi ne hcl 25 mg tabs 11/26 completed Not Available Not Available Not Available ketorolac trometham ine 10 mg tabs 11/26 completed Not Available Not Available Not Available chlorthal idone 25 mg tabs 05/11 completed Not Available Not Available Not Available losartan 50 mg tablet TAKE 1 TABLET BY MOUTH EVERY DAY active Not Available Not Available No t Available cyclobenz aprine 10 mg tablet TAKE 1 TABLET BY MOUTH EVERY NIGHT AT BEDTIME NEEDED FOR SPASM active Not Available Not Available No t Available amoxicill in 500 mg capsule TAKE 1 CAPSULE BY MOUTH FOUR TIMES DAILY UNTIL ALL TAKEN 10/01 completed Not Available Not Available Not Available promethaz ine-DM 6.25 mg-15 mg/5 mL oral syrup Take 1-2 tsp every 4-6 hrs as needed for cough 04/05 completed RxNorm: 782016;A llow Substitu tion: True Not Available Not Available Not Available prednison e 10 mg tablet TAKE 1 TABLET BY MOUTH TWICE DAILY FOR 10 DAYS 01/04 completed Not Available Not Available Not Available enalapril maleate 10 mg tablet Take 1 tablet(s ) by mouth daily 07/11 completed RxNorm: 601767;A llow Substitu tion: True Not Available Not Available Not Available sildenafi l 50 mg tablet Take 1 tablet every day by oral route as needed. 06/29 completed Not Available Not Available Not Available cetirizin e 10 mg tablet Take 1 tablet every day by oral route. 04/22 completed Not Available Not Available Not Available Pepcid Complete 10 mg-800 mg-165 mg chewable tablet chew 1-2 tablets in am and at bedtime as needed 12/24 completed Allow Substitu tion: True Not Available Not Available Not Available hydrocodo ne 5 mg-acetam inophen 325 mg tablet TAKE 1 TO 2 TABLETS BY MOUTH EVERY 6 HOURS NEEDED FOR PAIN 04/06 completed Not Available Not Available Not Available prednison e 20 mg tablet TAKE 1 TAB BY MOUTH DAILY FOR 7 DAYS, THEN 1/2 TABS DAILY FOR 7 DAYS 09/26 completed Not Available Not Available Not Available Flonase 50 mcg/actua tion nasal spray,lucille pension 2 spray(s) in each nostril daily 04/05 completed RxNorm: 136612;A llow Substitu tion: True Not Available Not Available Not Available chlorthal idone 25 mg tablet TAKE 2 TABLETS BY MOUTH EVERY DAY active Not Available Not Available No t Available insulin syringe U-100 with needle 1 mL 29 gauge x 7/16 USE DIRECTED TO INJECT METHOTRE XATE WEEKLY 09/20 completed Not Available Not Available Not Available methotrex ate sodium 25 mg/mL injection solution ADMINIST ER 0.8 ML UNDER THE SKIN EVERY 7 DAYS 08/25 completed Not Available Not Available Not Available ciproflox acin 500 mg tablet TAKE 1 TABLET BY MOUTH TWICE DAILY FOR 30 DAYS. BEGIN TAKING AFTER SURGERY. 09/20 completed Not Available Not Available Not Available tramadol 50 mg tablet TAKE 1 TABLET BY MOUTH EVERY 4 TO 6 HOURS NEEDED FOR PAIN 06/29 completed Not Available Not Available Not Available Kenalog 40 mg/mL suspensio n for injection Take 1.5 mL by injectio n route. 11/25 completed Given by Denia Cobos i, MA Not Available Not Available Not Available cefadroxi l 500 mg capsule Take 1 capsule( s) by mouth q12h 11/26 completed Not Available Not Available Not Available meloxicam 7.5 mg tablet TAKE 1 TABLET BY MOUTH TWICE DAILY NEEDED FOR PAIN 09/20 completed Not Available Not Available Not Available amoxicill in 875 mg tablet Take 1 tablet(s ) by mouth q12h for 10 days 03/16 completed RxNorm: 293974;A llow Substitu tion: True Not Available Not Available Not Available prednisol one acetate 1 % eye drops,lucille pension SHAKE LIQUID AND INSTILL 1 DROP IN RIGHT EYE FOUR TIMES DAILY FOR 5 DAYS 01/04 completed Not Available Not Available Not Available benzonata te 100 mg capsule Take 1 capsule 3 times a day by oral route as needed. 12/27 completed Not Available Not Available Not Available clobetaso l 0.05 % topical foam Apply by topical route for 30 days. 07/17 completed Not Available Not Available Not Available gabapenti n 300 mg capsule TAKE 1 CAPSULE BY MOUTH THREE TIMES A DAY 06/29 completed Not Available Not Available Not Available diclofena c sodium 75 mg tablet,de layed release Take 1 tablet twice a day by oral route. active Not Available Not Available No t Available folic acid 1 mg tablet Take 1 tablet every day by oral route. 09/20 completed Not Available Not Available Not Available hydrocort isone 2.5 % topical cream APPLY TOPICALL Y TO AXILLA RASH TWICE DAILY NEEDED FOR 14 DAYS 01/09 completed Not Available Not Available Not Available hydroxyzi ne HCl 25 mg tablet TAKE 1 TABLET BY MOUTH AT BEDTIME NEEDED FOR ITCHING active Not Available Not Available No t Available hydrochlo rothiazid e 25 mg tablet 1 tablet PO QD 07/11 completed RxNorm: 820670;A llow Substitu tion: True Not Available Not Available Not Available metoprolo l succinate ER 25 mg tablet,ex tended release 24 hr Take 1 tablet po daily 02/21 completed RxNorm: 424129;A llow Substitu tion: True Not Available Not Available Not Available ergocalci ferol (vitamin D2) 1,250 mcg (50,000 unit) capsule TAKE 1 CAPSULE BY MOUTH EVERY WEEK DIRECTED 07/09 completed Not Available Not Available Not Available fluocinol one 0.01 % topical solution APPLY TO THE AFFECTED AREA(S) BY TOPICAL ROUTE 2 TIMES PER DAY 01/04 completed Not Available Not Available Not Available methylpre dnisolone 4 mg tablets in a dose pack Take as directed with food 06/29 completed Not Available Not Available Not Available ketoconaz ole 2 % topical cream apply small amount to affected area Bid 07/11 completed RxNorm: 907904;A llow Substitu tion: True Not Available Not Available Not Available cefdinir 300 mg capsule Take 1 capsule every 12 hours by oral route for 10 days. 03/26 completed Not Available Not Available Not Available naproxen 500 mg tablet TAKE 1 TABLET BY MOUTH TWICE DAILY NEEDED FOR PAIN 04/06 completed Not Available Not Available Not Available Benadryl 25 mg capsule Take 2 capsules every day by oral route as needed. 11/26 completed Not Available Not Available Not Available Bactrim DS 800 mg-160 mg tablet Take 1 tab twice daily with food x 3 days 12/04 completed RxNorm: 391414;A llow Substitu tion: True Not Available Not Available Not Available methotrex ate sodium (PF) 25 mg/mL injection solution ADMINIST ER 0.8 ML UNDER THE SKIN EVERY 7 DAYS 08/25 completed Not Available Not Available Not Available rosuvasta tin 10 mg tablet TAKE 1 TABLET BY MOUTH EVERY DAY AT BEDTIME 07/16 completed Not Available Not Available Not Available rosuvasta tin 20 mg tablet TAKE 1 TABLET BY MOUTH EVERY DAY AT BEDTIME 06/21 completed Not Available Not Available Not Available rosuvasta tin 40 mg tablet TAKE 1 TABLET BY MOUTH EVERY DAY active Not Available Not Available No t Available tadalafil 5 mg tablet TAKE 1 TABLET BY MOUTH DAILY. MAY TAKE AN ADDITION AL 1 TO 3 TABLETS NEEDED FOR INTERCOU RSE. active Not Available Not Available No t Available metoprolo l tartrate 25 mg tablet TAKE 1 TABLET BY MOUTH EVERY DAY active Not Available Not Available No t Available clobetaso l 0.05 % shampoo 07/17 completed Not Available Not Available Not Available sildenafi l (pulmonar y hypertens ion) 20 mg tablet TAKE 1 TO 5 TABLETS BY MOUTH DAILY NEEDED active Not Available Not Available No t Available chlorthal idone 01/04 completed Not Available Not Available Not Available ProAir HFA 90 mcg/actua tion aerosol inhaler Inhale 2 puffs every 4 hours by inhalati on route as needed. 12/27 completed Not Available Not Available Not Available cholecalc iferol (vitamin D3) 1,250 mcg (50,000 unit) capsule TAKE 1 CAPSULE BY MOUTH EVERY WEEK 07/09 completed Not Available Not Available Not Available halobetas ol propionat e 0.05 % topical foam APPLY A THIN LAYER TO THE AFFECTED AREA(S) BY TOPICAL ROUTE 2 TIMES PER DAY DO NOT EXCEED 50 GRAMS PER WEEK OR 2 WEEKS DURATION 01/04 completed Not Available Not Available Not Available Paxlovid 300 mg (150 mg x 2)-100 mg tablets in a dose pack TAKE 1 DOSE PACK BY MOUTH DIRECTED 04/06 completed Not Available Not Available Not Available Vitals Date Recorded Body height Body mass index (BMI) Body weight Body temperature Heart rate Oxygen saturation Oxygen saturation in Arterial blood by Pulse oximetry Systolic blood pressure Diastolic blood pressure Provider Name and Address Organization Details Last Updated DateTime 3 177.8 cm 34.3 kg/m2 802252. 58 g 97.7 [degF] 77 /min 98 % 98 % 123 mm[Hg] 83 mm[Hg] Debra Parker MA [place] - [facility] 3 14:05:11 Date Recorded Body height Body mass index (BMI) Body weight Oxygen saturation Oxygen saturation in Arterial blood by Pulse oximetry Heart rate Body temperature Provider Name and Address Organization Details Last Updated DateTime 4 177.8 cm 35.6 kg/m2 507932. 91 g 97 % 97 % 73 /min 97.5 [degF] Michi Sifuentes MA [place] - [facility] 4 10:40:41 Date Recorded Systolic blood pressure Diastolic blood pressure Provider Name and Address Organization Details Last Updated DateTime 04/06/2024 136 mm[Hg] 86 mm[Hg] GEORGE Rosario Attn: Accounting,[address] [place], [address], [place] 04/06/2024 11:19:10 Date Recorded Body height Body mass index (BMI) Body weight Body temperature Heart rate Oxygen saturation Oxygen saturation in Arterial blood by Pulse oximetry Systolic blood pressure Diastolic blood pressure Provider Name and Address Organization Details Last Updated DateTime 4 177.8 cm 33 kg/m2 135946. 65 g 97.4 [degF] 62 /min 97 % 97 % 110 mm[Hg] 74 mm[Hg] Meme Rodriguez MA [place] 4 09:26:37 Date Recorded Body height Body mass index (BMI) Body weight Oxygen saturation Oxygen saturation in Arterial blood by Pulse oximetry Heart rate Body temperature Systolic blood pressure Diastolic blood pressure Provider Name and Address Organization Details Last Updated DateTime 5 177.8 cm 35.2 kg/m2 182294. 13 g 96 % 96 % 73 /min 97.8 [degF] 122 mm[Hg] 78 mm[Hg] Lupe Alfaro [place] 5 09:34:01 Social History Question Answer Notes LastModified by Organizat ion Details LastModified Time Tobacco Smoking Status Never Smoker GEORGE Rosario Attn: Accounting,[address] [place], [address], [facility] - [facility] 11/26/2018 11:26:14 Do You Have An Advance Directive? Yes Information n ot available 01/09/2023 What Is Your Level Of Alcohol Consumption? None Information not available 06/29/2021 What Is Your Level Of Caffeine Consumption? Occasional Information not available 06/29/2021 In The 14 Days Before Symptom Onset, Have You Had Close Contact With A Laboratory-confirm ed COVID-19 While That Case Was Ill? No Information n ot available 01/09/2023 In The 14 Days Before Symptom Onset, Have You Had Close Contact With A Person Who Is Under Investigation For COVID-19 While That Person Was Ill? No Information not available 01/09/2023 Have You Been To An Area Known To Be High Risk For COVID-19? No Information not available 01/09/2023 Are There Any Guns Present In Your Home? Yes Information not available 01/09/2023 What Was The Date Of Your Most Recent Tobacco Screening? 01/04/2025 Information not available 01/04/2025 Do You Use Your Seat Belt Or Car Seat Routinely? Yes Information not available 01/09/2023 Do You Have Smoke And Carbon Monoxide Detectors In Your Home? Yes Information not available 01/09/2023 Do You Feel Stressed (tense, Restless, Nervous, Or Anxious, Or Unable To Sleep At Night)? [id number] Information not available 01/09/2023 Do You Use Any Illicit Or Recreational Drugs? No Information not available 06/29/2021 Has Tobacco Cessation Counseling Been Provided? No Information not available 06/29/2021 Sex: Male Functional Status None recorded. Mental Status None recorded. Family History Relationship Description Onset Age of this Age Resolved Age Notes LastModified by Organization Details LastModified Time Mother Malignant tumor of breast [email or web address] Not available 2016 13:56:29 Mother Hypertensive disorder [email or web address] Not available 2016 13:56:35 Father Hypertensive disorder charrisma Not available 2016 13:56:41 Brother Malignant tumor of colon [email or web address] Not available 2020 22:26:43 Medical History Condition Response High Blood Pressure Y Immunizations Vaccine Type Date Status Note Provider Nam e and Address Organization Details Recorded Time COVID-19, mRNA, LNP-S, PF, 30 mcg/0.3 mL dose 02/22/2021 completed GEORGE Rosario Attn: Accounting,[address] [place], [address], [place] [facility] 01/04/2025 10:07:39 COVID-19, mRNA, LNP-S, PF, 30 mcg/0.3 mL dose 03/15/2021 completed GEORGE Rosario Attn: Accounting,[address] [place], [address], [place] [facility] 01/04/2025 10:07:39 COVID-19, mRNA, LNP-S, PF, 30 mcg/0.3 mL dose 11/15/2021 completed GEORGE Rosario Attn: Accounting,[address] [facility], [place], [place], [address] [place] [address], [place] [facility] 01/04/2025 10:07:39 Hep B, adult 01/22/2012 completed GEORGE Shaw Attn: Accounting,[address] [facility], [place], [place], [address] [place] [address], [place] [facility] 01/04/2025 10:07:39 Hep B, adult 03/19/2012 completed GEORGE Shaw Attn: Accounting,[address] [place], [place], [address] [place] [address], [place] [facility] 01/04/2025 10:07:39 Hep B, adult 10/19/2012 completed GEORGE Shaw Attn: Accounting,[address] [facility], [place], [address] [place] [address], [place] [facility] 01/04/2025 10:07:39 Hep A, adult 01/22/2012 completed GEORGE Shaw Attn: Accounting,[address] [facility], [place], [address] [place] [address], [place] [facility] 01/04/2025 10:07:39 Hep A, adult 10/19/2012 completed GEORGE Shaw Attn: Accounting,[address] [facility], [place], [address] [place] [address], [place] [facility] 01/04/2025 10:07:39 Tdap 10/01/2022 completed Beatriz Proctor [place], [place] [facility] 10/01/2022 11:11:21 Hep A, adult 11/20/2022 completed Jeanette kapadia LPN [place], [place] [facility] 11/20/2022 10:28:05 Hep A, adult 07/09/2023 completed Lupe narayan [place], [place] [facility] 07/09/2023 11:59:16 Tdap 03/18/2011 completed Not Available [facility] 11/27/2016 05:52:57 Past Encounters Encounter ID Performer Location Encounter Start Date Encounter Closed Date Diagnosis/Indication Diagnosis SNOMED-CT Code Diagnosis ICD10 Code Diagnosis Note [id number] GEORGE Rosario [facility] [address] [place] [address] 12/13/2016 13:43:39 12/16/2016 14:08:49 Urticaria 829253113 L50.9 Angioedema 61870422 T78. 3XXA Arthritis 8155906 M19.90 [id number] Jadiel Collins MD [facility] [address] [place] [address] 04/22/2017 14:33:29 04/22/2017 15:54:54 Chest pain 29708141 R07.9 Syncope 797370544 R55 [id number] Jadiel Collins MD [facility] [address] [place] [address] 05/21/2017 10:36:55 05/21/2017 13:08:13 Benign essential hypertension 7341402 I10 Stress 56693141 Z73.3 Hand pain 19863327 M79.6 41 [id number] Jadiel Collins MD [facility] [address] [place] [address] 11/04/2017 16:37:50 11/04/2017 17:27:09 Benign essential hypertension 7492819 I10 Idiopathic urticaria 422 00459 L50.1 [id number] GEORGE Rosario [facility] [address] [place] [address] 03/10/2018 10:08:14 03/11/2018 15:32:39 Lateral epicondylitis 865249313 M77.11 Ice as much as possible. Try to rest right arm as much as possible. Call if no better for PT [id number] Jadiel Collins MD [facility] [address] [place] [address] 05/11/2018 16:23:40 05/12/2018 11:15:09 Benign essential hypertension 2588778 I10 Tenosynovitis of hand 42 2486619 M65.849 Gastritis 3352761 K29.70 [id number] GEORGE Rosario [facility] [address] [place] [address] 11/26/2018 10:09:15 11/27/2018 09:02:19 Acute bronchitis 55982719 J20.9 if no better in the next 3 days will get cxr Otitis media 78033573 H6 6.92 Benign ess ential hypertension 9243754 I10 Screening for malignant neoplasm of prostate 795805066 Z12.5 [id number] GEORGE Rosario [facility] [address] [place] [address] 03/26/2019 15:31:33 03/29/2019 09:07:02 Ganglion/synovial cyst - hand 245571335 M67.442 Pain in thumb 005128914 M79.383 [id number] Silvia Whitlock [facility] [address] [place] [address] 12/27/2019 16:45:02 12/28/2019 10:22:48 Benign essential hypertension 1823409 I10 Gout 14215977 M10.9 Family his tory of diabetes mellitus 927601303 Z83.3 Pain in right foot 12822 87012 35344 M79.671 Pain in left foot 587638 3078 74376 M79.672 Pain of le ft ankle joint 3715127876 3322974 M25.572 Primary er ectile dysfunction 282404113 N52.9 [id number] LISANDRA Olson [address] [place] [address] 06/05/2020 12:37:51 06/06/2020 11:17:03 Suspected COVID-19 672060886 Z03.818 D/w pt the current pandemic of COVID-19 and call for social isolation in order to blunt the curve and minimize risk and spread. Encouraged patient and family to take restrictio ns seriously. They have verbalized understand ing of such. Viral syndrome 683271566 B34.9 [id number] LISANDRA PAREDES [address] [place] [address] 10/27/2020 13:15:37 10/30/2020 09:02:05 Suspected COVID-19 784115789 Z03.89 [id number] [facility] [address] [place] [address] 03/16/2021 14:09:01 03/19/2021 10:53:19 Dyspnea 073649904 R06.00 Chest pain 96618878 R07. 9 all troponins negative, CXR negative, labs good except WBCs. We will try to get him in [facility] due to insurance impending lapse due to loss of job, for repeat stress testing if indicated. Leukocytosis 473544986 D 72.829 Unintentio nal weight loss 033760423 R63.4 since COVID, not eating since lost of taste. Panic attack 976063819 F 41.0 declines medication for prn [id number] ALFONZO Waller [facility] [address] [place] [address] 06/29/2021 09:14:25 06/29/2021 13:38:29 Bilateral localized swelling of hands 7682643421 3679292 R22.33 will get results and make further recommenda tions Benign ess ential hypertension 3908277 I10 [id number] GEORGE Rosario [facility] [address] [place] [address] 09/26/2021 10:32:48 09/27/2021 10:23:51 C-reactive protein above reference range 1897291393 48698 R79.82 Erythrocyt e sedimentation rate above reference range 945229419 R70.0 Benign ess ential hypertension 7960673 I10 Degenerati on of lumbar intervertebral disc 58128429 M51.36 10/02 having MRI and discogram. 12/24 will be discussing all of the results and decide which surgery is planned. All workmen's comp. Has had nerve blocks done and other injections . Electrocar diogram abnormal 571099003 R94.31 was supposed to have a Lexiscan 4 years ago and never done, only holter testing done. Pre-surger y evaluation 864087435 Z01.629 [id number] [facility] [address] [place] [address] 10/01/2022 09:34:08 10/02/2022 11:21:14 Adult health examination 233198742 Z00.00 Vitamin D deficiency 347 82652 E55.9 Benign ess ential hypertension 5118854 I10 Psoriatic arthritis [address] Kenyetta Reaves, will copy labs to her. Administra tion of diphtheria, pertussis, and tetanus vaccine 675123856 Z23 Screening for malignant neoplasm of prostate 209606467 Z12.5 Dyslipidemia 196995276 E 78.5 fasting today for lab Obesity 141343220 E66.9 issues with activity due to his back injury. Screening for malignant neoplasm of colon 881777282 Z12.11 2013 timbo, 2 polyps, adenomas, overdue Fatigue 94342403 R53.83 Secondary erectile dysfunction 939015265 N52.39 if all lab ok, I told him to hold his chlorthali done and if helps his ED, he will keep an eye on his BP and if >140/90 will adjust/add BP meds [id number] Jeanette Multani LPN [facility] [address] [place] [address] 11/20/2022 10:04:59 11/20/2022 11:34:13 Active or passive immunization 678723595 Z23 [id number] GEORGE Rosario [facility] [address] [place] [address] 01/09/2023 09:28:24 01/10/2023 13:06:04 Benign essential hypertension 7091693 I10 great control today, no changes Obesity 720889394 E66.9 issues with activity due to his back injury. Still seeing neurosurge ry for this, has not scheduled surgery yet. Hyperlipidemia 49948937 E78.5 do not stop crestor, reviewed his recent lab. He understand s CV benefit, will continue to take Psoriasis 6890568 L40.9 Med Rx by derm works so well in his scalp and pubic area in just 2-3 days, given per Music, will refill here. Requires a hepatitis A vaccination 819842676 Z28.39 not due til April Psoriatic arthritis 1563 76690 L40.50 will fill out form for handicappe d parking placard for as needed use. WAs taking naproxen and diclofenac together, will stop the naproxen. [id number] GEORGE Rosario [facility] [address] [place] [address] 07/09/2023 10:12:21 07/10/2023 10:56:13 Benign essential hypertension 8786295 I10 Will stop metoprolol and chlorthali done due to poor control and bradycardi a. Will f/u in 3 months for recheck BP and recheck BMP. Hyperlipidemia 12898408 E78.5 do not stop crestor, reviewed his recent lab. He understand s CV benefit, will continue to take Morbid obesity 242329406 E66.01 Patient with work on healthier whole food diet, routine exercise in attempt to lose weight. Requires a hepatitis A vaccination 577846239 Z28.39 due for second shot now. Psoriatic arthritis 1563 92065 L40.50 now on full disability , taking methotrexa te regularly weekly, just saw rheum at [facility], really doesn't like his bedside manner, will try to get establishe d at [facility]. Erectile dysfunction 860 035941 F52.21 hopefully stopping chlorthali done and metoprolol will help. Seborrheic dermatitis 50 629505 L21.9 Abnormal weight gain 161 646018 R63.5 due to inactivity from his back issues and joint issues, but will make sure no thyroid issues with other autoimmuni ty. [id number] GEORGE Rosario [facility] [address] [place] [address] 08/25/2023 13:51:04 08/28/2023 10:11:38 Benign essential hypertension 8294008 I10 We stopped metoprolol and chlorthali done due to poor control and bradycardi a and added LETTY 6 weeks ago. MUCH better control today, check BMP today, no changes Hyperlipidemia 98856006 E78.5 increased his statin dose 6 weeks ago, will rech fasting lipid today Obesity 253016301 E66.9 issues with activity due to his back injury. Still seeing neurosurge ry for this, has not scheduled surgery yet. But aiming for after mid August [id number] GEORGE Rosario [facility] [address] [facility] [address] [place] [address] 10/20/2023 14:54:15 10/21/2023 09:39:23 COVID-19 359506139 U07.1 Stay very hydrated. Monitor for red flag symptoms like SOB, pleuritic CP, swelling or extreme weakness. Continue Mucinex DM and tylenol as needed for Headaches or fever. Hold statin for the duration of Paxlovid RX. Contagion reviewed, 5 days isolation and then 5 additional day of public masking as long as no fevers and feeling 80% improved. Immodium for his diarrhea [id number] GEORGE Rosario [facility] [address] [facility] [address] [facility] [place] [address] 04/06/2024 09:55:47 04/12/2024 17:06:29 Benign essential hypertension 7255927 I10 fasting today, so will get annual labs. Good at home <130/80s Screening for malignant neoplasm of colon 076944882 Z12.11 2013 timbo, 2 polyps, adenomas, overdue for repeat. Will refer to GI Hemospermia 18069908 R36 .1 with urinary urgency and ED, will refer to urology. Screening for malignant neoplasm of prostate 702742644 Z12.5 Hyperlipidemia 64961724 E78.5 continue statin therapy. Will rech today, fasting Psoriatic arthritis 1563 69554 L40.50 Last saw provider at [facility], no meds at the moment, will put in referral for future to get re-establi shed. Continues with chronic joint pain and stiffness. [id number] GEORGE Rosario [facility] [address] [facility] [address] [facility] [address] 09/20/2024 09:07:31 09/20/2024 14:07:17 Benign essential hypertension 0605079 I10 great control today, no changes. Down 18 pounds in 5 months. Hyperlipidemia 42007614 E78.5 We increased his crestor to 40 last visit, was not at goal, Will rech today, fasting. Psoriatic arthritis 1563 01860 L40.50 saw [facility] provider in May, apparently they wanted MRI and 300$ upfront and declines scan, and never scheduled f/u visit. REviewed meds, he will take EITHER naproxen or diclofenac for pain, may add tylenol arthritis 3x a day in addition prn. Since he is not taking MTX he can stop folic acid. Encouraged f/u appt with rheumatdorothy starr to discuss trial of biologics which was the next step, printed out their contact info for him to call. Health Concerns Section Related Observation LastModified by Organization Detai ls LastModified Time None Recorded Concern Status LastModified by Organization Details LastModified Time None Recorded Advance Directives Directive Y: Payers Encounter Date Sequence Insurance Name Policy Number Policy Vu Covered Member ID Vu Member ID Guarantor Name 08/25/2023 1 [place] [id number] Gladys Blanco [id number] Robin Blanco 10/20/2023 1 [place] [id number] Gladys Blanco [id number] Robin Blanco 04/06/2024 1 [facility] (MEDICARE REPLACEMENT/A DVANTAGE - PPO) [id number] Robin Blanco [id number] Robin Blanco 09/20/2024 1 [facility] (MEDICARE REPLACEMENT/A DVANTAGE - PPO) [id number] Robin Blanco [id number] Robin Blanco Notes Date Note Type Note Provider Name and Address Organization Details Recorded Time 3 text/html HyperlipidemiaReported bypatient.Duration:chronic Control:usually well controlled Current Therapy:currently taking: (rosuvastatin 20mg); last cholesterol level: (185); last LDL level: (111); last triglyceride level: (260); last HDL level: (37); last non HDL level: (148); results as of 07-09-23 Compliance:compliant Complications:no coronary artery disease; no peripheral artery disease; no cardiovascular diseaseNotes:stopped the metoprolol and chlorthalidone last visit, started on ARB, here for F/u Dr. Avila scheduling disc replacement after mid August. pt said no flu shotpt has disability papers that he would like filled outpt took BP on his own machine and 133/93 and 65 pulse GEORGE Rosario Attn: Accounting,[address] [facility], [place], [address], [facility] - [facility] 08/27/2023 22:28:16 3 text/html COVID-19 Symptoms March 2020Reported bypatient.COVID-19 Signs and Symptomscough improving (very little); fever resolved; muscle pain improving (same); headache improving; sore throat improving; vomiting or diarrhea same (diarrhea); fatigue same Contacts and Exposureclose contact with a confirmed or suspected case of COVID-19 Quality:dry cough Duration:symptoms lasting 5 days Onset/Timing:date of symptoms onset: () Associated Symptoms:fatigue;diarrhea;b viktor aches Prior Labs and Imagingcovid test 10/15/23 postive GEORGE Rosario Attn: Accounting,[address] [facility], [place], [address], [facility] 10/20/2023 15:31:35 4 text/html Hypertension F/UReported bypatient.Associated Symptoms:no dizziness; no lightheadedness; no palpitations;edema(hands and feet but states its work related from an injury) Lifestyle:not exercising regularly;high salt intake Medications:taking medications as directed; no side effects from medicationNotes:Lots of urinary urgency, no incontinence. Blood in the semen the last couple of times. Also continued ED that he'd like other options for. here to discuss BP and talk about back surgery that patient had recently and to discuss other things(colonoscopy for example) GEORGE Rosario Attn: Accounting,[address] [facility], [place], [address], [facility] 04/12/2024 12:01:21 4 text/html Hypertension F/UReported bypatient.Associated Symptoms:no dizziness; no lightheadedness; no chest pain; no shortness of breath; no palpitations; no calf pain with exertion;edema Lifestyle:limiting/avoiding salt Medications:taking medications as directed; no side effects from medicationNotes:increased his stating to crestor 40mg last visit, lipids were not at goal, due for recheck todayLast went to [facility] rheumatology this past May, apparently MRI was ordered and did not have it done and did not schedule f/u. But now that his back is improved post op, his hand, elbow and foot psoriatic arthritis is really bothering him. He stopped the MTX shots due to no help, taking both naproxen and diclofenac for a few days with more pain and inflammation GEORGE Rosario Attn: Accounting,[address] [place], [address], [place] [facility] 09/20/2024 10:10:44
--- OUTSIDE RECORDS SUMMARY | 2025-01-04 11:29 | XMS_ITS | Encounter Summary ---
Author Organization [facility] Address [address] [place] [address] Care Team Providers Care Client Technical Professional Name Role Phone Calista Fowler MD Unavailable [phone] ParentHiral Unavailable [phone] ParentHiral Primary Care Provider [phone] Encounter Details Date Type Department Care Team (Late st Contact Info) Description 05/08/2017 Abstract [facility] AT [address] [address] Isabell Bailey MA Social History Tobacco Use Types Packs/Day Years Used Date Smoking Tobacco: Never Smokeless Tobacco: Never Alcohol Use Standard Drinks/Week Comments No 0 (1 standard drink = 0.6 oz pur e alcohol) Sex and Gender Information Value Date Recorded Sex Assigned at Not on file Legal Sex Male 2:12 PM CDT Gender Identity Not on file Sexual Orientation Not on file documented as of this encounter Plan of Treatment Not on file documented as of this encounter Procedures Procedure Name Priority Date/Time Associated Diagnosis Comments ESR (OUTSIDE LAB) Routine 07/19/2021 CBC (OUTSIDE LAB) Routine 07/18/2021 C-REACTIVE PROTEIN Routine 07/18/2021 URIC ACID BLOOD Routine 07/02/2021 COMPREHENSIVE METABOLIC PANEL Routine 06/29/2021 CBC (OUTSIDE LAB) Routine 04/18/2017 BASIC METABOLIC PANEL Routine 04/18/2017 documented in this encounter Results * ESR (OUTSIDE LAB) (07/19/2021) Pathologist [facility] SED RATE 94 07/19/2021 us Doc [facility] Abstract LAB-OUTSIDE/ABSTRACTED Final Result * CBC (OUTSIDE LAB) (07/18/2021) Pathologist [facility] WBC 10.8 HGB 14.6 HCT 44.2 PLT 195 07/18/2021 us Doc [facility] Abstract LAB-OUTSIDE/ABSTRACTED Final Result * C-REACTIVE PROTEIN (07/18/2021) Pathologist [facility] CRP 28.5 07/18/2021 us Doc [facility] Abstract LABORATORY Final Result * URIC ACID BLOOD (07/02/2021) Pathologist [facility] URIC ACID 6.4 07/02/2021 us Doc [facility] Abstract LABORATORY Final Result * COMPREHENSIVE METABOLIC PANEL (06/29/2021) Pathologist [facility] SODIUM S/P/B 138 POTASSIUM S/P/B 4.4 CO2 24 CHLORIDE S/P/B 103 GLUCOSE 85 mg/dL CALCIUM S/P/B 8.8 BUN 11 CREATININE S/P/B 1.19 0.7 - 1.3 EGFR AFR. AMER. 78 <=90 EGFR NON-AFR. AMER. 67 <=90 ALKALINE PHOSPHATASE S/P/B 55 ALT 11 AST 17 BILIRUBIN TOTAL S/P/B 0.4 ALBUMIN S/P/B 3.8 3.5 - 5.0 TOTAL PROTEIN S/P/B 7.6 GLOBULIN 3.8 06/29/2021 us Doc [facility] Abstract LABORATORY Final Result * (ABNORMAL) BASIC METABOLIC PANEL (04/18/2017) SODIUM S/P/B 137 POTASSIUM S/P/B 3.4 CO2 20 CHLORIDE S/P/B 100 GLUCOSE 107 BUN 21 CREATININE S/P/B 1.40(A) 0.7 - 1.3 04/18/2017 us Doc [facility] Abstract LABORATORY Final Result * CBC (OUTSIDE LAB) (04/18/2017) WBC 10.7 HGB 17.5 HCT 47.2 PLT 232 04/18/2017 us Doc [facility] Abstract LAB-OUTSIDE/ABSTRACTED Final Result documented in this encounter Visit Diagnoses Not on filedocumented in this encounter Care Teams Client Technical Professional Relationship Specialty Start Date End Date Hiral Rivas PA [address] [place] [address] PCP - General FAMILY PRACTICE 09/24/21 Calista Fowler MD [facility]. [address] [place] [address] [place] [employer] CARDIOVASCULAR DISEASE 03/24/17 Hiral Rivas PA [address] [place] [address] FAMILY PRACTICE 09/28/21 documented as of this encounter
--- OUTSIDE RECORDS SUMMARY | 2025-01-04 11:29 | XMS_ITS | Continuity of Care Document ---
Author Organization [facility] Address [address] [place] [address] Phone Care Team Providers Care Waiter/Waitress Room Service Name Role Phone O Floridalma RAMÍREZ, Sukhjinder Unavailable Unavai lable Allergies, Adverse Reactions, Alerts Substance Reaction Status Criticality No Known Allergies Active No Inform ation Medications Medication Instructions Dosage Effective Dates (start - stop) Status Comments No Drug Therapy Prescribed Procedures Procedure Date OFFICE/OUTPATIENT VISIT EST MRI SPI CANAL&CNTS LMBR C-MATRL 017 X-RAY EXAM OF FEMUR 2/> X-RAY EXAM HIP UNI W PELVIS 2-3 VIEWS Se RADEX KNE COMPL 4/MORE VIEWS RADEX SPI LUMBOSAC MINIMUM 4 VIEWS OFFICE CONSULTATION Advance Directives Directive Yes / No Effective Date File Name No Information Encounters Encounter Description Practice Location Reason(s) For Visit Diagnoses Date Provider Providers Copied on Encounter OFFICE/OUTPAT IENT VISIT EST [facility], [address], [place], [address], tel:[phone] [facility] Femoral neuropathy of left lower extremityPain in left leg Vika Slaughter. [address], [place], [place], [address]. tel:[phone] [facility], [address], [place], [address], tel:[phone] [facility] No Information No Information Referring Provider: Inder Sierra, [address], [place], [address] . tel:[phone] OFFICE CONSULTATION [facility], [address], [place], [address], tel:[phone] [facility] Pain in left legBody mass index (BMI) 31.0-31.9, adult Sep-1 9-201 7 Lo Pablo. [address], [place], [place], [address]. tel:[phone] Family History Family Member Type Diagnosis Age At Onset Mother Problem (finding) Cancer, unknown Father Problem (finding) Myocardial infarction Payers Payer name Insurance type Covered republican ID Authorhesham dalal(s) Blue Access PPO E2 OT [id number] Social History Type Description Quantity Date Captured Comments Alcohol Use Details No Caffeine Use Details Unknown Tobacco Use Status No Information Smoking Status No Information Sex Male Chief Complaint And Reason For Visit No Information Reason For Referral Reason For Referral No Information Plan Of Treatment Date Type Action Status Referral Ordered: referred to Sukhjinder White MD (related to Pain in left leg) ordered Referral Ordered: RADEX KNE COMPL 4/MORE VIEWS LT knee ordered Referral Ordered: MRI SPI CANAL&CNTS LMBR C-MATRL spine, lumbar Appointment date/timeframe: 08/20/2017 ordered Referral Ordered: MUSC TEST DONE W/N TEST COMP (EMG/NCS) LT leg Appointment date/timeframe: 08/20/2017 ordered Referral Ordered: RADEX SPI LUMBOSAC MINIMUM 4 VIEWS spine, lumbar ordered Referral Ordered: X-RAY EXAM HIP UNI W PELVIS 2-3 VIEWS LT hip ordered Referral Ordered: X-RAY EXAM OF FEMUR 2/> LT femur ordered History Of Present Illness Encounter Date Complaint History Of Prese nt Illness No Information Functional Status Date Functional Assessmen t No Information Medications Administered Medication Instructions Dosage Effective Dates (start - stop) Status Comments No Drug Therapy Prescribed Instructions Date Instruction Additional Infor mallory Discussed treatment options Rela delfina to Pain in left leg Weight monitoring Related to Bod y mass index (BMI) 31.0-31.9, adult Assessments Type Assessment Date assessment Femoral neuropathy of left lower extremity assessment Pain in left leg Patient Care Teams Name Effective Dates (start - stop) Status Members No Information
--- OUTSIDE RECORDS SUMMARY | 2025-01-04 11:29 | XMS_ITS | Continuity of Care Document ---
Author Organization [facility] Address [address] [place] [address] Phone Care Team Providers Care Vp Care Management Name Role Phone Duane Mcguire MD Unavailable Unavailable Allergies, Adverse Reactions, Alerts Substance Reaction Status Criticality No Known Allergies Active No Inform ation Medications Medication Instructions Dosage Effective Dates (start - stop) Status Comments cetirizine 10 mg tablet take 1 tablet by oral route every evening 10 MG - Active fexofenadine 180 mg tablet take 1 tablet by oral route every morning 180 MG - Active ranitidine 150 mg tablet take 1 tablet b y oral route 2 times every day - Active diphenhydramine 25 mg tablet take 1 - 2 Tablet by oral route every 4 - 6 hours as needed 25 MG - Active Advance Directives Directive Yes / No Effective Date File Name No Information Encounters Encounter Description Practice Location Reason(s) For Visit Diagnoses Date Provider Providers Copied on Encounter [facility], [address], [place], [address], tel:[phone] [facility] No Information Maynor Zpeeda. [address], [id number], [place]. tel:[phone] [facility], [address], [place], [place], [address], tel:[phone] [facility] Other urticaria Maynor Zepeda. [address], [id number], [place]. tel:[phone] Referring Provider: Talat Collins, [address] [facility] [address], [place], [address]. tel:[phone] Family History Family Member Type Diagnosis Age At Onset No Information Payers Payer name Insurance type Covered democrat ID Arron dalal(s) [place] OUT OF [place] [id number] Social History Type Description Quantity Date Captured Comments Alcohol Use Details Unknown Caffeine Use Details Unknown Tobacco Use Status [...] Therapy Prescribed Instructions Date Instruction Additional Infor mation No Information Assessments Type Assessment Date No Information Patient Care Teams Name Effective Dates (start - stop) Status Members No Information
--- NOTE | 2025-01-04 11:30 | ECG_ITS ---
Test Date: 2025-01-04 10:47:35 Measurements Intervals Sidney Rate: 76 P: 0 IA: 0 QRS: -27 QRSD: 90 T: 50 QT: 392 QTc: 442 Interpretive Statements SINUS RHYTHM BORDERLINE R WAVE PROGRESSION, ANTERIOR LEADS NONSPECIFIC ST & T-WAVE ABNORMALITY- INF/LAT LEADS BASELINE ARTIFACT- I, II, III, AVR, AVL, AVF, V1-V6 BORDERLINE ECG No previous ECG available for comparison Electronically Signed On 01-04-2025 10:54:45 TIN FLOPPER by Deep Astudillo D.O.
== END 2025-01-04 10:12 | disposition home or self-care (01) ==
LOC: ANHSURGERY 10:23
PROVIDERS: Anesthesiology; PCP Physician Assistant; Visit Provider Orthopaedic Surgery
DX: R94.31 Abnormal electrocardiogram [ECG] [EKG] (principal); I10 Essential (primary) hypertension; Z79.899 Other long term (current) drug therapy
CPT/HCPCS: 36415; 80048; 93005

== ENCOUNTER 2025-01-12 00:36 | Day surgery (SDC) | payer MEDICARE, SELFPAY ==
[2024-12-30 14:18] VITALS: BMI 34.4
--- NOTE | 2024-12-30 14:20 | PC.NURSE ---
Report to the Outpatient Waiting Room, entrance under the green pavilion located off [facility], at time _0600_ on date _[id number]_. Planned Procedure Time: _0730_.? Time changes happen often and if your time is changed the preop area will call you the afternoon before. - You and your visitor will be asked to self-screen and do not enter if you have any COVID symptoms. Please call surgeon if you need to reschedule. - A mask is optional within the hospital at this time. Patients may have clear liquids (water, carbonated beverages, clear teas, apple juice) until 3 hours prior to surgery with a maximum of 20 ounces. - No food from midnight until time of surgery and no smoking, or chewing tobacco (or any form of nicotine). No chewing gum, candy or mints. Take only the following medications with a SIP of water on the morning of surgery: ___None DO NOT STOP ANY OF YOUR OTHER PRESCRIPTION MEDICATIONS PRIOR TO SURGERY EXCEPT THE FOLLOWING Hold all vitamins and supplements for 3 days per anesthesiologist. Medications to discontinue per physician ___No diclofenac, Ibuprofen or naproxen 5 days before surgery. Date to take last [id number]___[id number] Please no make-up, nail south korean, hairspray, perfume, deodorant, or body powder the day of surgery.? No jewelry (including any body piercings) or valuables the day of surgery, leave them at home.? Please take a shower or bath the night before, or the morning of, surgery with an antibacterial soap.? Wear comfortable, loose fitting clothing.? - Jewelry must be removed prior to entering the operating room.? Rings and piercings that are not removed may be cut off. - The hospital will not accept responsibility for valuables.? - Please leave all valuables, including medications, at home the day of surgery. If you are going home after surgery, a licensed driver retraining instructor must drive you home.? - NO public transportation without another adult if you receive anesthesia. - We recommend that an adult stay with you for 24 hours following discharge. - We also recommend that you do not drive, make important decision, drink alcoholic beverages, or take any drugs that were not prescribed by your health care provider for at least 24 hours after your discharge time. Follow any additional instructions given to you from your surgeon. Telephone instructions given to __Mark__and asked if any additional questions and then verbalized understanding. Patient advised to call surgeon office or pre surgery nurse liaison [phone] if any additional questions.
--- NOTE | 2025-01-11 07:49 | PM.IMHP ---
H&P: HPI History of Present Illness Date/Time: 01/11/25 07:49 Chief Complaint: Patient has knee pain right. He has mechanical catching and locking of his knee in of meniscal tear based on the MRI scan. He has not been responsive to conservative treatment like to consider surgery. Review of Systems Musculoskeletal: Musculoskeletal: Reports arthralgias, Reports joint swelling and Reports stiffness [facility] Past Medical History Medical History Arthritis Hypertension Surgical History Surgical History History of back surgery History of hand surgery History of shoulder surgery History of surgery on wrist Family History Family History Mother Cancer Hypertension Heart disease Father Cancer Hypertension Heart disease Sibling Cancer Heart disease Hypertension Grandparent Cerebrovascular accident Hypertension Heart disease Cancer Social History Social History Smoking status: Never smoker Alcohol intake: never Substance use: never Do You Feel Safe in your Home?: Yes Lack of Transportation: No Lack of Food: Never True Current Housing: I Have Housing Concerned About Future Housing: No Difficulty Paying Gas/Electric Bills: Decline to Answer Difficulty Paying for Meds: Decline to Answer Currently Unemployed: Decline to Answer Education: High School Diploma/GED Difficulty w/ Childcare or Family Care: No Living arrangements: with family Spiritual care concerns: No Meds Home Medications and Allergies Home Medications ?Medication ?Instructions ?Recorded ?Confirmed ?Type acetaminophen 650 mg 650 mg PO Q12H 09/30/24 12/30/24 History tablet,extended release (Tylenol Arthritis Pain) chlorthalidone 25 mg tablet 25 mg PO DAILY 09/30/24 12/30/24 History losartan 50 mg tablet 50 mg PO DAILY 09/30/24 12/30/24 History tadalafil 5 mg tablet 5 mg PO DAILY 09/30/24 12/30/24 History rosuvastatin 40 mg tablet 40 mg PO DAILY 12/30/24 12/30/24 History Allergies Allergy/AdvReac Type Severity Reaction Status Date / Time No Known Allergies Allergy Unknown Unverified 12/30/24 14:00 Exam Narrative: On exam he is tender to palpation over the right knee. He has mechanical catching and locking and a positive Charles's. He walks with an antalgic gait. Neurologically he is grossly intact. Eyes: General: appearance normal, both eyes and all related structures Neck: Neck: supple Resp: Effort & Inspection: normal respiratory effort Cardio: Rate: regular rate Rhythm: regular rhythm Radiology Reports: Comments: Magnetic Resonance Report Signed Patient: Augusto Blanco EXAMINATION: MR knee RT wo con DATE: 10/20/2024 08:21 INDICATION: Other tear of medial meniscus, recurrent injury. TECHNIQUE: Magnetic resonance imaging (MRI) of the right knee was performed without intravenous contrast. COMPARISON: Right knee radiographs 09/30/2024 FINDINGS: Medial compartment: There is a complex tear involving the anterior horn, body, and posterior horn of the medial meniscus. There is shallow partial-thickness cartilage loss of tibial condyle and femoral condyle with mild subchondral edema-like marrow signal intensity. Lateral compartment: The lateral meniscus is normal. There is deep cartilage fissuring of tibial condyle involving the central articular surface with subchondral cyst and subchondral edema-like marrow signal intensity. There is partial-thickness cartilage loss of femoral condyle, deep at the central articular surface. Patellofemoral compartment: Patellar cartilage is normal. There is deep partial-thickness cartilage loss of the central trochlea. Ligaments and tendons: The anterior and posterior cruciate ligaments are normal. There are changes of prior sprains of medial collateral ligament and fibular collateral ligament characterized by thickening and increased signal intensity proximally. There is mild patellar tendinopathy. Fluid: There is a small knee joint effusion. There is trace fluid in a Carpenter's cyst. There is moderate prepatellar and superficial infrapatellar bursitis. IMPRESSION: 1. Moderate chondrosis of lateral and patellofemoral compartments and mild chondrosis of medial compartment. 2. Tear of medial meniscus. 3. Small knee joint effusion. Reviewed, dictated and finalized at location [facility] Hip/Pelvis X-Ray 10/26/24 Knee X-Ray 09/30/24 Knee MRI 10/20/24 Orthopedics Result Report 10/26/24 Assessment and Plan Assessment and plan (1) Acute medial meniscus tear of right knee: Code(s): S83.241A - Other tear of medial meniscus, current injury, right knee, initial encounter Status: Acute Assessment and Plan: Patient has complex tear of the medial meniscus of the right knee. He has the definitive catching and locking and pain with manipulation. Neurologically he is grossly intact. He has not responded well to conservative treatment. Will proceed with arthroscopy partial meniscectomy right knee proceed as indicated. I have discussed this with him risks benefits limitations and alternatives in detail.
[2025-01-12] VITALS (9 sets, daily range): BP systolic 108–142; BP diastolic 68–86; PULSE 64–82; RESP 11–20; TEMP 36.4–37.1; O2SAT 92–98
--- OUTSIDE RECORDS SUMMARY | 2025-01-12 00:39 | XMS_ITS | Referral Summary ---
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
--- OUTSIDE RECORDS SUMMARY | 2025-01-12 00:39 | XMS_ITS | Continuity of Care Document ---
Author Organization [facility] Address [address] [facility] [address] [place] [address] Phone Care Team Providers Care Safety And Occupational Health Manager Name Role Phone Aviles OD, Augusto Unavailable Unavailable Advance Directives Directive Yes / No Effective Date File Name No Information Encounters Encounter Description Practice Location Reason(s) For Visit Diagnoses Date Provider Providers Copied on Encounter [facility], [address], [place], [place], [id number], [place] tel:[phone] [facility] [place] No Information 5-200 1 Aviles OD Augusto. [address] , [address], [place], [address], [place]. tel:[phone] Family History Family Member Type Diagnosis Age At Onset No Information Payers Payer name Insurance type Covered alliance party ID Authoriza tion(s) No Information Social History [...]
--- OUTSIDE RECORDS SUMMARY | 2025-01-12 00:39 | XMS_ITS | Clinical Summary ---
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
--- OUTSIDE RECORDS SUMMARY | 2025-01-12 00:39 | XMS_ITS | Referral Summary ---
Author Organization [facility] Address [address] [place] [address] Care Team Providers Care Cloth Doubling Machine Operator Name Role Phone Parent, Hiral Coffey GEORGE Primary Care Provider [phone] Source Comments [facility],non-owned Affiliates and Associated Physician Practices is amultiple site organization consisting of ambulatory clinics and hospital sitesin [place], [place], [place] and [place]. This disclosure is being madepursuant to the Care Everywhere program and may not contain all information available regarding this patient. Last updated 18.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 Pulse 85 01/14/2023 9:09 AM AIRCRAFT PAINTER APPRENTICE Temperature 36.3 C (97.3 F) 01/14/2023 9:09 AM AIRCRAFT PAINTER APPRENTICE Respiratory Rate - - Oxygen Saturation 99% 01/14/2023 9:09 AM AIRCRAFT PAINTER APPRENTICE Inhaled Oxygen Concentration - - Weight 109 kg (240 lb 6.4 oz) 01/14/2023 9:09 AM AIRCRAFT PAINTER APPRENTICE Height 172.7 cm (5' 8 ) 06/03/2022 [...] COMPREHENSIVE METABOLIC PANEL (02/27/2022 8:35 AM CDT) [facility] Glucose 92 65 - 99 mg/dL [facility] Comment: Fasting reference interval BUN 10 7 - 25 mg/dL [facility] Creatinine 1.21 0.70 - 1.33 mg/dL [facility] Comment: For patients >49 years of age, the reference limit for Creatinine is approximately 13% higher for people identified as -Omani. eGFR by MDRD 66 > OR = [...] 46 U/L [facility] Comment: Test Performed at: [facility] [place] [address] [place] [address] MILLIE WOODY DO,MPH Blood BLOOD SPECIMEN / Unknown 02/27/2022 8:35 AM CDT 02/27/2022 8:36 AM CDT Kenyetta Reaves MD LAB - CHEMISTRY ORDERABLES [facility] [address] [place] [address] from Last 3 Months or Most Recently Relevant to Health Maintenance Care Teams Cloth Doubling Machine Operator Relationship Specialty Start Date End Date Parent, GEORGE Alcaraz [address] [place] [address] PCP - General 08/06/21
--- OUTSIDE RECORDS SUMMARY | 2025-01-12 00:39 | XMS_ITS | Clinical Summary ---
Author Organization [facility] Address [address] [facility] [place] [address] Care Team Providers Care Civil Estimator Name Role Phone Parent, Hiral Coffey GEORGE Primary Care Provider [phone] Source Comments [facility],non-owned Affiliates and Associated Physician Practices is amultiple site organization consisting of ambulatory clinics and hospital sitesin [place], [place], [place] and [place]. This disclosure is being madepursuant to the Care Everywhere program and may not contain all information available regarding this patient. Last updated 18.[facility] Allergies No known active allergies Medications * [...] Comments Blood Pressure 128/80 01/14/2023 9:09 AM SUPERVISOR PASTRY Pulse 85 01/14/2023 9:09 AM SUPERVISOR PASTRY Temperature 36.3 C (97.3 F) 01/14/2023 9:09 AM SUPERVISOR PASTRY Respiratory Rate - - Oxygen Saturation 99% 01/14/2023 9:09 AM SUPERVISOR PASTRY Inhaled Oxygen Concentration - - Weight 109 kg (240 lb 6.4 oz) 01/14/2023 9:09 AM SUPERVISOR PASTRY Height 172.7 cm (5' 8 ) 06/03/2022 [...] approximately 13% higher for people identified as -Swedish. eGFR by MDRD 66 > OR = [...] 46 U/L [facility] Comment: Test Performed at: [facility] [address] [address] MILLIE WOODY DO,MPH Blood BLOOD SPECIMEN / Unknown 02/27/2022 8:35 AM CDT 02/27/2022 8:36 AM CDT Kenyetta Reaves MD LAB - CHEMISTRY ORDERABLES [facility] [address] [place] [address] from Last 3 Months or Most Recently Relevant to Health Maintenance Care Teams Civil Estimator Relationship Specialty Start Date End Date Parent, GEORGE Alcaraz [address] [place] [address] PCP - General 08/06/21
--- OUTSIDE RECORDS SUMMARY | 2025-01-12 00:40 | XMS_ITS | Continuity of Care Document ---
Author Organization [facility] Address [address] [place] [address] Phone Care Team Providers Care General Surgery Physician Assistant Name Role Phone Duane Mcguire MD Unavailable [...] Diagnoses Date Provider Providers Copied on Encounter [facility], [address], [place], [address], tel:[phone] [facility] No Information Maynor Zepeda. [address], [id number], [place]. tel:[phone] [facility], [address], [place], [place], [address], tel:[phone] [facility] Other urticaria Maynor Zepeda. [address], [id number], [place]. tel:[phone] Referring Provider: Talat Collins, [address] [facility] [address] [facility], [place], [address]. tel:[phone] Family History Family Member Type Diagnosis Age At Onset No Information Payers Payer name Insurance type Covered democrat ID Arron dalal(s) BCBS ID OUT OF STATE [id number] Social History Type Description Quantity Date Captured [...]
--- OUTSIDE RECORDS SUMMARY | 2025-01-12 00:40 | XMS_ITS | Data Portability ---
Author Organization [facility] Address [address] [place] [address] Care Team Providers Care Sales Account Executive Name Role Phone MANNIE DRIVER Solar Sales Consultant HIRAL RIVAS Primary Care Provider KENYETTA Casas Certified Physical Therapist Assistant ISSAC LUQUE Neurosurgeon Assessment No assessment recorded. Plan of Treatment Reminders Order Date Submit Date Provider Last Modified By Organization Details Last Modified Time Details Appointments ANY 15 2024 08:30A M GEORGE Rosario Not available Not available Not available Lab lipid panel, serum 2023 [email or web address], [address] , [place], [address], 09/21/2024 04:39:01 CMP, serum or plasma 2023 [email or web address], [address], [place], [address], 09/21/2024 04:39:05 CK (creatine kinase), total, serum 2023 [email or web address], [address] , [place], [address], 09/21/2024 04:39:08 lipid panel, serum 2023 024 [email or web address], [address] , [place], [address], 04/08/2024 02:40:16 PSA, serum or plasma 2023 024 [email or web address], [address], [place], [address], 04/08/2024 02:40:19 urinalysi s, dipstick 2023 024 VIN In-Office Order, Internal Use Only DO Not Attach Compendium DO Not Attach Compendium, Do Not Delete/merge, [id number] 04/06/2024 12:27:28 CBC w/ auto diff 2023 024 [email or web address], [address], [place], [address], 04/08/2024 02:40:18 CMP, serum or plasma 2023 024 [email or web address], [address], [place], [address], 04/08/2024 02:40:18 lipid panel, serum [address] [facility], [address], [place], [address], 08/26/2023 05:38:36 BMP, serum or plasma [address] [facility], [address], [place], [address], 08/26/2023 05:38:37 Referral rheumatol ogist referral - Please contact patient for appt, thanks! 2023 024 [facility] [address] [facility], , [place], [address], 04/13/2024 11:57:21 urologist referral - Please contact patient for appt, thanks! 2023 024 VIN Doss MD, [address], [place], [address], 04/28/2024 14:12:42 gastroent erologist referral 2023 024 nicko Osullivan MD, [address] [place], [address], 04/09/2024 14:25:06 Procedures None recorded. Surgeries None recorded. Imaging None recorded. Medication Orders Paxlovid 300 mg (150 mg x 2)-100 mg tablets in a dose pack 2022 023 [id number], [address], [place], [place], [id number], 04/06/2024 11:09:26 Patient TargetsNo targets recorded. Patient Instructions Encounter Date Encounter Id Patient Instructions Last Modified By Organization Details Last Modified Time 08/25/2023 [id number] A healthy lifestyle: care instructions Not available 08/27/2023 22:27:52 10/20/2023 [id number] Reviewed the following recommendations: -Stay home and [...] [facility], Encounter Date: 04/06/2024 Long Filler Cigar Roller Machine Referral for Screening for malignant neoplasm of colon Referring Physician: [facility], Encounter Date: 04/06/2024 Certified Physical Therapist Assistant Referral for Psoriatic arthritis Please contact patient for appt, thanks! Referring Physician: [facility], Encounter Date: 04/06/2024 Results Created Date Observation Date Name Description Value Unit Range Abnormal Flag Note LastModifiedBy Organization Detail LastModifiedTime 04/08/20 24 04/08/2024 LIPID PANEL , STAND SHERRELL cholesterol, total 215 mg/dL <200 high Not Available [facility] [address] [address], [place], [address], 04/08/2024 02:40:16 04/08/20 24 04/08/2024 LIPID PANEL , STAND SHERRELL HDL cholesterol 47 mg/dL > or = 40 normal Not Available [facility] [address] [place], [address], 04/08/2024 02:40:16 04/08/20 24 04/08/2024 LIPID PANEL , STAND SHERRELL triglyceride s 264 mg/dL <150 high If a non-f astin g speci men was colle cted, consi tashia repea t trigl yceri de testi ng on a fasti ng speci men if clini joe indic ated. Nasim chadwick et al. J. of Clin. Lipid ol. 2015; 9:129 -169. Not Available [place] [address] [facility] [place], [address], 04/08/2024 02:40:16 04/08/20 24 04/08/2024 LIPID PANEL , STAND SHERRELL LDL-choleste rol 127 mg/dL _(darcie c) high Refer ence range : <100 Kelsie able range <100 mg/dL for prima ry preve ntion ; <70 mg/dL for patie nts with CHD or diabe tic patie nts with > or = 2 CHD risk facto rs. LDL-C is now calcu lated using the Isabella n-Hop kins yanyu tory n, which is a valid ated novel metho d trungi tasha cole r accur acy than the Fried frances equat ion in the estim ation of LDL-C . Isabella kapadia SS et al. KAITY. 2013; 310(1 9): 2061- 2068 (http ://ed ucati on.Qu estDi jl tics. com/f aq/FA Q164) Not Available [facility] [address] [address], [place], [address], 04/08/2024 02:40:16 04/08/20 24 04/08/2024 LIPID PANEL , STAND SHERRELL chol/HDLC ratio 4.6 (calc ) <5.0 normal Not Available [facility] [address], [address], 04/08/2024 02:40:16 04/08/20 24 04/08/2024 LIPID PANEL , STAND SHERRELL non HDL cholesterol 168 mg/dL _(darcie c) <130 high For patie nts with diabe jeremy plus 1 major ASCVD risk facto r, treat ing to a non-H DL-C goal of <100 mg/dL (LDL- C of <70 mg/dL ) is consi dered a thera peuti c optio n. Not Available [address], [address], 04/08/2024 02:40:16 04/08/20 24 04/08/2024 COMPR EHENS DANICA METAB OLIC PANEL glucose 97 mg/dL 65-99 normal Fasti ng refer ence inter keon Not Available [place] [address] [place], [address], 04/08/2024 02:40:17 04/08/20 24 04/08/2024 COMPR EHENS DANICA METAB OLIC PANEL urea nitrogen (BUN) 12 mg/dL 7-25 normal Not Available [facility] [address], [address], 04/08/2024 02:40:17 04/08/20 24 04/08/2024 COMPR EHENS DANICA METAB OLIC PANEL creatinine 1.26 mg/dL 0.70-1 .35 normal Not Available [facility] [address], [address], 04/08/2024 02:40:17 04/08/20 24 04/08/2024 COMPR EHENS DANICA METAB OLIC PANEL eGFR 65 mL/mi n/1.7 3m2 > or = 60 normal Not Available [facility] [place] [address] [place], [address], 04/08/2024 02:40:17 04/08/20 24 04/08/2024 COMPR EHENS DANICA METAB OLIC PANEL BUN/creatini ne ratio SEE NOTE: (calc ) 6-22 Not Repor delfina: BUN and Creat inine are withi n refer ence range . Not Available [address], [address], 04/08/2024 02:40:17 04/08/20 24 04/08/2024 COMPR EHENS DANICA METAB OLIC PANEL sodium 138 mmol/ L 135-14 6 normal Not Available [address], [address], 04/08/2024 02:40:17 04/08/20 24 04/08/2024 COMPR EHENS DANICA METAB OLIC PANEL potassium 4.8 mmol/ L 3.5-5. 3 normal Not Available [address], [address], 04/08/2024 02:40:17 04/08/20 24 04/08/2024 COMPR EHENS DANICA METAB OLIC PANEL chloride 99 mmol/ L 98-110 normal Not Available [address], [address], 04/08/2024 02:40:17 04/08/20 24 04/08/2024 COMPR EHENS DANICA METAB OLIC PANEL carbon dioxide 24 mmol/ L 20-32 normal Not Available [address], [address], 04/08/2024 02:40:17 04/08/20 24 04/08/2024 COMPR EHENS DANICA METAB OLIC PANEL calcium 9.4 mg/dL 8.6-10 .3 normal Not Available [address], [address], 04/08/2024 02:40:17 04/08/20 24 04/08/2024 COMPR EHENS DANICA METAB OLIC PANEL protein, total 7.9 g/dL 6.1-8. 1 normal Not Available [address], [address], 04/08/2024 02:40:17 04/08/20 24 04/08/2024 COMPR EHENS DANICA METAB OLIC PANEL albumin 4.5 g/dL 3.6-5. 1 normal Not Available [address], [address], 04/08/2024 02:40:17 04/08/20 24 04/08/2024 COMPR EHENS DANICA METAB OLIC PANEL globulin 3.4 g/dL_ (calc ) 1.9-3. 7 normal Not Available [address], [address], 04/08/2024 02:40:17 04/08/20 24 04/08/2024 COMPR EHENS DANICA METAB OLIC PANEL albumin/glob ulin ratio 1.3 (calc ) 1.0-2. 5 normal Not Available [address], [address], 04/08/2024 02:40:17 04/08/20 24 04/08/2024 COMPR EHENS DANICA METAB OLIC PANEL bilirubin, total 0.6 mg/dL 0.2-1. 2 normal Not Available [address], [address], 04/08/2024 02:40:17 04/08/20 24 04/08/2024 COMPR EHENS DANICA METAB OLIC PANEL alkaline phosphatase 71 U/L 35-144 normal Not Available [facility] [employer] [address], [address], 04/08/2024 02:40:17 04/08/20 24 04/08/2024 COMPR EHENS DANICA METAB OLIC PANEL AST 25 U/L 10-35 normal Not Available [address] [place], [address], 04/08/2024 02:40:17 04/08/20 24 04/08/2024 COMPR EHENS DANICA METAB OLIC PANEL ALT 22 U/L 9-46 normal Not Available [address], [address], 04/08/2024 02:40:17 04/08/20 24 04/08/2024 CBC (INCL UDES DIFF/ PLT) white blood cell count 9.4 thous and/u L 3.8-10 .8 normal Not Available [address], [address], 04/08/2024 02:40:18 04/08/20 24 04/08/2024 CBC (INCL UDES DIFF/ PLT) red blood cell count 5.80 linnette on/uL 4.20-5 .80 normal Not Available [address], [address], 04/08/2024 02:40:18 04/08/20 24 04/08/2024 CBC (INCL UDES DIFF/ PLT) hemoglobin 16.2 g/dL 13.2-1 7.1 normal Not Available [address], [address], 04/08/2024 02:40:18 04/08/20 24 04/08/2024 CBC (INCL UDES DIFF/ PLT) hematocrit 48.1 % 38.5-5 0.0 normal Not Available [address], [address], 04/08/2024 02:40:18 04/08/20 24 04/08/2024 CBC (INCL UDES DIFF/ PLT) MCV 82.9 fL 80.0-1 00.0 normal Not Available [address], [address], 04/08/2024 02:40:18 04/08/20 24 04/08/2024 CBC (INCL UDES DIFF/ PLT) MCH 27.9 pg 27.0-3 3.0 normal Not Available [address], [address], 04/08/2024 02:40:18 04/08/20 24 04/08/2024 CBC (INCL UDES DIFF/ PLT) MCHC 33.7 g/dL 32.0-3 6.0 normal Not Available [address], [address], 04/08/2024 02:40:18 04/08/20 24 04/08/2024 CBC (INCL UDES DIFF/ PLT) RDW 13.6 % 11.0-1 5.0 normal Not Available [address], [address], 04/08/2024 02:40:18 04/08/20 24 04/08/2024 CBC (INCL UDES DIFF/ PLT) platelet count 218 thous and/u L 140-40 0 normal Not Available [address], [address], 04/08/2024 02:40:18 04/08/20 24 04/08/2024 CBC (INCL UDES DIFF/ PLT) MPV 11.3 fL 7.5-12 .5 normal Not Available [address], [address], 04/08/2024 02:40:18 04/08/20 24 04/08/2024 CBC (INCL UDES DIFF/ PLT) absolute neutrophils 5668 cells /uL 1500-7 800 normal Not Available [address], [address], 04/08/2024 02:40:18 04/08/20 24 04/08/2024 CBC (INCL UDES DIFF/ PLT) absolute lymphocytes 2397 cells /uL 850-39 00 normal Not Available [facility] [address], [address], 04/08/2024 02:40:18 04/08/20 24 04/08/2024 CBC (INCL UDES DIFF/ PLT) absolute monocytes 630 cells /uL 200-95 0 normal Not Available [facility] [address], [address], 04/08/2024 02:40:18 04/08/20 24 04/08/2024 CBC (INCL UDES DIFF/ PLT) absolute eosinophils 602 cells /uL 15-500 high Not Available [facility] [address], [address], 04/08/2024 02:40:18 04/08/20 24 04/08/2024 CBC (INCL UDES DIFF/ PLT) absolute basophils 103 cells /uL 0-200 normal Not Available [facility] [address], [address], 04/08/2024 02:40:18 04/08/20 24 04/08/2024 CBC (INCL UDES DIFF/ PLT) neutrophils 60.3 % normal Not Available [facility] [address], [address], 04/08/2024 02:40:18 04/08/20 24 04/08/2024 CBC (INCL UDES DIFF/ PLT) lymphocytes 25.5 % normal Not Available [facility] [address], [address], 04/08/2024 02:40:18 04/08/20 24 04/08/2024 CBC (INCL UDES DIFF/ PLT) monocytes 6.7 % normal Not Available [facility] [address], [address], 04/08/2024 02:40:18 04/08/20 24 04/08/2024 CBC (INCL UDES DIFF/ PLT) eosinophils 6.4 % normal Not Available [facility] [address] [place], [address], 04/08/2024 02:40:18 04/08/20 24 04/08/2024 CBC (INCL UDES DIFF/ PLT) basophils 1.1 % normal Not Available [facility] [place] [address] [place], [address], 04/08/2024 02:40:18 04/08/20 24 04/08/2024 PSA, TOTAL [...] This test was perfo rmed using the e-SENS chemi lumin escen t metho d. Value s obtai roxie from diffe rent assay metho ds canno t be used inter shannon eably . PSA level s, regar dless of value , shoul d not be inter prete d as absol rochelle evide nce of the prese nce or absen ce of disea se. NO COLLE CTION DATE RECEI KIKE. WE HAVE USED THE DATE THE SPECI MEN WAS RECEI KIKE BY THIS LABOR ATORY THE COLLE CTION DATE. IF THIS IS INCOR RECT, PLEAS E CONTA CT CLIEN T SERVI MONI. PHONE NUMBE R: [phone] Not Available [facility] [place] [address] [place], [address], 04/08/2024 02:40:19 08/25/20 23 08/26/2023 LIPID PANEL , STAND SHERRELL cholesterol, total 186 mg/dL <200 normal Not Available [employer] [facility] [facility] [place] [address] [place], [address], 08/26/2023 05:38:36 08/25/20 23 08/26/2023 LIPID PANEL , STAND SHERRELL HDL cholesterol 41 mg/dL > or = 40 normal Not Available [facility] [address] [place], [address], 08/26/2023 05:38:36 08/25/20 23 08/26/2023 LIPID PANEL , STAND SHERRELL triglyceride s 228 mg/dL <150 high If a non-f astin g speci men was colle cted, consi tashia repea t trigl yceri de testi ng on a fasti ng speci men if clini joe indic ated. Nasim chadwick et al. J. of Clin. Lipid ol. 2015; 9:129 -169. Not Available [facility] [address], [address], 08/26/2023 05:38:36 08/25/20 23 08/26/2023 LIPID PANEL , STAND SHERRELL LDL-choleste rol 110 mg/dL _(darcie c) high Refer ence range : <100 Kelsie able range <100 mg/dL for prima ry preve ntion ; <70 mg/dL for patie nts with CHD or diabe tic patie nts with > or = 2 CHD risk facto rs. LDL-C is now calcu lated using the Isabella n-Hop kins calcu latio n, which is a valid ated novel metho d provi ding douglas r accur acy than the Fried frances equat ion in the estim ation of LDL-C . Isabella kapadia SS et al. KAITY. 2013; 310(1 9): 2061- 2068 (http ://ed ucati on.Qu estDi PrePay. com/f aq/FA Q164) Not Available [facility] [address] [place], [address], 08/26/2023 05:38:36 08/25/20 23 08/26/2023 LIPID PANEL , STAND SHERRELL chol/HDLC ratio 4.5 (calc ) <5.0 normal Not Available [facility] [address] [place], [address], 08/26/2023 05:38:36 08/25/20 23 08/26/2023 LIPID PANEL , STAND SHERRELL non HDL cholesterol 145 mg/dL _(darcie c) <130 high For patie nts with diabe jeremy plus 1 major ASCVD risk facto r, treat ing to a non-H DL-C goal of <100 mg/dL (LDL- C of <70 mg/dL ) is consi dered a thera peuti c optio n. Not Available [address] [place], [address], 08/26/2023 05:38:36 08/25/2008/26/2023 BASIC METAB OLIC PANEL glucose 82 mg/dL 65-99 normal Fasti ng refer ence inter keon Not Available [address] [place], [address], 08/26/2023 05:38:37 08/25/2008/26/2023 BASIC METAB OLIC PANEL urea nitrogen (BUN) 15 mg/dL 7-25 normal Not Available [address], [address], 08/26/2023 05:38:37 08/25/2008/26/2023 BASIC METAB OLIC PANEL creatinine 1.38 mg/dL 0.70-1 .30 high Not Available [facility] [place] [address] [place], [address], 08/26/2023 05:38:37 08/25/2008/26/2023 BASIC METAB OLIC PANEL eGFR 59 mL/mi n/1.7 3m2 > or = 60 low Not Available [facility] [address], [address], 08/26/2023 05:38:37 08/25/20 23 08/26/2023 BASIC METAB OLIC PANEL BUN/creatini ne ratio 11 (calc ) 6-22 normal Not Available [facility] [address], [address], 08/26/2023 05:38:37 08/25/2008/26/2023 BASIC METAB OLIC PANEL sodium 134 mmol/ L 135-14 6 low Not Available [address], [address], 08/26/2023 05:38:37 08/25/2008/26/2023 BASIC METAB OLIC PANEL potassium 4.7 mmol/ L 3.5-5. 3 normal Not Available [address], [address], 08/26/2023 05:38:37 08/25/2008/26/2023 BASIC METAB OLIC PANEL chloride 98 mmol/ L 98-110 normal Not Available [address], [address], 08/26/2023 05:38:37 08/25/2008/26/2023 BASIC METAB OLIC PANEL carbon dioxide 26 mmol/ L 20-32 normal Not Available [address], [address], 08/26/2023 05:38:37 08/25/20 23 08/26/2023 BASIC METAB OLIC PANEL calcium 9.4 mg/dL 8.6-10 .3 normal Not Available [address], [address], 08/26/2023 05:38:37 04/07/20 24 04/07/2024 urina lysis , dipst ick Leukocytes Negati ve Not Available In-Office Order Internal Use Only DO Not Attach Compendium DO Not Attach Compendium, Do Not Delete/merge, [id number] 04/06/2024 11:22:27 04/07/20 24 04/07/2024 urina lysis , dipst ick Nitrite negati ve Not Available In-Office Order Internal Use Only DO Not Attach Compendium DO Not Attach Compendium, Do Not Delete/merge, [id number] 04/06/2024 11:22:27 04/07/20 24 04/07/2024 urina lysis [...] 04/07/2024 urina lysis , dipst ick Specific [place] 1.030 Not Available In-Off ice Order Internal [...] Attach Compendium, Do Not Delete/merge, 04/06/2024 11:22:27 06/18/20 24 06/18/2024 LIPID PANEL , STAND SHERRELL cholesterol, total 212 mg/dL <200 high Not Available [address], [address], 06/18/2024 23:14:00 06/18/20 24 06/18/2024 LIPID PANEL , STAND SHERRELL HDL cholesterol 39 mg/dL > or = 40 low Not Available [address], [address], 06/18/2024 23:14:00 06/18/20 24 06/18/2024 LIPID PANEL , STAND SHERRELL triglyceride s 330 mg/dL <150 high If a non-f astin g speci men was colle cted, consi tashia repea t trigl yceri de testi ng on a fasti ng speci men if clini joe indic ated. Nasim chadwick et al. J. of Clin. Lipid ol. 2015; 9:129 -169. Not Available [address], [address], 06/18/2024 23:14:00 06/18/20 24 06/18/2024 LIPID PANEL [...] SS et al. KAITY. 2013; 310(1 9): 206- 2067 (http ://ed ucati on.Qu estDi PrePay. com/f aq/FA Q164) Not Available [employer] [facility] [place] [address] [place], [address], 06/18/2024 23:14:00 06/18/20 24 06/18/2024 LIPID PANEL , STAND SHERRELL chol/HDLC ratio 5.4 (calc ) <5.0 high Not Available [employer] [facility] [place] [address] [place], [address], 06/18/2024 23:14:00 06/18/20 24 06/18/2024 LIPID PANEL , STAND SHERRELL non HDL cholesterol 173 mg/dL _(darcie c) <130 high For patie nts with diabe jeremy plus 1 major ASCVD risk facto r, treat ing to a non-H DL-C goal of <100 mg/dL (LDL- C of <70 mg/dL ) is consi loydd dayne mensah optio n. Not Available [employer] [facility] [address] [place], [address], 06/18/2024 23:14:00 09/20/20 24 09/21/2024 LIPID PANEL , STAND SHERRELL cholesterol, total 114 mg/dL <200 normal Not Available [employer] [facility] [place] [address] [place], [address], 09/21/2024 04:39:01 09/20/20 24 09/21/2024 LIPID PANEL , STAND SHERRELL HDL cholesterol 41 mg/dL > or = 40 normal Not Available [place] [address] [place], [address], 09/21/2024 04:39:01 09/20/2009/21/2024 LIPID PANEL , STAND SHERRELL triglyceride s 135 mg/dL <150 normal Not Available [facility] [place] [address] [place], [address], 09/21/2024 04:39:01 09/20/2009/21/2024 LIPID PANEL , STAND SHERRELL LDL-choleste rol 51 mg/dL _(darcie c) normal Refer ence range : <100 Kelsie able range <100 mg/dL for prima ry preve ntion ; <70 mg/dL for patie nts with CHD or diabe tic patie nts with > or = 2 CHD risk facto rs. LDL-C is now calcu lated using the Isabella kapadia-Hop kins suzan spears n, which is a valid ated novel kunalo d ashia chatterjeete r accur acy than the Fried frances equat ion in the estim ation of LDL-C . Isabella kapadia SS et al. KAITY. 2013; 310(1 9): 2061- 2068 (http ://ed ucati on.Delvin Zhao PrePay. com/f aq/FA Q164) Not Available [facility] [address] [place], [address], 09/21/2024 04:39:01 09/20/2009/21/2024 LIPID PANEL , STAND SHERRELL chol/HDLC ratio 2.8 (calc ) <5.0 normal Not Available [facility] [address] [place], [address], 09/21/2024 04:39:01 09/20/2009/21/2024 LIPID PANEL , STAND SHERRELL non HDL cholesterol 73 mg/dL _(darcie c) <130 normal For patie nts with diabe jeremy plus 1 major ASCVD risk facto r, treat ing to a non-H DL-C goal of <100 mg/dL (LDL- C of <70 mg/dL ) is consi loydd a thera peuti c optio n. Not Available [address], [address], 09/21/2024 04:39:01 09/20/2009/21/2024 COMPR EHENS DANICA METAB OLIC PANEL glucose 96 mg/dL 65-99 normal Fasti ng refer ence inter keon Not Available [place] [address] [place], [address], 09/21/2024 04:39:05 09/20/2009/21/2024 COMPR EHENS DANICA METAB OLIC PANEL urea nitrogen (BUN) 15 mg/dL 7-25 normal Not Available [address], [address], 09/21/2024 04:39:05 09/20/2009/21/2024 COMPR EHENS DANICA METAB OLIC PANEL creatinine 1.23 mg/dL 0.70-1 .35 normal Not Available [address], [address], 09/21/2024 04:39:05 09/20/20 24 09/21/2024 COMPR EHENS DANICA METAB OLIC PANEL eGFR 67 mL/mi n/1.7 3m2 > or = 60 normal Not Available [address], [address], 09/21/2024 04:39:05 09/20/2009/21/2024 COMPR EHENS DANICA METAB OLIC PANEL BUN/creatini ne ratio SEE NOTE: (calc ) 6-22 Not Repor delfina: BUN and Creat inine are withi n refer ence range . Not Available [address], [address], 09/21/2024 04:39:05 09/20/20 24 09/21/2024 COMPR EHENS DANICA METAB OLIC PANEL sodium 135 mmol/ L 135-14 6 normal Not Available [address], [address], 09/21/2024 04:39:05 09/20/2009/21/2024 COMPR EHENS DANICA METAB OLIC PANEL potassium 3.7 mmol/ L 3.5-5. 3 normal Not Available [address], [address], 09/21/2024 04:39:05 09/20/2009/21/2024 COMPR EHENS DANICA METAB OLIC PANEL chloride 95 mmol/ L 98-110 low Not Available [address], [address], 09/21/2024 04:39:05 09/20/2009/21/2024 COMPR EHENS DANICA METAB OLIC PANEL carbon dioxide 28 mmol/ L 20-32 normal Not Available [address], [address], 09/21/2024 04:39:05 09/20/2009/21/2024 COMPR EHENS DANICA METAB OLIC PANEL calcium 9.0 mg/dL 8.6-10 .3 normal Not Available [address], [address], 09/21/2024 04:39:05 09/20/2009/21/2024 COMPR EHENS DANICA METAB OLIC PANEL protein, total 8.4 g/dL 6.1-8. 1 high Not Available [address], [address], 09/21/2024 04:39:05 09/20/2009/21/2024 COMPR EHENS DANICA METAB OLIC PANEL albumin 3.9 g/dL 3.6-5. 1 normal Not Available [address], [address], 09/21/2024 04:39:05 09/20/20 24 09/21/2024 COMPR EHENS DANICA METAB OLIC PANEL globulin 4.5 g/dL_ (calc ) 1.9-3. 7 high Not Available [address], [address], 09/21/2024 04:39:05 09/20/2009/21/2024 COMPR EHENS DANICA METAB OLIC PANEL albumin/glob ulin ratio 0.9 (calc ) 1.0-2. 5 low Not Available [address], [address], 09/21/2024 04:39:05 09/20/2009/21/2024 COMPR EHENS DANICA METAB OLIC PANEL bilirubin, total 0.7 mg/dL 0.2-1. 2 normal Not Available [address], [address], 09/21/2024 04:39:05 09/20/20 24 09/21/2024 COMPR EHENS DANICA METAB OLIC PANEL alkaline phosphatase 63 U/L 35-144 normal Not Available [address], [address], 09/21/2024 04:39:05 09/20/20 24 09/21/2024 COMPR EHENS DANICA METAB OLIC PANEL AST 16 U/L 10-35 normal Not Available [address], [address], 09/21/2024 04:39:05 09/20/2009/21/2024 COMPR EHENS DANICA METAB OLIC PANEL ALT 11 U/L 9-46 normal Not Available [address], [address], 09/21/2024 04:39:05 09/20/20 24 09/21/2024 CREAT INE KINAS E, TOTAL creatine kinase, total 65 U/L 44-196 normal Not Available [facility] [address] [place] [address] [place], [address], 09/21/2024 04:39:08 09/20/20 24 09/21/2024 EXTRA LAVEN TASHIA-T OP TUBE extra lavender-top tube Not Available [facility] [address] [place] [address] [place], [address], 09/21/2024 04:39:09 09/20/20 24 09/21/2024 EXTRA LAVEN [...] to speci men stabi lity. Not Available [facility] [address] [address] [place], [address], 09/21/2024 04:39:09 11/01/20 23 bone densi ty/de xa [facility] [address] [facility] [place] [address] EXAMIN ATION: Bone Densit y Axial ACCESS ION: [id number] EXAM DATE/T OPAL: 023 8:26 AM [...] By: Adán Malik MD, 023 9:04 PM [facility] [address] [facility], [place], [address], 11/07/2023 15:26:28 11/01/20 23 10/31/2023 bone densi ty No observ ation record ed. [facility] [address] [address], [place], [address], 11/07/2023 15:26:29 11/10/20 23 nmpns 1d [facility] [place] [address] Myocar dial Perfus ion Imagin g Pat.Na me: ANA CERVANTES, ROBIN Og Pat.ID : [id number] .Dionicio e: 2022 Refer. : Josesito colin Exam [...] images were proces sed using the standa SPECT techni que. A gated study was [...] 59 % Max BP: 122/82 Max RPP: 90370 O2 sat: 99 % Sympto ms and Compli cation s: Termin ated: Protoc ol comple delfina Sympto ms: Lighth eadedn ess Compli cation s: None Stress ECG Interp : Sinus rhythm 2022 09:42 AM Jose aviles M.D. [email or web address] [facility] [address] [facility], [place], [address], 11/10/2023 11:23:03 10/20/20 24 10/20/2024 MRI, knee, w/o contr ast No observ ation record ed. [email or web address] [facility] [address], [place], [address], 10/20/2024 11:16:46 Result Notes None recorded. Problems Name Problem SNOMED Code Status Onset Date Resolution Date Notes Provider Name and Address Organization Details Recorded Time Psoriati c arthriti s 784969907 Active 2021 GEORGE Rosario Attn: Accounting ,[address] [place], [address] , [facility] 2 09:37:38 Hyperlip idemia 82542026 Active 2022 GEORGE Rosario Attn: Accounting ,[address] [place], [address] , [facility] 3 10:28:59 Penetrat ion of eyeball with nonmagne tic foreign body 15584815 Completed 201208/12/2013 Location : None;Sev erity: Moderate ;Progres s: Stable;A dded By: Willa Harvey;Add to Current Problems : NO Not Available [facility] 7 10:39:32 Acute upper respirat ory infectio n of multiple sites Completed 201310/06/2014 Location : None;Sev erity: Moderate ;Progres s: Stable;A dded By: Willa Harvey;Add to Current Problems : YES Not Available [facility] 10:39:32 Urine finding 853616561 Completed 201309/26/2021 Location : None;Sev erity: Moderate ;Progres s: Stable;A dded By: Willa Harvey;Add to Current Problems : NO GEORGE Rosario Attn: Accounting ,[address] [place], [address] , [facility] [place] 11:13:45 Edema 067742842 Completed 201110/30/2012 Location : None;Sev erity: Moderate ;Progres s: Stable;A dded By: Sarabjit Collins;Add to Current Problems : NO Not Available [facility] 7 10:39:32 Acute conjunct ivitis 03239474 Completed 201208/12/2013 Location : None;Sev erity: Moderate ;Progres s: Stable;A dded By: Sarabjit Collins;Add to Current Problems : NO Not Available [facility] 7 10:39:32 Cellulit is 116324429 Completed 201209/26/2021 Location : None;Sev erity: Moderate ;Progres s: Stable;A dded By: Sarabjit Collins;Add to Current Problems : NO GEORGE Rosario Attn: Accounting ,[address] [place], [address] , [facility] [place] 11:13:36 Nausea and vomiting 62536157 Completed 201208/27/2013 Location : None;Sev erity: Moderate ;Progres s: Stable;A dded By: Sarabjit Collins;Add to Current Problems : NO Not Available [facility] 7 10:39:32 Allergic urticari a 04931567 Completed 201211/12/2013 Location : None;Sev erity: Moderate ;Progres s: Stable;A dded By: Karina, Sarabjit s J.;Add to Current Problems : NO Not Available [facility] 7 10:39:32 Pruritic disorder 101852163 Completed 201302/10/2014 Location : None;Sev erity: Moderate ;Progres s: Stable;A dded By: Karina, Sarabjit s J.;Add to Current Problems : NO Not Available [facility] 7 10:39:32 Dermatop hytosis of the perianal area Completed 201305/27/2014 Location : None;Sev erity: Moderate ;Progres s: Stable;A dded By: Karina, Sarabjit s J.;Add to Current Problems : NO Not Available [facility] 7 10:39:32 Screenin g procedur e Completed 201305/27/2014 Location : None;Sev erity: Moderate ;Progres s: Stable;A dded By: Karina, Sarabjit s J.;Add to Current Problems : NO Not Available [facility] 7 10:39:32 Screenin g for malignan t neoplasm of colon Active 2013 Location : None;Sev erity: Moderate ;Progres s: Stable;A dded By: Karina, Sarabjit s J.;Add to Current Problems : NO Not Available [facility] 7 10:39:32 Angioede ma 99063942 Completed 201309/09/2014 Location : None;Sev erity: Moderate ;Progres s: Stable;A dded By: Karina, Sarabjit s J.;Add to Current Problems : YES Not Available [facility] 7 10:39:33 Internal hordeolu m 057371198 Completed 201309/26/2021 Location : None;Sev erity: Moderate ;Progres s: Stable;A dded By: Karina, Sarabjit s J.;Add to Current Problems : YES GEORGE Rosario Attn: [place], [address] , [place] [facility] 11:13:41 Multiple joint pain 10496538 Active 2014 Location : None;Sev erity: Moderate ;Progres s: Stable;A dded By: Sarabjit Collins;Add to Current Problems : YES Not Available [facility] 7 10:39:33 Viral screenin g Completed 201405/20/2015 Location : None;Sev erity: Moderate ;Progres s: Stable;A dded By: Sarabjit Collins;Add to Current Problems : YES Not Available [facility] 7 10:39:33 Eruption 578578203 Completed 201211/12/2013 Location : None;Sev erity: Moderate ;Progres s: Stable;A dded By: Antonella Foreman;Add to Current Problems : NO Not Available [facility] 7 10:39:33 Edema 186164263 Completed 201302/10/2014 Location : None;Sev erity: Moderate ;Progres s: Stable;A dded By: Antonella Foreman;Add to Current Problems : NO Not Available [facility] 7 10:39:33 Hip pain 46119181 Completed 201509/26/2021 Location : None;Sev erity: Moderate ;Progres s: Stable;A dded By: Antonella Foreman;Add to Current Problems : YES GEORGE Rosario Attn: Accounting ,[address] [place], [address] , [facility] 11:13:38 Eruption 610675683 Completed 201305/27/2014 Location : None;Sev erity: Moderate ;Progres s: Stable;A dded By: Lore Conway;Add to Current Problems : NO Not Available [facility] 7 10:39:33 Headache 26507090 Completed 201309/02/2014 Location : None;Sev erity: Moderate ;Progres s: Stable;A dded By: Denia Cobos i;Dayne dd to Current Problems : YES Not Available [facility] 7 10:39:33 Benign essentia l hyperten maycol 8272414 Active 2012 Location : None;Sev erity: Moderate ;Progres s: Stable;A dded By: Denia Cobos i;Dayne dd to Current Problems : YES Not Available [facility] 10:39:33 Swelling of limb 58816756 Completed 201405/20/2015 Location : None;Sev erity: Moderate ;Progres s: Stable;A dded By: Denia Cobos i;Dayne dd to Current Problems : NO Not Available [facility] 7 10:39:33 Idiopath ic urticari a 13303450 Completed 201110/29/2012 Location : None;Sev erity: Moderate ;Progres s: Stable;A dded By: Marychuy Castrejon;Add to Current Problems : NO Not Available [facility] 7 10:39:33 Problem Notes None recorded. Procedures Surgical History Date Name Laterality Status Provider Name and Address Organization Details Recorded Time Arthroscopic Surgery completed Antonella Waddell [facility] 12/13/2016 13:56:13 Joint Replacement completed Antonella Waddell [facility] 12/13/2016 13:56:17 Imaging Results Imaging Date Name Status LastModified by Organiz [facility] Details LastModified Time 11/01/2023 bone density/dexa completed [address], [address], 11/07/2023 15:26:28 10/31/2023 bone density completed [facility] [address], [address], 11/07/2023 15:26:29 11/10/2023 [email or web address] completed [email or web address] [address], [address], 11/10/2023 11:23:03 10/20/2024 MRI, knee, w/o contrast completed [email or web address] [facility] [address], [place], [address], 10/20/2024 11:16:46 Procedure Notes None recorded. Medical Equipment None Reported. Allergies No known drug allergies Medications Name Sig Start Date Stop Date Status Note LastModified by Organization Details LastModified Time clobetaso l propionat e 0.05 % foam 11/26 completed Not Available Not Available Not Available prednison e 10 mg tabs 11/26 completed [...] as needed for cough 04/05 completed RxNorm: 939417;Dayne buchanan Substitu tion: True Not Available Not Available Not Available prednison e 10 mg tablet TAKE 1 TABLET BY MOUTH TWICE DAILY FOR 10 DAYS 01/04 completed Not Available Not Available Not Available enalapril maleate 10 mg tablet Take 1 tablet(s ) by mouth daily 07/11 completed RxNorm: 740990;A llow Substitu tion: True Not Available Not [...] in each nostril daily 04/05 completed RxNorm: 867032;A llow Substitu tion: True Not Available Not [...] q12h for 10 days 03/16 completed RxNorm: 906178;A llow Substitu tion: True Not Available Not [...] 1 tablet PO QD 07/11 completed RxNorm: 652429;A llow Substitu tion: True Not Available Not Available Not Available metoprolo l succinate ER 25 mg tablet,ex tended release 24 hr Take 1 tablet po daily 02/21 completed RxNorm: 795559;A llow Substitu tion: True Not Available Not [...] to affected area Bid 07/11 completed RxNorm: 543488;A llow Substitu tion: True Not Available Not [...] food x 3 days 12/04 completed RxNorm: 477436;A llow Substitu tion: True Not Available Not [...] Updated DateTime 3 177.8 cm 34.3 kg/m2 394143. 58 g 97.7 [degF] 77 /min 98 % 98 % 123 mm[Hg] 83 mm[Hg] Debra Parker MA [place] [facility] 3 14:05:11 Date Recorded Body height Body mass index (BMI) Body weight Oxygen saturation Oxygen saturation in Arterial blood by Pulse oximetry Heart rate Body temperature Provider Name and Address Organization Details Last Updated DateTime 4 177.8 cm 35.6 kg/m2 752241. 91 g 97 % 97 % 73 /min 97.5 [degF] Michi Sifuentes MA [place] [facility] 4 10:40:41 Date Recorded Systolic blood pressure Diastolic blood pressure Provider Name and Address Organization Details Last Updated DateTime 04/06/2024 136 mm[Hg] 86 mm[Hg] GEORGE Rosario Attn: Accounting,[address] [place], [address], [facility] 04/06/2024 11:19:10 Date Recorded Body height Body mass index (BMI) Body weight Body temperature Heart rate Oxygen saturation Oxygen saturation in Arterial blood by Pulse oximetry Systolic blood pressure Diastolic blood pressure Provider Name and Address Organization Details Last Updated DateTime 4 177.8 cm 33 kg/m2 651836. 65 g 97.4 [degF] 62 /min 97 % 97 % 110 mm[Hg] 74 mm[Hg] Meme Rodriguez MA [facility] 4 09:26:37 Date Recorded Body height Body mass index (BMI) Body weight Oxygen saturation Oxygen saturation in Arterial blood by Pulse oximetry Heart rate Body temperature Systolic blood pressure Diastolic blood pressure Provider Name and Address Organization Details Last Updated DateTime 5 177.8 cm 35.2 kg/m2 887424. 13 g 96 % 96 % 73 /min 97.8 [degF] 122 mm[Hg] 78 mm[Hg] Lupe Alfaro MA [facility] 5 09:34:01 Social History Question Answer Notes LastModified by Organizat ion Details LastModified Time Tobacco Smoking Status Never Smoker GEORGE Rosario Attn: [place], [address], [facility] [place] 11/26/2018 11:26:14 Do You Have An Advance [...] Anxious, Or Unable To Sleep At Night)? [id number] Information not available 01/09/2023 Do You Use [...] dose 02/22/2021 completed GEORGE Rosario Attn: Accounting,[address] [place], [address], [place] [facility] 01/04/2025 10:07:39 COVID-19, mRNA, LNP-S, PF, 30 mcg/0.3 mL dose 03/15/2021 completed GEORGE Rosario Attn: Accounting,[address] [place], [address], [place] [facility] 01/04/2025 10:07:39 COVID-19, mRNA, LNP-S, PF, 30 mcg/0.3 mL dose 11/15/2021 completed GEORGE Rosario Attn: Accounting,[address] [facility], [place], [address], [place] [facility] 01/04/2025 10:07:39 Hep B, adult 01/22/2012 completed GEORGE Shaw Attn: Accounting,[address] [facility], [place], [address], [place] [facility] 01/04/2025 10:07:39 Hep B, adult 03/19/2012 completed GEORGE Shaw Attn: Accounting,[address] [facility], [place], [address], [place] [facility] 01/04/2025 10:07:39 Hep B, adult 10/19/2012 completed GEORGE Shaw Attn: Accounting,[address] [facility], [place], [address], [place] [facility] 01/04/2025 10:07:39 Hep A, adult 01/22/2012 completed GEORGE Shaw Attn: Accounting,[address] [facility], [place], [address], [place] [facility] 01/04/2025 10:07:39 Hep A, adult 10/19/2012 completed GEORGE Shaw Attn: Accounting,[address] [facility], [place], [address], [place] [facility] 01/04/2025 10:07:39 Tdap 10/01/2022 completed Beatriz Proctor [place], [place] [facility] 10/01/2022 11:11:21 Hep A, adult 11/20/2022 completed Jeanette kapadia LPN [place], [place] [facility] 11/20/2022 10:28:05 Hep A, adult 07/09/2023 completed Lupe narayan [place], [place] [facility] 07/09/2023 11:59:16 Tdap 03/18/2011 completed Not Available [facility] 11/27/2016 05:52:57 Past Encounters Encounter ID Performer Location Encounter Start Date Encounter Closed Date Diagnosis/Indication Diagnosis SNOMED-CT Code Diagnosis ICD10 Code Diagnosis Note [id number] GEORGE Rosario [facility] [address] [place] [address] 12/13/2016 13:43:39 12/16/2016 14:08:49 Urticaria 595813771 L50.9 Angioedema 94547887 T78. 3XXA Arthritis 5291731 M19.90 [id number] Jadiel Collins MD [facility] [address] [place] [address] 04/22/2017 14:33:29 04/22/2017 15:54:54 Chest pain 17281723 R07.9 Syncope 358552557 R55 [id number] Jadiel Collins MD [facility] [address] [place] [address] 05/21/2017 10:36:55 05/21/2017 13:08:13 Benign essential hypertension 0102021 I10 Stress 65220082 Z73.3 Hand pain 56303965 M79.6 41 [id number] Jadiel Collins MD [facility] [address] [place] [address] 11/04/2017 16:37:50 11/04/2017 17:27:09 Benign essential hypertension 2145713 I10 Idiopathic urticaria 422 01760 L50.1 [id number] GEORGE Rosario [facility] [address] [place] [address] 03/10/2018 10:08:14 03/11/2018 15:32:39 Lateral epicondylitis 233328021 M77.11 Ice as much as possible. Try to rest right arm as much as possible. Call if no better for PT [id number] Jadiel Collins MD [facility] [address] [place] [address] 05/11/2018 16:23:40 05/12/2018 11:15:09 Benign essential hypertension 9848566 I10 Tenosynovitis of hand 42 6125263 M65.849 Gastritis 6983378 K29.70 [id number] GEORGE Rosario [facility] [address] [place] [address] 11/26/2018 10:09:15 11/27/2018 09:02:19 Acute bronchitis 15485842 J20.9 if no better in the next 3 days will get cxr Otitis media 85697512 H6 6.92 Benign ess ential hypertension 1676672 I10 Screening for malignant neoplasm of prostate 729084131 Z12.5 [id number] GEORGE Rosario [facility] [address] [place] [address] 03/26/2019 15:31:33 03/29/2019 09:07:02 Ganglion/synovial cyst - hand 747037651 M67.442 Pain in thumb 451693856 M79.487 [id number] Silvia Whitlock [facility] [address] [place] [address] 12/27/2019 16:45:02 12/28/2019 10:22:48 Benign essential hypertension 4607649 I10 Gout 99683915 M10.9 Family his tory of diabetes mellitus 657675933 Z83.3 Pain in right foot 72998 52987 63229 M79.671 Pain in left foot 792492 9111 63131 M79.672 Pain of le ft ankle joint 5653964400 9533989 M25.572 Primary er ectile dysfunction 658927052 N52.9 [id number] LISANDRA Olson [address] [place] [address] 06/05/2020 12:37:51 06/06/2020 11:17:03 Suspected COVID-19 047984295 Z03.818 D/w pt the current pandemic of COVID-19 and call for social isolation in order to blunt the curve and minimize risk and spread. Encouraged patient and family to take restrictio ns seriously. They have verbalized understand ing of such. Viral syndrome 914700269 B34.9 [id number] LISANDRA PAREDES [address] [place] [address] 10/27/2020 13:15:37 10/30/2020 09:02:05 Suspected COVID-19 288923899 Z03.89 [id number] [facility] [address] [place] [address] 03/16/2021 14:09:01 03/19/2021 10:53:19 Dyspnea 416489305 R06.00 Chest pain 90853792 R07. 9 all troponins negative, CXR negative, labs good except WBCs. We will try to get him in [facility] due to insurance impending lapse due to loss of job, for repeat stress testing if indicated. Leukocytosis 367192447 D 72.829 Unintentio nal weight loss 135625189 R63.4 since COVID, not eating since lost of taste. Panic attack 799973722 F 41.0 declines medication for prn [id number] JOSELO WallerP-C [facility] [address] [place] [address] 06/29/2021 09:14:25 06/29/2021 13:38:29 Bilateral localized swelling of hands 5830250050 5392993 R22.33 will get results and make further recommenda tions Benign ess ential hypertension 4716940 I10 [id number] GEORGE Rosario [facility] [address] [place] [address] 09/26/2021 10:32:48 09/27/2021 10:23:51 C-reactive protein above reference range 3113578022 07878 R79.82 Erythrocyt e sedimentation rate above reference range 354700295 R70.0 Benign ess ential hypertension 3293980 I10 Degenerati on of lumbar intervertebral disc 04983403 M51.36 10/02 having MRI and discogram. 12/24 will be discussing all of the results and decide which surgery is planned. All workmen's comp. Has had nerve blocks done and other injections . Electrocar diogram abnormal 042980165 R94.31 was supposed to have a Lexiscan 4 years ago and never done, only holter testing done. Pre-surger y evaluation 254642499 Z01.557 [id number] GEORGE Rosario [facility] [address] [place] [address] 10/01/2022 09:34:08 10/02/2022 11:21:14 Adult health examination 182103391 Z00.00 Vitamin D deficiency 347 76099 E55.9 Benign ess ential hypertension 6379472 I10 Psoriatic arthritis [address] Kenyetta Reaves, will copy labs to her. Administra tion of diphtheria, pertussis, and tetanus vaccine 178397507 Z23 Screening for malignant neoplasm of prostate 592133329 Z12.5 Dyslipidemia 809593748 E 78.5 fasting today for lab Obesity 216297231 E66.9 issues with activity due to his back injury. Screening for malignant neoplasm of colon 030162552 Z12.11 2013 timbo, 2 polyps, adenomas, overdue Fatigue 42719296 R53.83 Secondary erectile dysfunction 055601964 N52.39 if all lab ok, I told him to hold his chlorthali done and if helps his ED, he will keep an eye on his BP and if >140/90 will adjust/add BP meds [id number] Jeanette Multani LPN [facility] [address] [place] [address] 11/20/2022 10:04:59 11/20/2022 11:34:13 Active or passive immunization 393524129 Z23 [id number] GEORGE Rosario [facility] [address] [place] [address] 01/09/2023 09:28:24 01/10/2023 13:06:04 Benign essential hypertension 7357354 I10 great control today, no changes Obesity 528051164 E66.9 issues with activity due to his back injury. Still seeing neurosurge ry for this, has not scheduled surgery yet. Hyperlipidemia 33433774 E78.5 do not stop crestor, reviewed his recent lab. He understand s CV benefit, will continue to take Psoriasis 6745503 L40.9 Med Rx by derm works so well in his scalp and pubic area in just 2-3 days, given per Music, will refill here. Requires a hepatitis A vaccination 121572902 Z28.39 not due til April Psoriatic arthritis 1563 00894 L40.50 will fill out form for handicappe d parking placard for as needed use. WAs taking naproxen and diclofenac together, will stop the naproxen. [id number] GEORGE Rosario [facility] [address] [facility] [address] [facility] [place] [address] 07/09/2023 10:12:21 07/10/2023 10:56:13 Benign essential hypertension 1235985 I10 Will stop metoprolol and chlorthali done due to poor control and bradycardi a. Will f/u in 3 months for recheck BP and recheck BMP. Hyperlipidemia 26645113 E78.5 do not stop crestor, reviewed his recent lab. He understand s CV benefit, will continue to take Morbid obesity 412380444 E66.01 Patient with work on healthier whole food diet, routine exercise in attempt to lose weight. Requires a hepatitis A vaccination 488762894 Z28.39 due for second shot now. Psoriatic arthritis 1563 88868 L40.50 now on full disability , taking methotrexa te regularly weekly, just saw rheum at [facility], really doesn't like his bedside manner, will try to get establishe d at [facility]. Erectile dysfunction 860 559534 F52.21 hopefully stopping chlorthali done and metoprolol will help. Seborrheic dermatitis 50 313088 L21.9 Abnormal weight gain 161 451902 R63.5 due to inactivity from his back issues and joint issues, but will make sure no thyroid issues with other autoimmuni ty. [id number] GEORGE Rosario [facility] [address] [facility] [address] [place] [address] 08/25/2023 13:51:04 08/28/2023 10:11:38 Benign essential hypertension 6823379 I10 We stopped metoprolol and chlorthali done due to poor control and bradycardi a and added LETTY 6 weeks ago. MUCH better control today, check BMP today, no changes Hyperlipidemia 17273636 E78.5 increased his statin dose 6 weeks ago, will rech fasting lipid today Obesity 583332904 E66.9 issues with activity due to his back injury. Still seeing neurosurge ry for this, has not scheduled surgery yet. But aiming for after mid August [id number] GEORGE Rosario [facility] [address] [facility] [address] [facility] [place] [address] 10/20/2023 14:54:15 10/21/2023 09:39:23 COVID-19 633820289 U07.1 Stay very hydrated. Monitor for red flag symptoms like SOB, pleuritic CP, swelling or extreme weakness. Continue Mucinex DM and tylenol as needed for Headaches or fever. Hold statin for the duration of Paxlovid RX. Contagion reviewed, 5 days isolation and then 5 additional day of public masking as long as no fevers and feeling 80% improved. Immodium for his diarrhea [id number] GEORGE Rosario [facility] [address] [facility] [address] [facility] [place] [address] 04/06/2024 09:55:47 04/12/2024 17:06:29 Benign essential hypertension 5624876 I10 fasting today, so will get annual labs. Good at home <130/80s Screening for malignant neoplasm of colon 287192463 Z12.11 2013 timbo, 2 polyps, adenomas, overdue for repeat. Will refer to GI Hemospermia 41093009 R36 .1 with urinary urgency and ED, will refer to urology. Screening for malignant neoplasm of prostate 610016175 Z12.5 Hyperlipidemia 68706794 E78.5 continue statin therapy. Will rech today, fasting Psoriatic arthritis 1563 74122 L40.50 Last saw provider at [facility], no meds at the moment, will put in referral for future to get re-establi shed. Continues with chronic joint pain and stiffness. [id number] GEORGE Rosario [facility] [address] [facility] [address] [facility] [place] [address] 09/20/2024 09:07:31 09/20/2024 14:07:17 Benign essential hypertension 5836684 I10 great control today, no changes. Down 18 pounds in 5 months. Hyperlipidemia 25194425 E78.5 We increased his crestor to 40 last visit, was not at goal, Will rech today, fasting. Psoriatic arthritis 1563 67495 L40.50 saw [facility] provider in May, apparently they wanted [...] their contact info for him to call. [id number] GEORGE Rosario [facility] [address] [facility] [place] [address] 01/04/2025 09:21:15 01/06/2025 12:05:51 Osteoarthritis of knee 130118725 M17.[address] Mauri Howard, right meniscecto my and arthroscop y. I called his office, and they said that they did NOT need a surgical clearance from our office, but will send form. He is going to [place] after this for lab/EKG ordered by anesthesia department . I will fill out form for clearance pending normal lab and EKG if needed. Health Concerns Section Related Observation LastModified by Organization Detai ls LastModified Time None Recorded Concern Status LastModified by Organization Details LastModified Time None Recorded Advance Directives Directive Y: Payers Encounter Date Sequence Insurance Name Policy Number Policy Vu Covered Member ID Vu Member ID Guarantor Name 08/25/2023 1 [place] [id number] Gladys Blanco [id number] Robin Blanco 10/20/2023 1 [place] [id number] Gladys Blanco [id number] Robin Blanco 04/06/2024 1 [facility] (MEDICARE REPLACEMENT/A DVANTAGE - PPO) [id number] Robin Blanco [id number] Robin Blanco 09/20/2024 1 [facility] (MEDICARE REPLACEMENT/A DVANTAGE - PPO) [id number] Robin Blanco [id number] Robin Blanco 01/04/2025 1 [facility] (MEDICARE REPLACEMENT/A DVANTAGE - PPO) [id number] Robin Blanco [id number] Robin Blanco Notes Date Note Type Note [...] 63 pulse GEORGE Rosario Attn: Accounting,[address] [place], [address], [facility] - [facility]IF 08/27/2023 22:28:16 3 text/html COVID-19 Symptoms March [...] 10/15/23 postive GEORGE Rosario Attn: Accounting,[address] [place], [address], [facility] - [facility] 10/20/2023 15:31:35 4 text/html Hypertension F/UReported bypatient.Associated [...] for example) GEORGE Rosario Attn: Accounting,[address] [place], [address], [place] 04/12/2024 12:01:21 4 text/html Hypertension F/UReported bypatient.Associated Symptoms:no dizziness; no lightheadedness; no chest pain; no shortness of breath; no palpitations; no calf pain with exertion;edema Lifestyle:limiting/avoiding salt Medications:taking medications as directed; no side effects from medicationNotes:increased his stating to crestor 40mg last visit, lipids were not at goal, due for recheck todayLast went to [facility]ology this past May, apparently MRI [...] and inflammation GEORGE Rosario Attn: Accounting,[address] [facility], [place], [address], [facility] - SIF 09/20/2024 10:10:44 5 text/html Dr. Mauri Howard and [facility].I spoke with Dr. Mauri Howard's office and they did not request clearance, but they think Anesthesia may have, I have no records. They will fax a preop form that they useSees Dr. Rincon cardiology, and he was cleared in 04/14/24 for colonoscopy, and in November 2023 for orthopedic surgery based on 11/15 EKGHaving EKG and lab done at [place] right after this. Last time he had surgery was a year ago with Gornet in his back. No issues with anesthesia then. He will request EKG and lab sent to me. GEORGE Rosario Attn: Accounting,[address] [facility], [place], [address], [place] 01/05/2025 15:33:38
--- OUTSIDE RECORDS SUMMARY | 2025-01-12 00:40 | XMS_ITS | Clinical Summary ---
Author Organization [facility] Address [address] [place] [address] Care Team Providers Care Fitness Instructor Name Role Phone Calista Fowler MD Unavailable [phone] ParentHiral Unavailable [phone] Hiral Rivas Primary Care Provider [phone] Allergies No known active allergies Medications vitamin D3, cholecalcifero l, 1.25 MG (20220 UT) capsule Take 50,000 Units by mouth [...] Diagnosed Date Hyperlipidemia 01/08/2023 Psoriasis with arthropathy ([facility]/HCC [facility]/HCC) 05/2022 Snores 05/07/2017 Orthostatic hypotension 05/05/2017 [...] Comments Blood Pressure 118/62 10/28/2023 1:51 PM SENIOR ELECTRICAL DESIGN ENGINEER Pulse 62 10/28/2023 1:51 PM SENIOR ELECTRICAL DESIGN ENGINEER Temperature - - Respiratory Rate - - Oxygen Saturation 98% 10/28/2023 1:51 PM SENIOR ELECTRICAL DESIGN ENGINEER Inhaled Oxygen Concentration - - Weight 107.5 kg (237 lb) 10/28/2023 1:51 PM SENIOR ELECTRICAL DESIGN ENGINEER Height 177.8 cm (5' 10 ) 10/28/2023 1:51 PM SENIOR ELECTRICAL DESIGN ENGINEER Body Mass Index 34.01 10/28/2023 1:51 PM SENIOR ELECTRICAL DESIGN ENGINEER Plan of Treatment Health Maintenance Due Date Last Done Comments Colorectal Cancer Screening Colonoscopy (10 Years) 1963 Annual Physical 1966 Hepatitis C 1981 Zoster Vaccines (1 of 2) 2013 COVID-19 Vaccine ( - 2023-2 5 season) 2024 11/15/2021, 03/15/2021, 02/22/2021 Influenza Adult (#1) 2024 DTaP, [...] complete this topic Insurance HAIDER OLSEN MEDICARE [facility] Advance Directives Documents on File Type Date Recorded 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 [address] [place] [address] [place] [employer] CARDIOVASCULAR DISEASE 03/24/17 ParentHiral PA [address] [place] [address] FAMILY [facility] 09/28/21
--- OUTSIDE RECORDS SUMMARY | 2025-01-12 00:40 | XMS_ITS | Continuity of Care Document ---
Author Organization [facility] Address [address] [place] [address] Phone Care Team Providers Care Manager Product Support Name Role Phone O Floridalma RAMÍREZ, Sukhjinder [...] OFFICE/OUTPAT IENT VISIT EST [facility], [address], [place], [address], tel:[phone] [facility] Femoral neuropathy of left lower extremityPain in left leg Vika Slaughter. [address], [place], [place], [address]. tel:[phone] [facility], [address], [place], [address], tel:[phone] [facility] No Information No Information Referring Provider: Inder Sierra, [address], [place], [address] . tel:[phone] OFFICE CONSULTATION [facility], [address], [place], [address], tel:[phone] [facility] Pain in left legBody mass index (BMI) 31.0-31.9, adult Sep-1 9-201 7 Lo Pablo. [address], [place], [place], [address]. tel:[phone] Family History Family Member Type Diagnosis Age At Onset Mother Problem (finding) Cancer, unknown Father Problem (finding) Myocardial infarction Payers Payer name Insurance type Covered green party ID Authorhesham dalal(s) Blue Access PPO E2 OT [id number] Social History Type Description Quantity Date Captured [...]
--- OUTSIDE RECORDS SUMMARY | 2025-01-12 00:40 | XMS_ITS | Patient Health Summary ---
Author Organization [facility] Address [address] [place] [address] Care Team Providers Care Audio Video Repairer Name Role Phone Parent, Hiral Coffey GEORGE Primary Care Provider [phone] Note from [facility],non-owned Affiliates and Associated Physician Practices is amultiple site organization consisting of ambulatory clinics and hospital sitesin [place], [place], [place] and [place]. This disclosure is being madepursuant to the Care Everywhere program and may not contain all information available regarding this patient. Last updated 18.[facility] Allergies No known active allergies Medications [...] DAY * [employer] ([employer] NEEDLE COLLECTION/DISPOSAL) MISC(Started 06/03/2022) Use 1 Each every 7 days [...] Comments Blood Pressure 128/80 01/14/2023 9:09 AM INSIDE SALES PROFESSIONAL Pulse 85 01/14/2023 9:09 AM INSIDE SALES PROFESSIONAL Temperature 36.3 C (97.3 F) 01/14/2023 9:09 AM INSIDE SALES PROFESSIONAL Respiratory Rate - - Oxygen Saturation 99% 01/14/2023 9:09 AM INSIDE SALES PROFESSIONAL Inhaled Oxygen Concentration - - Weight 109 kg (240 lb 6.4 oz) 01/14/2023 9:09 AM INSIDE SALES PROFESSIONAL Height 172.7 cm (5' 8 ) 06/03/2022 [...] YELLOW [facility] Appearance CLEAR CLEAR [facility] Specific Bandana UA 1.016 1.001 - 1.035 [facility] pH [...] SEEN /LPF [facility] Comment: Test Performed at: [facility] [address] [place] [address] MILLIE WOODY DO,MPH Urine URINE SPECIMEN OBTAINED BY CLEAN CATCH PROCEDURE / Unknown 02/27/2022 8:35 AM CDT 02/27/2022 8:36 AM CDT Kenyetta Reaves MD LAB - URINALYSI S ORDERABLES [facility] [address] [place] [address] * (ABNORMAL) C-REACTIVE PROTEIN (02/27/2022 8:35 AM CDT) Only the most recent of2 resultswithin the time period is included. Pathologist [facility] C-Reactive Protein 8.2(H) <8.0 mg/L [facility] Comment: Test Performed at: [facility] [address] [facility] [place] [address] MILLIE WOODY DO,MPH Blood BLOOD SPECIMEN / Unknown 02/27/2022 8:35 AM CDT 02/27/2022 8:36 AM CDT Kenyetta Reaves MD LAB - CHEMISTRY ORDERABLES Performing Organization Address [facility] de Phone Number [facility] [address] [place] [address] * HLA TYPING B27 (02/27/2022 8:35 AM CDT) Pathologist [facility] HLA-B27 Antigen NEGATIVE NEGATIVE [facility] Comment: Test Performed at: [facility] [address] [address] PEDRO BROWN MD Blood BLOOD SPECIMEN / Unknown 02/27/2022 8:35 AM CDT 02/27/2022 8:36 AM CDT Kenyetta Reaves MD LAB - CHEMISTRY ORDERABLES Performing Organization Address [facility] de Phone Number [facility] [address] [place] [address] * (ABNORMAL) ERYTHROCYTE SEDIMENTATION RATE (02/27/2022 8:35 AM CDT) Pathologist [facility] Erythrocyte Sedimentation Rate Westergren 29(H) < OR = 20 mm/h [facility] Comment: Test Performed at: [facility] [address] [facility] [place] [address] MILLIE WOODY DO,MPH Blood BLOOD SPECIMEN / Unknown 02/27/2022 8:35 AM CDT 02/27/2022 8:36 AM CDT Kenyetta Reaves MD LAB - HEMATOLOG Y ORDERABLES Performing Organization Address City/[facility] Co de Phone Number [facility] [address] [place] [address] * (ABNORMAL) CBC WITH DIFFERENTIAL (02/27/2022 8:35 [...] 1.1 % [facility] Comment: Test Performed at: [facility] [address] MILLIE WOODY DO,MPH Blasts [facility] nRBC [facility] Comments [facility] Comment: Test Performed at: [facility] [address] [place] [address] MILLIE WOODY DO,MPH Blood BLOOD SPECIMEN / Unknown 02/27/2022 8:35 AM CDT 02/27/2022 8:36 AM CDT Kenyetta Reaves MD LAB - HEMATOLOG Y ORDERABLES Performing Organization Address City/[facility] Co de Phone Number [facility] [address] [place] [address] * (ABNORMAL) COMPREHENSIVE METABOLIC PANEL (02/27/2022 8:35 [...] approximately 13% higher for people identified as -Nepalese. eGFR by MDRD 66 > OR = [...] 46 U/L [facility] Comment: Test Performed at: [facility] [address] [place] [address] MILLIE WOODY DO,MPH Blood BLOOD SPECIMEN / Unknown 02/27/2022 8:35 AM CDT 02/27/2022 8:36 AM CDT Kenyetta Reaves MD LAB - CHEMISTRY ORDERABLES [facility] [address] [place] [address] * IMAGING RADIOLOGY XRAY RESULTS ORDER (12/06/2021) Only the most recent of7 resultswithin the time period is included. Anatomical Region Laterality Modality Other 12/06/2021 Narrative 12/06/2021 Ordered by an unspecified provider. Scanned Document IMAGING * URINALYSIS REFLEX TO MICROSCOPIC NO CULTURE (11/26/2021 8:23 AM INSIDE SALES PROFESSIONAL) Color UA DARK YELLOW YELLOW [facility] Appearance CLEAR CLEAR [facility] Specific Bandana UA 1.023 1.001 - 1.035 [facility] pH UA 5.5 5.0 - 8.0 [facility] Glucose UA NEGATIVE NEGATIVE [facility] Bilirubin UA NEGATIVE NEGATIVE [facility] Ketone UA NEGATIVE NEGATIVE [facility] Blood UA NEGATIVE NEGATIVE [facility] Protein UA NEGATIVE NEGATIVE [facility] Nitrite UA NEGATIVE NEGATIVE [facility] Leukocyte UA NEGATIVE NEGATIVE [facility] Comment: REPORT COMMENT: FASTING:NO Test Performed at: [place] [address] MILLIE WOODY DO,MPH WBC UA [facility] RBC UA [facility] Epithelial Cell UA [facility] Transitional Epithelial Cells [facility] Renal Epithelial Cells [facility] Bacteria UA [facility] Calcium Oxalate Crystals [facility] Triple Phosphate Crystals [facility] Uric Acid Crystals [facility] Amorphous UA [facility] Crystals UA [facility] Hyaline Casts [facility] Granular Casts [facility] Casts UA [facility] Yeast [facility] Comments [facility] Comment: REPORT COMMENT: FASTING:NO Test Performed at: [place] [address] MILLIE WOODY DO,MPH Urine URINE SPECIMEN OBTAINED BY CLEAN CATCH PROCEDURE / Unknown 11/26/2021 8:23 AM INSIDE SALES PROFESSIONAL 11/26/2021 8:24 AM INSIDE SALES PROFESSIONAL Kenyetta Reaves MD LAB - URINALYSI S ORDERABLES [facility] [address] [place] [address] * ALDOLASE (11/26/2021 8:23 AM INSIDE SALES PROFESSIONAL) Aldolase 4.5 < OR = 8.1 U/L [facility] Comment: REPORT COMMENT: FASTING:NO Test Performed at: [facility] [address] [place] [address] MILLIE WOODY DO,MPH Blood BLOOD SPECIMEN / Unknown 11/26/2021 8:23 AM INSIDE SALES PROFESSIONAL 11/26/2021 8:24 AM INSIDE SALES PROFESSIONAL Kenyetta Reaves MD LAB - CHEMISTRY ORDERABLES Performing Organization Address [facility] de Phone Number [address] [address] * CYCLIC CITRULLINATED PEPTIDE(CCP) AB IGG (11/26/2021 8:23 AM INSIDE SALES PROFESSIONAL) [facility] Cyclic Citrullinated Peptide Antibody IgG <16 UNITS [facility] Comment: Reference Range Negative: <20 Weak Positive: 20-39 Moderate Positive: 40-59 Strong Positive: >59 REPORT COMMENT: FASTING:NO Test Performed at: [facility] [place] [address] MILLIE WOODY DO,MPH 11/26/2021 8:23 AM INSIDE SALES PROFESSIONAL 11/26/2021 8:24 AM INSIDE SALES PROFESSIONAL Kenyetta Reaves MD LAB - CHEMISTRY ORDERABLES Performing Organization Address [facility] de Phone Number [facility] [address] [place], [place] [phone] * (ABNORMAL) LDH BLOOD (11/26/2021 8:23 AM INSIDE SALES PROFESSIONAL) [facility] LD-Total 86(L) 120 - 250 U/L [facility] Comment: Test Performed at: [employer] [address] MILLIE WOODY DO,MPH Blood BLOOD SPECIMEN / Unknown 11/26/2021 8:23 AM INSIDE SALES PROFESSIONAL 11/26/2021 8:24 AM INSIDE SALES PROFESSIONAL Kenyetta Reaves MD LAB - CHEMISTRY ORDERABLES Performing Organization Address [facility] de Phone Number [facility] [address] [place] [address] * (ABNORMAL) PROTEIN ELECTROPHORESIS URINE RANDOM PANEL (11/26/2021 8:23 AM INSIDE SALES PROFESSIONAL) [facility] Creatinine Urine 352(H) 20 - 320 mg/dL [facility] Comment: Verified by repeat analysis. Protein/Creatinine Ratio 43 22 - 128 mg/g creat [facility] Protein/Creatinine Ratio 0.043 0.022 - 0.128 mg/mg creat [facility] Protein Random Urine 15 5 - 25 mg/dL [facility] Albumin 100 % [facility] Alpha-1 Globulin 0 % [facility] Ldtgb-1-Ufhpvxms 0 % [facility] Beta-Globulin 0 % [facility] Gamma Globulin 0 % [facility] Abnormal Protein Band [facility] Abnormal Protein Band 2 [facility] Abnormal Protein Band 3 [facility] Interpretation [facility] Comment: Agarose electrophoresis of urine reveals albumin. No abnormal protein is observed. REPORT COMMENT: FASTING:NO Test Performed at: [facility] [address] [place] [address] MILLIE WOODY DO,MPH 11/26/2021 8:23 AM INSIDE SALES PROFESSIONAL 11/26/2021 8:24 AM INSIDE SALES PROFESSIONAL Kenyetta Reaves MD LAB - URINE BRYAN DAVIS ORDERABLES Performing Organization Address [facility] Co de Phone Number [facility] [address] [place] [address] * CK BLOOD (11/26/2021 8:23 AM INSIDE SALES PROFESSIONAL) Pathologist [facility] CK 44 44 - 196 U/L [facility] Comment: Test Performed at: [facility] [address] [facility] [place] [address] MILLIE WOODY DO,MPH Blood BLOOD SPECIMEN / Unknown 11/26/2021 8:23 AM INSIDE SALES PROFESSIONAL 11/26/2021 8:24 AM INSIDE SALES PROFESSIONAL Kenyetta Reaves MD LAB - CHEMISTRY ORDERABLES Performing Organization Address [facility] Co de Phone Number [facility] [address] [place] [address] * (ABNORMAL) PROTEIN ELECTROPHORESIS BLOOD (11/26/2021 8:23 AM INSIDE SALES PROFESSIONAL) Protein Total 8.1 6.1 - 8.1 g/dL [facility] Albumin 3.8 3.8 - 4.8 g/dL [facility] Alpha-1 Globulin 0.3 0.2 - 0.3 g/dL [facility] Wswjw-5-Hqqodbof 1.0(H) 0.5 - 0.9 g/dL [facility] Beta-1 Globulin g/dL 0.5 0.4 - 0.6 g/dL [facility] Beta-2 Globulin 0.7(H) 0.2 - 0.5 g/dL [facility] Gamma Globulin 1.8(H) 0.8 - 1.7 g/dL [facility] Abnormal Protein Band [facility] Abnormal Protein Band 2 [facility] Abnormal Protein Band 3 [facility] Interpretation [facility] Comment: Polyclonal hypergammaglobulinemia is suggestive of a chronic inflammatory response. Test Performed at: [facility] [address] [address] MILLIE WOODY DO,MPH Blood BLOOD SPECIMEN / Unknown 11/26/2021 8:23 AM INSIDE SALES PROFESSIONAL 11/26/2021 8:24 AM INSIDE SALES PROFESSIONAL Kenyetta Reaves MD LAB - CHEMISTRY ORDERABLES Performing Organization Address [facility] [place] [address] * IGM BLOOD (11/26/2021 8:23 AM INSIDE SALES PROFESSIONAL) IgM 221 50 - 300 mg/dL [facility] Comment: Test Performed at: [employer] [address] MILLIE WOODY DO,MPH Blood BLOOD SPECIMEN / Unknown 11/26/2021 8:23 AM INSIDE SALES PROFESSIONAL 11/26/2021 8:24 AM INSIDE SALES PROFESSIONAL Kenyetta Reaves MD LAB - CHEMISTRY ORDERABLES Performing Organization Address [facility] Co de Phone Number [facility] [phone] [place] [address] * (ABNORMAL) IGG BLOOD (11/26/2021 8:23 AM INSIDE SALES PROFESSIONAL) IgG 1672(H) 600 - 1640 mg/dL [facility] Comment: Test Performed at: [employer] [address] MILLIE WOODY DO,MPH Blood BLOOD SPECIMEN / Unknown 11/26/2021 8:23 AM INSIDE SALES PROFESSIONAL 11/26/2021 8:24 AM INSIDE SALES PROFESSIONAL Kenyetta Reaves MD LAB - CHEMISTRY ORDERABLES Performing Organization Address [facility] Co de Phone Number [facility] [address] [place] [address] * (ABNORMAL) IGA BLOOD (11/26/2021 8:23 AM INSIDE SALES PROFESSIONAL) IgA 659(H) 47 - 310 mg/dL [facility] Comment: Test Performed at: [facility] [address] [address] MILLIE WOODY DO,MPH Blood BLOOD SPECIMEN / Unknown 11/26/2021 8:23 AM INSIDE SALES PROFESSIONAL 11/26/2021 8:24 AM INSIDE SALES PROFESSIONAL Kenyetta Reaves MD LAB - CHEMISTRY ORDERABLES [facility] [address] [place] [id number] Care Teams Audio Video Repairer Relationship Specialty Start Date End Date ParentHiral PA [address] [place] [phone] PCP - General 08/06/21
--- OUTSIDE RECORDS SUMMARY | 2025-01-12 00:40 | XMS_ITS | Encounter Summary ---
Author Organization [facility] Address [address] [place] [address] Care Team Providers Care Care Giver Name Role Phone Calista Fowler MD Unavailable [phone] ParentHiral Unavailable [phone] ParentHiral Primary Care Provider [phone] Encounter Details Date Type Department Care Team (Late st Contact Info) Description 05/08/2017 Abstract [facility] AT [address] [address] Isabell Bailey MA Social History Tobacco Use [...] Results * ESR (OUTSIDE LAB) (07/19/2021) Pathologist [facility] SED RATE 94 07/19/2021 us Doc [facility] Abstract LAB-OUTSIDE/ABSTRACTED Final Result * CBC (OUTSIDE LAB) (07/18/2021) Pathologist [facility] WBC 10.8 HGB 14.6 HCT 44.2 PLT 195 07/18/2021 us Doc [facility] Abstract LAB-OUTSIDE/ABSTRACTED Final Result * C-REACTIVE PROTEIN (07/18/2021) Pathologist [facility] CRP 28.5 07/18/2021 us Doc [facility] Abstract LABORATORY Final Result * URIC ACID BLOOD (07/02/2021) Pathologist [facility] URIC ACID 6.4 07/02/2021 us Doc [facility] Abstract LABORATORY Final Result * COMPREHENSIVE METABOLIC PANEL (06/29/2021) Pathologist [facility] SODIUM S/P/B 138 POTASSIUM S/P/B 4.4 CO2 [...] on filedocumented in this encounter Care Teams Care Giver Relationship Specialty Start Date End Date Hiral Rivas PA [address] [place] [address] PCP - General FAMILY PRACTICE 09/24/21 Calista Fowler MD Three [facility]. [address] [place] [address] [place] Sl[employer] CARDIOVASCULAR DISEASE 03/24/17 Hiral Rivas PA [address] [place] [address] FAMILY PRACTICE 09/28/21 documented as of this encounter
[2025-01-12] MEDS: KETOROLAC 15 MG/ML VIAL (*BKC) IV PUSH (06:45)
[2025-01-12] MEDS: ACETAMINOPHEN 500 MG TABLET 1000 MG PO (06:45)
[2025-01-12] MEDS: LACTATED RINGERS 1,000 ML 30 ML IV CONT (06:45)
--- NOTE | 2025-01-12 06:53 | WPDHPUPDATE1 ---
History and Physical Update Update Date/Time: 01/12/25 06:53 History and Physical has been reviewed, including an updated exam of the patient. There are NO changes in the patient's condition. Risks, benefits, and alternatives have been discussed and questions answered. Patient agrees to proceed with procedure.
--- NOTE | 2025-01-12 07:00 | P.PNAN_ITS ---
Anes - Initial Pre Proc Eval Procedure: Operation Date: 01/12/25 07:30 Proposed Procedures p Right Knee Arthroscopy Partial Medial Meniscectomy, Proceed as Indicated - Mauri Howard MD Date/Time: 01/12/25 07:00 Surgeon: Mauri Howard MD Pre Op Diagnosis: Right Medial Meniscal Tear Patient Data Age: 59 Gender: M Height: 1.78 m Weight: 109 kg Allergies Allergy/AdvReac Type Severity Reaction Status Date / Time No Known Allergies Allergy Unknown Unverified 12/30/24 14:00 Home Medications ?Medication ?Instructions ?Recorded ?Confirmed ?Type acetaminophen 650 mg 650 mg PO Q12H 09/30/24 12/30/24 History tablet,extended release (Tylenol Arthritis Pain) chlorthalidone 25 mg tablet 25 mg PO DAILY 09/30/24 12/30/24 History losartan 50 mg tablet 50 mg PO DAILY 09/30/24 12/30/24 History tadalafil 5 mg tablet 5 mg PO DAILY 09/30/24 12/30/24 History rosuvastatin 40 mg tablet 40 mg PO DAILY 12/30/24 12/30/24 History Patient hx anesthesia problems: none Family hx anesthesia problems: none Results Review: All pre-operative results and documents have been reviewed as part of the pre- operative evaluation. [facility] Past Medical History Medical History Hypertension Arthritis Surgical History Surgical History History of shoulder surgery History of hand surgery History of back surgery History of surgery on wrist Family History Family History Mother Cancer Hypertension Heart disease Father Cancer Hypertension Heart disease Sibling Cancer Heart disease Hypertension Grandparent Cerebrovascular accident Hypertension Heart disease Cancer Social History Social History Smoking status: Never smoker Alcohol intake: never Substance use: never Do You Feel Safe in your Home?: Yes Lack of Transportation: No Lack of Food: Never True Current Housing: I Have Housing Concerned About Future Housing: No Difficulty Paying Gas/Electric Bills: Decline to Answer Difficulty Paying for Meds: Decline to Answer Currently Unemployed: Decline to Answer Education: High School Diploma/GED Difficulty w/ Childcare or Family Care: No Living arrangements: with family Spiritual care concerns: No Anes - Eval Final PreProcedure Day of Procedure 01/12/25 07:00 Patient weight: obese Lungs: normal air movement Airway: Mallampati scale class II and special considerations (Upper teeth w multiple chips noted. ) Neurological: alert and oriented Last oral intake: >/= 8 hours ASA classification: II Emergent: no Anesthetic plan: proceed Anesthesia type and monitoring: general LMA and standard monitoring Results Review: All pre-operative results and documents have been reviewed as part of the pre- operative evaluation. HTN, hyperlipidemia. Informed Consent: The patient's anesthetic plan and its attendant risks and benefits were discussed with the patient/family/POA. Questions were solicited and answers provided to the satisfaction of the patient/family/POA.
[2025-01-12] MEDS: ceFAZolin 2 GM/D5W 50 ML 2 GM/50 ML BAG IVPB (07:23)
[2025-01-12] MEDS: LIDO 1%/EPINEPHRINE 1:100,000 50 ML VIAL 20 ML INFILTRATE (07:23)
--- NOTE | 2025-01-12 08:02 | P.OP_ITS ---
Procedure Note - Detailed Date of Procedure 01/12/25 Pre-op Diagnosis Right Medial Meniscal Tear Post-op Diagnosis Same Procedure Performed RIGHT knee arthroscopy with partial meniscectomy Surgeon Mauri Howard MD Anesthesia General Indications Pain, Catching, Locking Description of Procedure Patient brought to operating room # 5. An anesthetic was administered. The knee was sterilely prepped and draped in the usual manner. Standard portals were use d. Superior medial portal was used for the outflow cannula, inferior lateral portal was used for the scope, inferior medial portal was used for the instruments. Arthroscopy was performed, the patellar femoral joint degenerative changes. The medial compartment showed a complex tear. The lateral compartment showed fraying. The ACL was intact. Using baskets and mary the meniscal tear was trimmed back to a stable base so the nothing further could be pulled into the joint. Any loose or delaminated fragments were gently trimmed to a stable base. At this point the instruments were withdrawn, sutures placed and patient left the operating room in satisfactory condition. He had grade 3 changes in medial compartment as well as the patellofemoral joint with close to grade 4 changes in the patellofemoral area. Estimated Blood Loss 20 Drains No Packing No Pathology None sent Complications No immediate complications Condition Stable Disposition PACU [facility] Billing Surgery - Charge Forward: Surgery Billing ([id number]/Partial Menis)
== END 2025-01-12 10:12 | disposition home or self-care (01) ==
PROVIDERS: PCP Physician Assistant; Visit Provider Orthopaedic Surgery
PROC: (CPT 29870; principal; 2025-01-12 07:30)
DX: S83.231A Complex tear of medial meniscus, current injury, right knee, initial encounter (principal); M94.261 Chondromalacia, right knee; M25.461 Effusion, right knee; M17.11 Unilateral primary osteoarthritis, right knee; I10 Essential (primary) hypertension; X58.XXXA Exposure to other specified factors, initial encounter; E66.9 Obesity, unspecified; Z68.34 Body mass index [BMI] 34.0-34.9, adult; Z79.899 Other long term (current) drug therapy; Z98.890 Other specified postprocedural states; Z98.1 Arthrodesis status; Z80.9 Family history of malignant neoplasm, unspecified; Z82.49 Family history of ischemic heart disease and other diseases of the circulatory system
CPT/HCPCS: 29881; A9270; J0690; J1100; J1885; J2003; J2004; J2250; J2405; J2704; J3010; J7120

== ENCOUNTER 2025-02-16 11:44 | Emergency (ER) | payer MEDICARE, SELFPAY ==
--- NOTE | ~2025-02-16 | CT_ITS ---
EXAMINATION: CT cervical spine wo con DATE: 02/16/2025 12:16 INDICATION: Cervical radiculopathy on the right. TECHNIQUE: Computed tomography (CT) of the cervical spine was performed without intravenous contrast. Automated exposure control and iterative reconstruction technique were employed. The dose-length pro duct was 572.71 mGy-cm. COMPARISON: None FINDINGS: Alignment is normal. Vertebral body heights are normal. There is mildly decreased disc heig ht at C4-C5 and moderately decreased disc height at C6-C7. The following disc levels are specifically discussed: C2-C3: There is moderate right and mild left uncovertebral joint osteoarthritis. There is mild right facet joint osteoarthritis. There is mild right neural foraminal stenosis. There is no central canal stenosis. C3-C4: There is mild bilateral uncovertebral joint osteoarthritis. There is mild bilateral facet join t osteoarthritis. There is mild left neural foraminal stenosis. There is mild central canal stenosis. C4-C5: There is mild bilateral uncovertebral joint osteoarthritis. There is no facet joint osteoarthr itis. There is mild bilateral neural foraminal stenosis. There is mild central canal stenosis. C5-C6: There is mild right and moderate left uncovertebral joint osteoarthritis. There is moderate bi lateral facet joint osteoarthritis. There is mild bilateral neural foraminal stenosis. There is mild central canal stenosis. C6-C7: There is mild right and severe left uncovertebral joint osteoarthritis. There is severe bilate ral facet joint osteoarthritis. There is mild right and moderate left neural foraminal stenosis. Ther e is mild central canal stenosis. C7-T1: There is no uncovertebral joint osteoarthritis. There is severe bilateral facet joint osteoart hritis. There is mild bilateral neural foraminal stenosis. There is no central canal stenosis. IMPRESSION: 1. Moderate cervical spondylosis. Reviewed, dictated and finalized at location A.
[2025-02-16 11:51] VITALS: BP 152/96; PULSE 89; RESP 20; TEMP 36.4; O2SAT 100
--- NOTE | 2025-02-16 12:39 | ED_ITS ---
HPI - General Adult General Chief complaint: Extremity Injury, Upper Stated complaint: Right arm pain and numbness x 4 days Time Seen by Provider: 02/16/25 11:56 Source: patient Mode of arrival: ambulatory Limitations: no limitations History of Present Illness HPI narrative: 59-year-old with a history of rheumatoid arthritis here with the complaints of right-sided neck pain radiating into his arm. Patient states that he woke up 2 days ago with the pain in the neck and since yesterday that pain is now radiating into shoulder and into his arm. He denies any weakness. No history of trauma. Related Data Home Medications ?Medication ?Instructions ?Recorded ?Confirmed ?Last Taken ?Type acetaminophen 650 mg 650 mg PO Q12H 09/30/24 01/27/25 Unknown History tablet,extended release (Tylenol Arthritis Pain) chlorthalidone 25 mg tablet 25 mg PO DAILY 09/30/24 01/27/25 Unknown History losartan 50 mg tablet 50 mg PO DAILY 09/30/24 01/27/25 Unknown History tadalafil 5 mg tablet 5 mg PO DAILY 09/30/24 01/27/25 Unknown History rosuvastatin 40 mg tablet 40 mg PO DAILY 12/30/24 01/27/25 Unknown History Allergies Allergy/AdvReac Type Severity Reaction Status Date / Time No Known Allergies Allergy Unknown Verified 02/15/25 14:59 Review of Systems 2 Review of Systems: All systems reviewed & are unremarkable except as noted in HPI and below Constitutional: Constitutional: Reports no additional constitutional complaints Eyes: Eyes: Reports no additional eye complaints ENT: Reports system reviewed and no additional complaints, except as documented Cardiovascular: Cardiovascular: Reports no additional cardiovascular complaint s Respiratory: Respiratory: Reports no additional respiratory complaints Gastrointestinal: Gastrointestinal: Reports no additional gastrointestinal complaints Musculoskeletal: Musculoskeletal: Reports as per HPI Integumentary/Breasts: Skin/Breast: Reports system reviewed and no additional complaints, except as docu Neurologic: Reports system reviewed and no additional complaints, except as documented Endocrine: Endocrine: Reports no additional endocrine complaints REPLACED BY [facility] Past Medical History Medical History Hypertension Arthritis Surgical History Surgical History History of shoulder surgery History of hand surgery History of back surgery History of surgery on wrist Family History Family History Mother Cancer Hypertension Heart disease Father Cancer Hypertension Heart disease Sibling Cancer Heart disease Hypertension Grandparent Cerebrovascular accident Hypertension Heart disease Cancer Social History Social History Smoking status: Never smoker Alcohol intake: never Substance use: never Do You Feel Safe in your Home?: Yes Lack of Transportation: No Lack of Food: Never True Current Housing: I Have Housing Concerned About Future Housing: No Difficulty Paying Gas/Electric Bills: Decline to Answer Difficulty Paying for Meds: Decline to Answer Currently Unemployed: Decline to Answer Education: High School Diploma/GED Difficulty w/ Childcare or Family Care: No Living arrangements: with family Spiritual care concerns: No Exam Narrative: GENERAL: Well-appearing, well-nourished, and in no acute distress. HEAD: Normocephalic, atraumatic. EYES: PERRLA and EOMI. ENT: Nares clear, no rhinorrhea or epistaxis. Mucous membranes moist. NECK: Supple. CHEST: Clear to auscultation. No respiratory distress. HEART: Regular rate and rhythm. No murmur heard. Normal peripheral pulses. EXTREMITIES: Normal range of motion. No edema. SKIN: Warm, dry, no rash. NEURO: No focal deficits. Alert and oriented x3. PSYCH: Normal mood and affect. Course Course Emergency Course: Notified patient about his CT findings. Advised him to take steroids as prescribed, follow-up with his primary doctor for possible physical therapy if symptoms symptoms still persist Vital Signs Vital signs: Vital Signs Temperature 36.4 C L 02/16/25 11:51 Pulse Rate 89 02/16/25 11:51 Respiratory Rate 20 02/16/25 11:51 Blood Pressure 152/96 H 02/16/25 11:51 Pulse Oximetry 100 02/16/25 11:51 Oxygen Delivery Room Air 02/16/25 11:51 Temperature 36.4 C L 02/16/25 11:51 Pulse Rate 89 02/16/25 11:51 Respiratory Rate 20 02/16/25 11:51 Blood Pressure 152/96 H 02/16/25 11:51 Pulse Oximetry 100 02/16/25 11:51 Oxygen Delivery Room Air 02/16/25 11:51 Medical Decision Making Vital Signs Vital Signs: Vital Signs Temperature 36.4 C L 02/16/25 11:51 Pulse Rate 89 02/16/25 11:51 Respiratory Rate 20 02/16/25 11:51 Blood Pressure 152/96 H 02/16/25 11:51 Pulse Oximetry 100 02/16/25 11:51 Oxygen Delivery Room Air 02/16/25 11:51 Temperature 36.4 C L 02/16/25 11:51 Pulse Rate 89 02/16/25 11:51 Respiratory Rate 20 02/16/25 11:51 Blood Pressure 152/96 H 02/16/25 11:51 Pulse Oximetry 100 02/16/25 11:51 Oxygen Delivery Room Air 02/16/25 11:51 Imaging Data Radiologist's impression: ITS Impressions Cervical Spine CT 02/16/25 12:21 IMPRESSION: 1. Moderate cervical spondylosis. Discharge Plan Discharge Clinical Impression: Radicular pain in right arm Patient Disposition: Home, Self-Care Condition: Stable Instructions: Cervical Radiculopathy (ED) Patient Language: Jamaican Prescriptions: New methylprednisolone [Medrol (Héctor)] 4 mg tablets,dose pack See Rx Instructions .ROUTE .COMPLEX Qty: 21 0RF Rx Instructions: for 6 days hydrocodone-acetaminophen 5-325 mg tablet 1 tablet PO Q8H PRN (Reason: pain) Qty: 10 0RF No Action tadalafil 5 mg tablet 5 mg PO DAILY losartan 50 mg tablet 50 mg PO DAILY chlorthalidone 25 mg tablet 25 mg PO DAILY acetaminophen [Tylenol Arthritis Pain] 650 mg tablet extended release 650 mg PO Q12H rosuvastatin 40 mg tablet 40 mg PO DAILY hydrocodone-acetaminophen 5-325 mg tablet 1 tablet PO Q4H PRN (Reason: pain) Qty: 30 0RF Follow-up/Referrals: UNKNOWN,DOCTOR [Primary Care Provider] - Pop Rowley MD [Physician] - Time of Disposition: 12:46
--- OUTSIDE RECORDS SUMMARY | 2025-02-16 13:10 | XMS_ITS | Referral Summary ---
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
--- OUTSIDE RECORDS SUMMARY | 2025-02-16 13:10 | XMS_ITS | Clinical Summary ---
Author Organization [facility] Address [address] [place] [address] Care Team Providers Care Deck Mate Name Role Phone Parent, Hiral Coffey GEORGE Primary Care Provider [phone] Source Comments [facility] [employer]non-owned Affiliates and Associated Physician Practices is amultiple site organization consisting of ambulatory clinics and hospital sitesin [place], [place], [place] and [place]. This disclosure is being madepursuant to the Care Everywhere program and may not contain all information available regarding this patient. Last updated 18.[facility] Allergies No known active allergies Medications * [...] Comments Blood Pressure 128/80 01/14/2023 9:09 AM SHAKER TENDER Pulse 85 01/14/2023 9:09 AM SHAKER TENDER Temperature 36.3 C (97.3 F) 01/14/2023 9:09 AM SHAKER TENDER Respiratory Rate - - Oxygen Saturation 99% 01/14/2023 9:09 AM SHAKER TENDER Inhaled Oxygen Concentration - - Weight 109 kg (240 lb 6.4 oz) 01/14/2023 9:09 AM SHAKER TENDER Height 172.7 cm (5' 8 ) 06/03/2022 [...] SCREENING 11/24/2024 06/03/2022 SCREENING FOR DIABETES 02/27/2025 , 11/26/2021 Respiratory Syncytial Virus (RSV) Vaccine Pt: [...] complete this topic MENINGOCOCCAL (Group B) VACCINE SHARED DECISION-MAKING Aged Out No longer eligible based on patient's age to complete this topic MENINGOCOCCAL GROUPS A/C/Y/W VACCINE Aged Out No longer eligible b ased on patient's age to complete this topic PNEUMOCOCCAL VACCINE Aged Out No long er eligible based on patient's age to complete this topic Procedures Procedure Name Priority Date/Time Associated Diagnosis Comments COMPREHENSIVE METABOLIC PANEL Routine 02/27/2022 8:35 AM CDT Psoriatic arthritis Arthralgia, unspecified joint Therapeutic drug monitoring Osteoarthritis, unspecified osteoarthritis type, unspecified site High risk medications (not anticoagulants) long-term use from Last 3 Months or Most Recently Relevant to Health Maintenance Results * (ABNORMAL) COMPREHENSIVE METABOLIC PANEL (02/27/2022 8:35 AM CDT) [facility] Glucose 92 65 - 99 mg/dL [facility] Comment: Fasting reference interval BUN 10 7 - 25 mg/dL [facility] Creatinine 1.21 0.70 - 1.33 mg/dL [facility] Comment: For patients >49 years of age, the reference limit for Creatinine is approximately 13% higher for people identified as -[place]. eGFR by MDRD 66 > OR = [...] 46 U/L [facility] Comment: Test Performed at: [facility] [id number] [place] [address] MILLIE WOODY DO,MPH Blood BLOOD SPECIMEN / Unknown 02/27/2022 8:35 AM CDT 02/27/2022 8:36 AM CDT Kenyetta Reaves MD LAB - CHEMISTRY ORDERABLES [facility] [address] [place] [address] from Last 3 Months or Most Recently Relevant to Health Maintenance Care Teams Deck Mate Relationship Specialty Start Date End Date Parent, GEORGE Alcaraz [address] [place] [id number] [facility] - General 08/06/21
--- OUTSIDE RECORDS SUMMARY | 2025-02-16 13:10 | XMS_ITS | Clinical Summary ---
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
--- OUTSIDE RECORDS SUMMARY | 2025-02-16 13:10 | XMS_ITS | CONTINUITY OF CARE DOCUMENT ---
Author Name jannette bhatia Address Unknown Organization [facility] Address [address] [place] [address] Phone [phone] Care Team Providers Care Board Certified Arts Therapist Name Role Phone jannette bhatia Unavailable Unavailable INSURANCE PROVIDERS Payer name Policy type / Coverage type [place] red democrat ID [facility] [id number]
--- OUTSIDE RECORDS SUMMARY | 2025-02-16 13:11 | XMS_ITS | Clinical Summary ---
Author Organization [facility] Address [address] [place] [address] Care Team Providers Care Rn Registry Name Role Phone Calista Fowler MD Unavailable [phone] ParentHiral Unavailable [phone] Hiral Rivas Primary Care Provider Allergies No known active allergies Medications vitamin D3, cholecalcifero l, 1.25 MG (79663 UT) capsule Take 50,000 Units by mouth [...] Diagnosed Date Hyperlipidemia 01/08/2023 Psoriasis with arthropathy ([facility]/HCC) 05/2022 Snores 05/07/2017 Orthostatic hypotension 05/05/2017 Swelling of limb 03/21/2015 Overview (10/27/2023): Location: None;Severity: Moderate;Progress: Stable;Added By: Denia August;Add to Current Problems: NO Angioedema 07/11/2014 Overview (10/27/2023): Location: None;Severity: Moderate;Progress: Stable;Added By: Jadiel Collins;Add to Current Problems: YES Edema 01/09/2014 Overview (10/27/2023): Location: None;Severity: Moderate;Progress: Stable;Added By: Antonella Foreman;Add to Current Problems: NO Cellulitis 07/12/2013 Overview (10/27/2023): Location: None;Severity: Moderate;Progress: Stable;Added By: Jdaiel Collins;Add to Current Problems: NO Chest pain [...] Comments Blood Pressure 118/62 10/28/2023 1:51 PM DATA LIBRARIAN Pulse 62 10/28/2023 1:51 PM DATA LIBRARIAN Temperature - - Respiratory Rate - - Oxygen Saturation 98% 10/28/2023 1:51 PM DATA LIBRARIAN Inhaled Oxygen Concentration - - Weight 107.5 kg (237 lb) 10/28/2023 1:51 PM DATA LIBRARIAN Height 177.8 cm (5' 10 ) 10/28/2023 1:51 PM DATA LIBRARIAN Body Mass Index 34.01 10/28/2023 1:51 PM DATA LIBRARIAN Plan of Treatment Health Maintenance Due Date [...] complete this topic Insurance [employer] MEDICARE [facility] Advance Directives Documents on File Type Date Recorded Patient Therapist'S Assistant Expl anation Legal Documents 10/22/2021 COVID 19 VAC CINATION RECORD CARD Care Teams Rn Registry Relationship Specialty Start Date End Date Hiral Rivas PA [address] [place] [address] PCP - General FAMILY PRACTICE 09/24/21 Calista Fowler MD [facility]. [address] [place] [address] Theodore Trainer CARDIOVASCULAR DISEASE 03/24/17 ParentHiral PA [address] [place] [address] FAMILY [facility] 09/28/21
--- OUTSIDE RECORDS SUMMARY | 2025-02-16 13:11 | XMS_ITS | Data Portability ---
Author Organization [facility] Dk [facility] Address [address] [place] [address] Care Team Providers Care Tool Pusher Name Role Phone MANNIE DRIVER Chicken Cleaner HIRAL RIVAS Primary Care Provider KENYETTA Casas Milk Collector ISSAC LUQUE Neurosurgeon Assessment No assessment recorded. Plan of Treatment Reminders Order Date Submit Date Provider Last Modified By Organization Details Last Modified Time Details Appointments ANY 15 2024 08:30A M GEORGE Rosario Not available Not available Not available Lab lipid panel, serum 2023 [facility] [facility], [address] , [place], [address], 09/21/2024 04:39:01 CMP, serum or plasma 2023 [facility] [facility], [address], [place], [address], 09/21/2024 04:39:05 CK (creatine kinase), total, serum 2023 [facility] [place], [address] , [place], [address], 09/21/2024 04:39:08 lipid panel, serum 2023 024 [facility] [place] [facility], [address] , [place], [address], 04/08/2024 02:40:16 PSA, serum or plasma 2023 024 [facility] [place], [address], [place], [address], 04/08/2024 02:40:19 urinalysi s, dipstick 2023 024 VIN In-Office Order, Internal Use Only DO Not Attach Compendium DO Not Attach Compendium, Do Not Delete/merge, [id number] 04/06/2024 12:27:28 CBC w/ auto diff 2023 024 [facility] [place], [address], [place], [address], 04/08/2024 02:40:18 CMP, serum or plasma 2023 024 [facility] [place], [address], [place], [address], 04/08/2024 02:40:18 lipid panel, serum 2022 023 [facility] [place], [address], [place], [address], 08/26/2023 05:38:36 BMP, serum or plasma 2022 023 [facility] [place], [address], [place], [address], 08/26/2023 05:38:37 Referral rheumatol ogist referral - Please contact patient for appt, thanks! 2023 024 [facility] [address], , [place], [address], 04/13/2024 11:57:21 urologist referral - Please contact patient for appt, thanks! 2023 024 VIN Doss MD, [address], [place], [address], 04/28/2024 14:12:42 gastroent erologist referral 2023 024 nicko Osullivan MD, [address] [place], [address], 04/09/2024 14:25:06 Procedures None recorded. Surgeries None recorded. Imaging None recorded. Medication Orders Paxlovid 300 mg (150 mg x 2)-100 mg tablets in a dose pack 2022 023 [id number], [address], [place], [place], [id number], 04/06/2024 11:09:26 Patient TargetsNo targets recorded. Patient Instructions Encounter Date Encounter Id Patient Instructions Last Modified By Organization Details Last Modified Time 08/25/2023 [id number] A healthy lifestyle: care instructions Not available 08/27/2023 22:27:52 10/20/2023 [id number] Reviewed the following recommendations: -Stay home and [...] [facility], Encounter Date: 04/06/2024 Contract Design Agent Referral for Screening for malignant neoplasm of colon Referring Physician: [facility], Encounter Date: 04/06/2024 Milk Collector Referral for Psoriatic arthritis Please contact patient for appt, thanks! Referring Physician: [facility], Encounter Date: 04/06/2024 Results Created Date Observation Date Name Description Value Unit Range Abnormal Flag Note LastModifiedBy Organization Detail LastModifiedTime 04/08/20 24 04/08/2024 LIPID PANEL , STAND SHERRELL cholesterol, total 215 mg/dL <200 high Not Available [facility] [address], [place], [address], 04/08/2024 02:40:16 04/08/20 24 04/08/2024 LIPID PANEL , STAND SHERRELL HDL cholesterol 47 mg/dL > or = 40 normal Not Available [facility] [address] [place], [address], 04/08/2024 02:40:16 04/08/20 24 04/08/2024 LIPID PANEL , STAND SHERRELL triglyceride s 264 mg/dL <150 high If a non-f astin g speci men was colle cted, consi tashia repea t trigl yceri de testi ng on a fasti ng speci men if clini joe indic ated. Nasim chadwick et al. J. of Clin. Lipid ol. 2015; 9:129 -169. Not Available [address] [address] [place], [address], 04/08/2024 02:40:16 04/08/20 24 04/08/2024 LIPID PANEL [...] jl tics. com/f aq/FA Q164) Not Available [facility] [address], [place], [address], 04/08/2024 02:40:16 04/08/20 24 04/08/2024 LIPID PANEL , STAND SHERRELL chol/HDLC ratio 4.6 (calc ) <5.0 normal Not Available [facility] [address], [address], 04/08/2024 02:40:16 04/08/20 24 04/08/2024 LIPID PANEL , STAND SHERRELL non HDL cholesterol 168 mg/dL _(darcie c) <130 high For patie nts with diabe jeremy plus 1 major ASCVD risk facto r, treat ing to a non-H DL-C goal of <100 mg/dL (LDL- C of <70 mg/dL ) is consi dered a thera peuti c optio n. Not Available [address], [address], 04/08/2024 02:40:16 04/08/20 24 04/08/2024 COMPR EHENS DANICA METAB OLIC PANEL glucose 97 mg/dL 65-99 normal Fasti ng refer ence inter keon Not Available [address] [address] [place], [address], 04/08/2024 02:40:17 04/08/20 24 04/08/2024 COMPR EHENS DANICA METAB OLIC PANEL urea nitrogen (BUN) 12 mg/dL 7-25 normal Not Available [facility] [address], [address], 04/08/2024 02:40:17 04/08/20 24 04/08/2024 COMPR EHENS DANICA METAB OLIC PANEL creatinine 1.26 mg/dL 0.70-1 .35 normal Not Available [facility] [address], [address], 04/08/2024 02:40:17 04/08/20 24 04/08/2024 COMPR EHENS DANICA METAB OLIC PANEL eGFR 65 mL/mi n/1.7 3m2 > or = 60 normal Not Available [facility] [address] [address] [place], [address], 04/08/2024 02:40:17 04/08/20 24 04/08/2024 COMPR EHENS DANICA METAB OLIC PANEL BUN/creatini ne ratio SEE NOTE: (calc ) 6-22 Not Repor delfina: BUN and Creat inine are withi n refer ence range . Not Available [address], [address], 04/08/2024 02:40:17 04/08/20 24 04/08/2024 COMPR EHENS DANICA METAB OLIC PANEL sodium 138 mmol/ L 135-14 6 normal Not Available [address], [address], 04/08/2024 02:40:17 04/08/20 24 04/08/2024 COMPR EHENS DANICA METAB OLIC PANEL potassium 4.8 mmol/ L 3.5-5. 3 normal Not Available [address], [address], 04/08/2024 02:40:17 04/08/20 24 04/08/2024 COMPR EHENS DANICA METAB OLIC PANEL chloride 99 mmol/ L 98-110 normal Not Available [address], [address], 04/08/2024 02:40:17 04/08/20 24 04/08/2024 COMPR EHENS DANICA METAB OLIC PANEL carbon dioxide 24 mmol/ L 20-32 normal Not Available [address], [address], 04/08/2024 02:40:17 04/08/20 24 04/08/2024 COMPR EHENS DANICA METAB OLIC PANEL calcium 9.4 mg/dL 8.6-10 .3 normal Not Available [address], [address], 04/08/2024 02:40:17 04/08/20 24 04/08/2024 COMPR EHENS DANICA METAB OLIC PANEL protein, total 7.9 g/dL 6.1-8. 1 normal Not Available [address], [address], 04/08/2024 02:40:17 04/08/20 24 04/08/2024 COMPR EHENS DANICA METAB OLIC PANEL albumin 4.5 g/dL 3.6-5. 1 normal Not Available [address], [address], 04/08/2024 02:40:17 04/08/20 24 04/08/2024 COMPR EHENS DANICA METAB OLIC PANEL globulin 3.4 g/dL_ (calc ) 1.9-3. 7 normal Not Available [address], [address], 04/08/2024 02:40:17 04/08/20 24 04/08/2024 COMPR EHENS DANICA METAB OLIC PANEL albumin/glob ulin ratio 1.3 (calc ) 1.0-2. 5 normal Not Available [address], [address], 04/08/2024 02:40:17 04/08/20 24 04/08/2024 COMPR EHENS DANICA METAB OLIC PANEL bilirubin, total 0.6 mg/dL 0.2-1. 2 normal Not Available [address], [address], 04/08/2024 02:40:17 04/08/20 24 04/08/2024 COMPR EHENS DANICA METAB OLIC PANEL alkaline phosphatase 71 U/L 35-144 normal Not Available [facility] [employer] [address], [address], 04/08/2024 02:40:17 04/08/20 24 04/08/2024 COMPR EHENS DANICA METAB OLIC PANEL AST 25 U/L 10-35 normal Not Available [address] [place], [address], 04/08/2024 02:40:17 04/08/20 24 04/08/2024 COMPR EHENS DANICA METAB OLIC PANEL ALT 22 U/L 9-46 normal Not Available [address], [address], 04/08/2024 02:40:17 04/08/20 24 04/08/2024 CBC (INCL UDES DIFF/ PLT) white blood cell count 9.4 thous and/u L 3.8-10 .8 normal Not Available [address], [address], 04/08/2024 02:40:18 04/08/20 24 04/08/2024 CBC (INCL UDES DIFF/ PLT) red blood cell count 5.80 linnette on/uL 4.20-5 .80 normal Not Available [address], [address], 04/08/2024 02:40:18 04/08/20 24 04/08/2024 CBC (INCL UDES DIFF/ PLT) hemoglobin 16.2 g/dL 13.2-1 7.1 normal Not Available [address], [address], 04/08/2024 02:40:18 04/08/20 24 04/08/2024 CBC (INCL UDES DIFF/ PLT) hematocrit 48.1 % 38.5-5 0.0 normal Not Available [address], [address], 04/08/2024 02:40:18 04/08/20 24 04/08/2024 CBC (INCL UDES DIFF/ PLT) MCV 82.9 fL 80.0-1 00.0 normal Not Available [address], [address], 04/08/2024 02:40:18 04/08/20 24 04/08/2024 CBC (INCL UDES DIFF/ PLT) MCH 27.9 pg 27.0-3 3.0 normal Not Available [address], [address], 04/08/2024 02:40:18 04/08/20 24 04/08/2024 CBC (INCL UDES DIFF/ PLT) MCHC 33.7 g/dL 32.0-3 6.0 normal Not Available [address], [address], 04/08/2024 02:40:18 04/08/20 24 04/08/2024 CBC (INCL UDES DIFF/ PLT) RDW 13.6 % 11.0-1 5.0 normal Not Available [address], [address], 04/08/2024 02:40:18 04/08/20 24 04/08/2024 CBC (INCL UDES DIFF/ PLT) platelet count 218 thous and/u L 140-40 0 normal Not Available [address], [address], 04/08/2024 02:40:18 04/08/20 24 04/08/2024 CBC (INCL UDES DIFF/ PLT) MPV 11.3 fL 7.5-12 .5 normal Not Available [address], [address], 04/08/2024 02:40:18 04/08/20 24 04/08/2024 CBC (INCL UDES DIFF/ PLT) absolute neutrophils 5668 cells /uL 1500-7 800 normal Not Available [address], [address], 04/08/2024 02:40:18 04/08/20 24 04/08/2024 CBC (INCL UDES DIFF/ PLT) absolute lymphocytes 2397 cells /uL 850-39 00 normal Not Available [facility] [address], [address], 04/08/2024 02:40:18 04/08/20 24 04/08/2024 CBC (INCL UDES DIFF/ PLT) absolute monocytes 630 cells /uL 200-95 0 normal Not Available [facility] [address], [address], 04/08/2024 02:40:18 04/08/20 24 04/08/2024 CBC (INCL UDES DIFF/ PLT) absolute eosinophils 602 cells /uL 15-500 high Not Available [facility] [address], [address], 04/08/2024 02:40:18 04/08/20 24 04/08/2024 CBC (INCL UDES DIFF/ PLT) absolute basophils 103 cells /uL 0-200 normal Not Available [facility] [address], [address], 04/08/2024 02:40:18 04/08/20 24 04/08/2024 CBC (INCL UDES DIFF/ PLT) neutrophils 60.3 % normal Not Available [facility] [address], [address], 04/08/2024 02:40:18 04/08/20 24 04/08/2024 CBC (INCL UDES DIFF/ PLT) lymphocytes 25.5 % normal Not Available [facility] [address], [address], 04/08/2024 02:40:18 04/08/20 24 04/08/2024 CBC (INCL UDES DIFF/ PLT) monocytes 6.7 % normal Not Available [facility] [address], [address], 04/08/2024 02:40:18 04/08/20 24 04/08/2024 CBC (INCL UDES DIFF/ PLT) eosinophils 6.4 % normal Not Available [facility] [address] [place], [address], 04/08/2024 02:40:18 04/08/20 24 04/08/2024 CBC (INCL UDES DIFF/ PLT) basophils 1.1 % normal Not Available [facility] [place] [address] [address] [place], [address], 04/08/2024 02:40:18 04/08/20 24 04/08/2024 PSA, TOTAL [...] This test was perfo rmed using the [employer] chemi lumin escen t metho d. Value [...] CLIEN T SERVI MONI. PHONE NUMBE R: 684.6 97.83 78 Not Available [facility] [address] [address] [place], [address], 04/08/2024 02:40:19 08/25/20 23 08/26/2023 LIPID PANEL , STAND SHERRELL cholesterol, total 186 mg/dL <200 normal Not Available [facility] [address] [address] [place], [address], 08/26/2023 05:38:36 08/25/20 23 08/26/2023 LIPID PANEL , STAND SHERRELL HDL cholesterol 41 mg/dL > or = 40 normal Not Available [facility] [address] [place], [address], 08/26/2023 05:38:36 08/25/20 23 08/26/2023 LIPID PANEL , STAND SHERRELL triglyceride s 228 mg/dL <150 high If a non-f astin g speci men was colle cted, consi tashia repea t trigl yceri de testi ng on a fasti ng speci men if clini joe indic ated. Nasim chadwick et al. J. of Clin. Lipid ol. 2015; 9:129 -169. Not Available [facility] [address], [address], 08/26/2023 05:38:36 08/25/20 23 08/26/2023 LIPID PANEL [...] 2061- 2068 (http ://ed ucati on.Qu estDi [employer]. com/f aq/FA Q164) Not Available [facility] [address] [place], [address], 08/26/2023 05:38:36 08/25/20 23 08/26/2023 LIPID PANEL , STAND SHERRELL chol/HDLC ratio 4.5 (calc ) <5.0 normal Not Available [facility] [address] [place], [address], 08/26/2023 05:38:36 08/25/20 23 08/26/2023 LIPID PANEL , STAND SHERRELL non HDL cholesterol 145 mg/dL _(darcie c) <130 high For patie nts with diabe jeremy plus 1 major ASCVD risk facto r, treat ing to a non-H DL-C goal of <100 mg/dL (LDL- C of <70 mg/dL ) is consi dered a thera peuti c optio n. Not Available [address] [place], [address], 08/26/2023 05:38:36 08/25/2008/26/2023 BASIC METAB OLIC PANEL glucose 82 mg/dL 65-99 normal Fasti ng refer ence inter keon Not Available [address] [place] [place], [address], 08/26/2023 05:38:37 08/25/2008/26/2023 BASIC METAB OLIC PANEL urea nitrogen (BUN) 15 mg/dL 7-25 normal Not Available [address], [address], 08/26/2023 05:38:37 08/25/2008/26/2023 BASIC METAB OLIC PANEL creatinine 1.38 mg/dL 0.70-1 .30 high Not Available [facility] [place] [address] [address] [place], [address], 08/26/2023 05:38:37 08/25/2008/26/2023 BASIC METAB OLIC PANEL eGFR 59 mL/mi n/1.7 3m2 > or = 60 low Not Available [facility] [address], [address], 08/26/2023 05:38:37 08/25/20 23 08/26/2023 BASIC METAB OLIC PANEL BUN/creatini ne ratio 11 (calc ) 6-22 normal Not Available [facility] [address], [address], 08/26/2023 05:38:37 08/25/2008/26/2023 BASIC METAB OLIC PANEL sodium 134 mmol/ L 135-14 6 low Not Available [address], [address], 08/26/2023 05:38:37 08/25/2008/26/2023 BASIC METAB OLIC PANEL potassium 4.7 mmol/ L 3.5-5. 3 normal Not Available [address], [address], 08/26/2023 05:38:37 08/25/2008/26/2023 BASIC METAB OLIC PANEL chloride 98 mmol/ L 98-110 normal Not Available [address], [address], 08/26/2023 05:38:37 08/25/2008/26/2023 BASIC METAB OLIC PANEL carbon dioxide 26 mmol/ L 20-32 normal Not Available [address], [address], 08/26/2023 05:38:37 08/25/20 23 08/26/2023 BASIC METAB OLIC PANEL calcium 9.4 mg/dL 8.6-10 .3 normal Not Available [address], [address], 08/26/2023 05:38:37 04/07/20 24 04/07/2024 urina lysis , dipst ick Leukocytes Negati ve Not Available In-Office Order Internal Use Only DO Not Attach Compendium DO Not Attach Compendium, Do Not Delete/merge, [id number] 04/06/2024 11:22:27 04/07/20 24 04/07/2024 urina lysis , dipst ick Nitrite negati ve Not Available In-Office Order Internal Use Only DO Not Attach Compendium DO Not Attach Compendium, Do Not Delete/merge, [id number] 04/06/2024 11:22:27 04/07/20 24 04/07/2024 urina lysis [...] 04/07/2024 urina lysis , dipst ick Specific Willow 1.030 Not Available In-Off ice Order Internal [...] total 212 mg/dL <200 high Not Available [address], [address], 06/18/2024 23:14:00 06/18/20 24 06/18/2024 LIPID PANEL , STAND SHERRELL HDL cholesterol 39 mg/dL > or = 40 low Not Available [address], [address], 06/18/2024 23:14:00 06/18/20 24 06/18/2024 LIPID PANEL , STAND SHERRELL triglyceride s 330 mg/dL <150 high If a non-f astin g speci men was colle cted, consi tashia repea t trigl yceri de testi ng on a fasti ng speci men if clini joe indic ated. Nasim chadwick et al. J. of Clin. Lipid ol. 2015; 9:129 -169. Not Available [address], [address], 06/18/2024 23:14:00 06/18/20 24 06/18/2024 LIPID PANEL [...] 206- 2067 (http ://ed ucati on.Qu estDi [employer]. com/f aq/FA Q164) Not Available [facility] [facility] [address] [address] [place], [address], 06/18/2024 23:14:00 06/18/20 24 06/18/2024 LIPID PANEL , STAND SHERRELL chol/HDLC ratio 5.4 (calc ) <5.0 high Not Available [facility] [address] [address] [place], [address], 06/18/2024 23:14:00 06/18/20 24 06/18/2024 LIPID PANEL , STAND SHERRELL non HDL cholesterol 173 mg/dL _(darcie c) <130 high For patie nts with diabe jeremy plus 1 major ASCVD risk facto r, treat ing to a non-H DL-C goal of <100 mg/dL (LDL- C of <70 mg/dL ) is consi loydd dayne mensah optio n. Not Available [facility] [address] [place], [address], 06/18/2024 23:14:00 09/20/20 24 09/21/2024 LIPID PANEL , STAND SHERRELL cholesterol, total 114 mg/dL <200 normal Not Available [facility] [facility] [address] [address] [place], [address], 09/21/2024 04:39:01 09/20/20 24 09/21/2024 LIPID PANEL , STAND SHERRELL HDL cholesterol 41 mg/dL > or = 40 normal Not Available [address] [address] [place], [address], 09/21/2024 04:39:01 09/20/2009/21/2024 LIPID PANEL , STAND SHERRELL triglyceride s 135 mg/dL <150 normal Not Available [facility] [address] [address] [place], [address], 09/21/2024 04:39:01 09/20/2009/21/2024 LIPID PANEL , STAND [...] 2061- 2068 (http ://ed ucati on.Delvin Zhao [employer]. com/f aq/FA Q164) Not Available [facility] [address] [place], [address], 09/21/2024 04:39:01 09/20/2009/21/2024 LIPID PANEL , STAND SHERRELL chol/HDLC ratio 2.8 (calc ) <5.0 normal Not Available [facility] [address] [place], [address], 09/21/2024 04:39:01 09/20/2009/21/2024 LIPID PANEL , STAND SHERRELL non HDL cholesterol 73 mg/dL _(darcie c) <130 normal For patie nts with diabe jeremy plus 1 major ASCVD risk facto r, treat ing to a non-H DL-C goal of <100 mg/dL (LDL- C of <70 mg/dL ) is consi loydd a thera peuti c optio n. Not Available [address], [address], 09/21/2024 04:39:01 09/20/2009/21/2024 COMPR EHENS DANICA METAB OLIC PANEL glucose 96 mg/dL 65-99 normal Fasti ng refer ence inter keon Not Available [address] [address] [place], [address], 09/21/2024 04:39:05 09/20/2009/21/2024 COMPR EHENS DANICA METAB OLIC PANEL urea nitrogen (BUN) 15 mg/dL 7-25 normal Not Available [address], [address], 09/21/2024 04:39:05 09/20/2009/21/2024 COMPR EHENS DANICA METAB OLIC PANEL creatinine 1.23 mg/dL 0.70-1 .35 normal Not Available [address], [address], 09/21/2024 04:39:05 09/20/20 24 09/21/2024 COMPR EHENS DANICA METAB OLIC PANEL eGFR 67 mL/mi n/1.7 3m2 > or = 60 normal Not Available [address], [address], 09/21/2024 04:39:05 09/20/2009/21/2024 COMPR EHENS DANICA METAB OLIC PANEL BUN/creatini ne ratio SEE NOTE: (calc ) 6-22 Not Repor delfina: BUN and Creat inine are withi n refer ence range . Not Available [address], [address], 09/21/2024 04:39:05 09/20/20 24 09/21/2024 COMPR EHENS DANICA METAB OLIC PANEL sodium 135 mmol/ L 135-14 6 normal Not Available [address], [address], 09/21/2024 04:39:05 09/20/2009/21/2024 COMPR EHENS DANICA METAB OLIC PANEL potassium 3.7 mmol/ L 3.5-5. 3 normal Not Available [address], [address], 09/21/2024 04:39:05 09/20/2009/21/2024 COMPR EHENS DANICA METAB OLIC PANEL chloride 95 mmol/ L 98-110 low Not Available [address], [address], 09/21/2024 04:39:05 09/20/2009/21/2024 COMPR EHENS DANICA METAB OLIC PANEL carbon dioxide 28 mmol/ L 20-32 normal Not Available [address], [address], 09/21/2024 04:39:05 09/20/2009/21/2024 COMPR EHENS DANICA METAB OLIC PANEL calcium 9.0 mg/dL 8.6-10 .3 normal Not Available [address], [address], 09/21/2024 04:39:05 09/20/2009/21/2024 COMPR EHENS DANICA METAB OLIC PANEL protein, total 8.4 g/dL 6.1-8. 1 high Not Available [address], [address], 09/21/2024 04:39:05 09/20/2009/21/2024 COMPR EHENS DANICA METAB OLIC PANEL albumin 3.9 g/dL 3.6-5. 1 normal Not Available [address], [address], 09/21/2024 04:39:05 09/20/20 24 09/21/2024 COMPR EHENS DANICA METAB OLIC PANEL globulin 4.5 g/dL_ (calc ) 1.9-3. 7 high Not Available [address], [address], 09/21/2024 04:39:05 09/20/2009/21/2024 COMPR EHENS DANICA METAB OLIC PANEL albumin/glob ulin ratio 0.9 (calc ) 1.0-2. 5 low Not Available [address], [address], 09/21/2024 04:39:05 09/20/2009/21/2024 COMPR EHENS DANICA METAB OLIC PANEL bilirubin, total 0.7 mg/dL 0.2-1. 2 normal Not Available [address], [address], 09/21/2024 04:39:05 09/20/20 24 09/21/2024 COMPR EHENS DANICA METAB OLIC PANEL alkaline phosphatase 63 U/L 35-144 normal Not Available [address], [address], 09/21/2024 04:39:05 09/20/20 24 09/21/2024 COMPR EHENS DANICA METAB OLIC PANEL AST 16 U/L 10-35 normal Not Available [address], [address], 09/21/2024 04:39:05 09/20/2009/21/2024 COMPR EHENS DANICA METAB OLIC PANEL ALT 11 U/L 9-46 normal Not Available [address], [address], 09/21/2024 04:39:05 09/20/20 24 09/21/2024 CREAT INE KINAS E, TOTAL creatine kinase, total 65 U/L 44-196 normal Not Available [facility] [address] [address] [place], [address], 09/21/2024 04:39:08 09/20/20 24 09/21/2024 EXTRA LAVEN TASHIA-T OP TUBE extra lavender-top tube Not Available [facility] [address] [address] [place], [address], 09/21/2024 04:39:09 09/20/20 24 09/21/2024 EXTRA LAVEN [...] to speci men stabi lity. Not Available [facility] [address] [address] [place], [address], 09/21/2024 04:39:09 11/01/20 23 bone densi ty/de xa [facility] [address] [facility] [place] [address] EXAMIN ATION: Bone Densit y Axial ACCESS ION: [id number] EXAM DATE/T OPAL: 023 8:26 AM [...] 9:04 PM [facility] [address] [facility], [place], [address], 11/07/2023 15:26:28 11/01/20 23 10/31/2023 bone densi ty No observ ation record ed. [facility] [address], [place], [address], 11/07/2023 15:26:29 11/10/20 23 nmpns 1d [facility] [place] [address] Myocar dial Perfus ion Imagin g Pat.Na me: ANA CERVANTES, ROBIN Og Pat.ID : [id number] .Dionicio e: 2022 Refer. : Josesito [...] 59 % Max BP: 122/82 Max RPP: 90401 O2 sat: 99 % Sympto ms and Compli cation s: Termin ated: Protoc ol comple delfina Sympto ms: Lighth eadedn ess Compli cation s: None Stress ECG Interp : Sinus rhythm 2022 09:42 AM Jose aviles M.D. [email or web address] [facility] [address] [facility], [place], [address], 11/10/2023 11:23:03 10/20/20 24 10/20/2024 MRI, knee, w/o contr ast No observ ation record ed. [email or web address] [facility] [address], [place], [address], 10/20/2024 11:16:46 Result Notes None recorded. Problems Name Problem SNOMED Code Status Onset Date Resolution Date Notes Provider Name and Address Organization Details Recorded Time Psoriati c arthriti s 437436670 Active 2021 GEORGE Rosario Attn: Accounting ,[address] [place], [address] , [facility] 2 09:37:38 Hyperlip idemia 41239296 Active 2022 GEORGE Rosario Attn: Accounting ,[address] [place], [address] , [facility] 3 10:28:59 Penetrat ion of eyeball with nonmagne tic foreign body [id number] Completed 201208/12/2013 Location : None;Sev erity: Moderate ;Progres s: Stable;A dded By: Willa Harvey;Add to Current Problems : NO Not Available [facility] 7 10:39:32 Acute upper respirat ory infectio n of multiple sites Completed 201310/06/2014 Location : None;Sev erity: Moderate ;Progres s: Stable;A dded By: Willa Harvey;Add to Current Problems : YES Not Available [facility] 10:39:32 Urine finding [id number] Completed 201309/26/2021 Location : None;Sev erity: Moderate ;Progres s: Stable;A dded By: Willa Harvey;Add to Current Problems : NO GEORGE Rosario Attn: Accounting ,[address] [place], [address] , [facility] 11:13:45 Edema [id number] Completed 201110/30/2012 Location : None;Sev erity: Moderate ;Progres s: Stable;A dded By: Sarabjit Collins;Add to Current Problems : NO Not Available [facility] 7 10:39:32 Acute conjunct ivitis [id number] Completed 201208/12/2013 Location : None;Sev erity: Moderate ;Progres s: Stable;A dded By: Sarabjit Collins;Add to Current Problems : NO Not Available [facility] 7 10:39:32 Cellulit is [id number] Completed 201209/26/2021 Location : None;Sev erity: Moderate ;Progres s: Stable;A dded By: Sarabjit Collins;Add to Current Problems : NO GEORGE Rosario Attn: Accounting ,[address] [place], [address] , [facility] 11:13:36 Nausea and vomiting [id number] Completed 201208/27/2013 Location : None;Sev erity: Moderate ;Progres s: Stable;A dded By: Sarabjit Collins;Add to Current Problems : NO Not Available [facility] 7 10:39:32 Allergic urticari a [id number] Completed 201211/12/2013 Location : None;Sev erity: Moderate ;Progres s: Stable;A dded By: Karina, Sarabjit s J.;Add to Current Problems : NO Not Available [facility] 7 10:39:32 Pruritic disorder [id number] Completed 201302/10/2014 Location : None;Sev erity: Moderate ;Progres s: Stable;A dded By: Karina, Sarabjit s J.;Add to Current Problems : NO Not Available [facility] 7 10:39:32 Dermatop hytosis of the perianal area Completed 201305/27/2014 Location : None;Sev erity: Moderate ;Progres s: Stable;A dded By: Karina, Sarabjit s J.;Add to Current Problems : NO Not Available [facility] 7 10:39:32 Screenin g procedur e Completed 201305/27/2014 Location : None;Sev erity: Moderate ;Progres s: Stable;A dded By: Karina, Sarabjit s J.;Add to Current Problems : NO Not Available [facility] 7 10:39:32 Screenin g for malignan t neoplasm of colon Active 2013 Location : None;Sev erity: Moderate ;Progres s: Stable;A dded By: Karina, Sarabjit s J.;Add to Current Problems : NO Not Available [facility] 7 10:39:32 Angioede ma [id number] Completed 201309/09/2014 Location : None;Sev erity: Moderate ;Progres s: Stable;A dded By: Karina, Sarabjit s J.;Add to Current Problems : YES Not Available [facility] 7 10:39:33 Internal hordeolu m [id number] Completed 201309/26/2021 Location : None;Sev erity: Moderate ;Progres s: Stable;A dded By: Karina, Sarabjit s J.;Add to Current Problems : YES GEORGE Rosario Attn: [place], [address] , [place] [facility] 11:13:41 Multiple joint pain 40295021 Active 2014 Location : None;Sev erity: Moderate ;Progres s: Stable;A dded By: Sarabjit Collins;Add to Current Problems : YES Not Available [facility] 7 10:39:33 Viral screenin g Completed 201405/20/2015 Location : None;Sev erity: Moderate ;Progres s: Stable;A dded By: Sarabjit Collins;Add to Current Problems : YES Not Available [facility] 7 10:39:33 Eruption [id number] Completed 201211/12/2013 Location : None;Sev erity: Moderate ;Progres s: Stable;A dded By: Antonella Foreman;Add to Current Problems : NO Not Available [facility] 7 10:39:33 Edema [id number] Completed 201302/10/2014 Location : None;Sev erity: Moderate ;Progres s: Stable;A dded By: Antonella Foreman;Add to Current Problems : NO Not Available [facility] 7 10:39:33 Hip pain [id number] Completed 201509/26/2021 Location : None;Sev erity: Moderate ;Progres s: Stable;A dded By: Antonella Foreman;Add to Current Problems : YES GEORGE Rosario Attn: Accounting ,[address] [place], [address] , [facility] 11:13:38 Eruption [id number] Completed 201305/27/2014 Location : None;Sev erity: Moderate ;Progres s: Stable;A dded By: Lore Conway;Add to Current Problems : NO Not Available [facility] 7 10:39:33 Headache [id number] Completed 201309/02/2014 Location : None;Sev erity: Moderate ;Progres s: Stable;A dded By: Denia Cobos i;Dayne dd to Current Problems : YES Not Available [facility] 7 10:39:33 Benign essentia l hyperten maycol 9554451 Active 2012 Location : None;Sev erity: Moderate ;Progres s: Stable;A dded By: Denia Cobos i;Dayne dd to Current Problems : YES Not Available [facility] 10:39:33 Swelling of limb [id number] Completed 201405/20/2015 Location : None;Sev erity: Moderate ;Progres s: Stable;A dded By: Denia Cobos i;Dayne dd to Current Problems : NO Not Available [facility] 7 10:39:33 Idiopath ic urticari a [id number] Completed 201110/29/2012 Location : None;Sev erity: Moderate ;Progres s: Stable;A dded By: Marychuy Castrejon;Add to Current Problems : NO Not Available [facility] 7 10:39:33 Problem Notes None recorded. Procedures Surgical History Date Name Laterality Status Provider Name and Address Organization Details Recorded Time Arthroscopic Surgery completed Antonella Waddell [facility] 12/13/2016 13:56:13 Joint Replacement completed Antonella Waddell [facility] 12/13/2016 13:56:17 Imaging Results Imaging Date Name Status [facility]Modified by [facility] Details LastModified Time 11/01/2023 bone density/dexa completed [address], [address], 11/07/2023 15:26:28 10/31/2023 bone density completed [facility] [address], [address], 11/07/2023 15:26:29 11/10/2023 [email or web address] completed [email or web address] [address], [address], 11/10/2023 11:23:03 10/20/2024 MRI, knee, w/o contrast completed [email or web address] [address], [place], [address], 10/20/2024 11:16:46 Procedure Notes None recorded. Medical [...] as needed for cough 04/05 completed RxNorm: 410076;Dayne buchanan Substitu tion: True Not Available Not Available Not Available prednison e 10 mg tablet TAKE 1 TABLET BY MOUTH TWICE DAILY FOR 10 DAYS 01/04 completed Not Available Not Available Not Available enalapril maleate 10 mg tablet Take 1 tablet(s ) by mouth daily 07/11 completed RxNorm: 839213;A llow Substitu tion: True Not Available Not [...] in each nostril daily 04/05 completed RxNorm: 350894;A llow Substitu tion: True Not Available Not [...] q12h for 10 days 03/16 completed RxNorm: 081476;A llow Substitu tion: True Not Available Not [...] 1 tablet PO QD 07/11 completed RxNorm: 002913;A llow Substitu tion: True Not Available Not Available Not Available metoprolo l succinate ER 25 mg tablet,ex tended release 24 hr Take 1 tablet po daily 02/21 completed RxNorm: 033559;A llow Substitu tion: True Not Available Not [...] to affected area Bid 07/11 completed RxNorm: 023532;A llow Substitu tion: True Not Available Not [...] food x 3 days 12/04 completed RxNorm: 492831;A llow Substitu tion: True Not Available Not [...] Updated DateTime 3 177.8 cm 34.3 kg/m2 488234. 58 g 97.7 [degF] 77 /min 98 % 98 % 123 mm[Hg] 83 mm[Hg] Debra Parker [place] [facility] 3 14:05:11 Date Recorded Body height Body mass index (BMI) Body weight Oxygen saturation Oxygen saturation in Arterial blood by Pulse oximetry Heart rate Body temperature Provider Name and Address Organization Details Last Updated DateTime 4 177.8 cm 35.6 kg/m2 554129. 91 g 97 % 97 % 73 /min 97.5 [degF] Michi Sifuentes [place] [facility] 4 10:40:41 Date Recorded Systolic blood pressure Diastolic blood pressure Provider Name and Address Organization Details Last Updated DateTime 04/06/2024 136 mm[Hg] 86 mm[Hg] GEORGE Rosario Attn: Accounting,[address] [place], [address], [facility] 04/06/2024 11:19:10 Date Recorded Body height Body mass index (BMI) Body weight Body temperature Heart rate Oxygen saturation Oxygen saturation in Arterial blood by Pulse oximetry Systolic blood pressure Diastolic blood pressure Provider Name and Address Organization Details Last Updated DateTime 4 177.8 cm 33 kg/m2 515274. 65 g 97.4 [degF] 62 /min 97 % 97 % 110 mm[Hg] 74 mm[Hg] Meme Rodriguez MA [facility] 4 09:26:37 Date Recorded Body height Body mass index (BMI) Body weight Oxygen saturation Oxygen saturation in Arterial blood by Pulse oximetry Heart rate Body temperature Systolic blood pressure Diastolic blood pressure Provider Name and Address Organization Details Last Updated DateTime 5 177.8 cm 35.2 kg/m2 431511. 13 g 96 % 96 % 73 /min 97.8 [degF] 122 mm[Hg] 78 mm[Hg] Lupe Alfaro MA [facility] 5 09:34:01 Social History Question Answer Notes LastModified by Organizat ion Details LastModified Time Tobacco Smoking Status Never Smoker GEORGE Rosario Attn: [place], [address], [facility] 11/26/2018 11:26:14 Do You Have An Advance [...] Anxious, Or Unable To Sleep At Night)? [id number] Information not available 01/09/2023 Do You Use [...] dose 02/22/2021 completed GEORGE Rosario Attn: Accounting,[address] [place], [address], [place] [facility] 01/04/2025 10:07:39 COVID-19, mRNA, LNP-S, PF, 30 mcg/0.3 mL dose 03/15/2021 completed GEORGE Rosario Attn: Accounting,[address] [place], [address], [place] [facility] 01/04/2025 10:07:39 COVID-19, mRNA, LNP-S, PF, 30 mcg/0.3 mL dose 11/15/2021 completed GEORGE Rosario Attn: Accounting,[address] [facility], [place], [address], [place] [facility] 01/04/2025 10:07:39 Hep B, adult 01/22/2012 completed GEORGE Shaw Attn: Accounting,[address] [facility], [place], [address], [place] [facility] 01/04/2025 10:07:39 Hep B, adult 03/19/2012 completed GEORGE Shaw Attn: Accounting,[address] [facility], [place], [address], [place] [facility] 01/04/2025 10:07:39 Hep B, adult 10/19/2012 completed GEORGE Shaw Attn: Accounting,[address] [facility], [place], [address], [place] [facility] 01/04/2025 10:07:39 Hep A, adult 01/22/2012 completed GEORGE Shaw Attn: Accounting,[address] [facility], [place], [address], [place] [facility] 01/04/2025 10:07:39 Hep A, adult 10/19/2012 completed GEORGE Shaw Attn: Accounting,[address] [facility], [place], [address], [place] [facility] 01/04/2025 10:07:39 Tdap 10/01/2022 completed Beatriz Proctor [place], [place] [facility] 10/01/2022 11:11:21 Hep A, adult 11/20/2022 completed Jeanette kapadia LPN [place], [place] [facility] 11/20/2022 10:28:05 Hep A, adult 07/09/2023 completed Lupe narayan [place], [place] [facility] 07/09/2023 11:59:16 Tdap 03/18/2011 completed Not Available [facility] 11/27/2016 05:52:57 Past Encounters Encounter ID Performer Location Encounter Start Date Encounter Closed Date Diagnosis/Indication Diagnosis SNOMED-CT Code Diagnosis ICD10 Code Diagnosis Note [id number] GEORGE Rosario [facility] [address] [place] [address] 12/13/2016 13:43:39 12/16/2016 14:08:49 Urticaria 810413326 L50.9 Angioedema 52377711 T78. 3XXA Arthritis 1763786 M19.90 [id number] Jadiel Collins MD [facility] [address] [place] [address] 04/22/2017 14:33:29 04/22/2017 15:54:54 Chest pain 63656073 R07.9 Syncope 431256118 R55 [id number] Jadiel Collins MD [facility] [address] [place] [address] 05/21/2017 10:36:55 05/21/2017 13:08:13 Benign essential hypertension 1649500 I10 Stress 63480055 Z73.3 Hand pain 64243600 M79.6 41 [id number] Jadiel Collins MD [facility] [address] [place] [address] 11/04/2017 16:37:50 11/04/2017 17:27:09 Benign essential hypertension 5705054 I10 Idiopathic urticaria 422 63022 L50.1 [id number] GEORGE Rosario [facility] [address] [place] [address] 03/10/2018 10:08:14 03/11/2018 15:32:39 Lateral epicondylitis 312180569 M77.11 Ice as much as possible. Try to rest right arm as much as possible. Call if no better for PT [id number] Jadiel Collins MD [facility] [address] [place] [address] 05/11/2018 16:23:40 05/12/2018 11:15:09 Benign essential hypertension 7935629 I10 Tenosynovitis of hand 42 8652825 M65.849 Gastritis 0036942 K29.70 [id number] GEORGE Rosario [facility] [address] [place] [address] 11/26/2018 10:09:15 11/27/2018 09:02:19 Acute bronchitis 88358331 J20.9 if no better in the next 3 days will get cxr Otitis media 76021206 H6 6.92 Benign ess ential hypertension 5632591 I10 Screening for malignant neoplasm of prostate 411887565 Z12.5 [id number] GEORGE Rosario [facility] [address] [place] [address] 03/26/2019 15:31:33 03/29/2019 09:07:02 Ganglion/synovial cyst - hand 136935805 M67.442 Pain in thumb 183257459 M79.487 [id number] Silvia Whitlock [facility] [address] [place] [address] 12/27/2019 16:45:02 12/28/2019 10:22:48 Benign essential hypertension 9685440 I10 Gout 62637095 M10.9 Family his tory of diabetes mellitus 666502537 Z83.3 Pain in right foot 69659 66210 11694 M79.671 Pain in left foot 760064 4783 67792 M79.672 Pain of le ft ankle joint 4572615254 5711930 M25.572 Primary er ectile dysfunction 809205335 N52.9 [id number] LISANDRA Olson [address] [place] [address] 06/05/2020 12:37:51 06/06/2020 11:17:03 Suspected COVID-19 936804964 Z03.818 D/w pt the current pandemic of COVID-19 and call for social isolation in order to blunt the curve and minimize risk and spread. Encouraged patient and family to take restrictio ns seriously. They have verbalized understand ing of such. Viral syndrome 024285532 B34.9 [id number] LISANDRA PAREDES [address] [place] [address] 10/27/2020 13:15:37 10/30/2020 09:02:05 Suspected COVID-19 422828685 Z03.89 [id number] [facility] [address] [place] [address] 03/16/2021 14:09:01 03/19/2021 10:53:19 Dyspnea 458903596 R06.00 Chest pain 45085726 R07. 9 all troponins negative, CXR negative, labs good except WBCs. We will try to get him in [facility] due to insurance impending lapse due to loss of job, for repeat stress testing if indicated. Leukocytosis 189629573 D 72.829 Unintentio nal weight loss 696583690 R63.4 since COVID, not eating since lost of taste. Panic attack 913429859 F 41.0 declines medication for prn [id number] JOSELO WallerP-C [facility] [address] [place] [address] 06/29/2021 09:14:25 06/29/2021 13:38:29 Bilateral localized swelling of hands 3988553653 5493756 R22.33 will get results and make further recommenda tions Benign ess ential hypertension 9688585 I10 [id number] GEORGE Rosario [facility] [address] [place] [address] 09/26/2021 10:32:48 09/27/2021 10:23:51 C-reactive protein above reference range 4378225486 36895 R79.82 Erythrocyt e sedimentation rate above reference range 018120375 R70.0 Benign ess ential hypertension 3777177 I10 Degenerati on of lumbar intervertebral disc 29589451 M51.36 10/02 having MRI and discogram. 12/24 will be discussing all of the results and decide which surgery is planned. All workmen's comp. Has had nerve blocks done and other injections . Electrocar diogram abnormal 702346623 R94.31 was supposed to have a Lexiscan 4 years ago and never done, only holter testing done. Pre-surger y evaluation 852612389 Z01.532 [id number] GEORGE Rosario [facility] [address] [place] [address] 10/01/2022 09:34:08 10/02/2022 11:21:14 Adult health examination 396521547 Z00.00 Vitamin D deficiency 347 96164 E55.9 Benign ess ential hypertension 9905342 I10 Psoriatic arthritis [address] Kenyetta Reaves, will copy labs to her. Administra tion of diphtheria, pertussis, and tetanus vaccine 296814969 Z23 Screening for malignant neoplasm of prostate 538023873 Z12.5 Dyslipidemia 726641200 E 78.5 fasting today for lab Obesity 493060603 E66.9 issues with activity due to his back injury. Screening for malignant neoplasm of colon 461926606 Z12.11 2013 timbo, 2 polyps, adenomas, overdue Fatigue 30602840 R53.83 Secondary erectile dysfunction 658190636 N52.39 if all lab ok, I told him to hold his chlorthali done and if helps his ED, he will keep an eye on his BP and if >140/90 will adjust/add BP meds [id number] Jeanette Multani LPN [facility] [address] [place] [address] 11/20/2022 10:04:59 11/20/2022 11:34:13 Active or passive immunization 570831432 Z23 [id number] GEORGE Rosario [facility] [address] [place] [address] 01/09/2023 09:28:24 01/10/2023 13:06:04 Benign essential hypertension 9748612 I10 great control today, no changes Obesity 880969350 E66.9 issues with activity due to his back injury. Still seeing neurosurge ry for this, has not scheduled surgery yet. Hyperlipidemia 94181264 E78.5 do not stop crestor, reviewed his recent lab. He understand s CV benefit, will continue to take Psoriasis 0167084 L40.9 Med Rx by derm works so well in his scalp and pubic area in just 2-3 days, given per Music, will refill here. Requires a hepatitis A vaccination 520655234 Z28.39 not due til April Psoriatic arthritis 1563 68669 L40.50 will fill out form for handicappe d parking placard for as needed use. WAs taking naproxen and diclofenac together, will stop the naproxen. [id number] GEORGE Rosario [facility] [address] [facility] [address] [facility] [address] 07/09/2023 10:12:21 07/10/2023 10:56:13 Benign essential hypertension 4333795 I10 Will stop metoprolol and chlorthali done due to poor control and bradycardi a. Will f/u in 3 months for recheck BP and recheck BMP. Hyperlipidemia 77432516 E78.5 do not stop crestor, reviewed his recent lab. He understand s CV benefit, will continue to take Morbid obesity 774543355 E66.01 Patient with work on healthier whole food diet, routine exercise in attempt to lose weight. Requires a hepatitis A vaccination 975478980 Z28.39 due for second shot now. Psoriatic arthritis 1563 86099 L40.50 now on full disability , taking methotrexa te regularly weekly, just saw rheum at [facility], really doesn't like his bedside manner, will try to get establishe d at [facility]. Erectile dysfunction 860 856469 F52.21 hopefully stopping chlorthali done and metoprolol will help. Seborrheic dermatitis 50 164122 L21.9 Abnormal weight gain 161 906677 R63.5 due to inactivity from his back issues and joint issues, but will make sure no thyroid issues with other autoimmuni ty. [id number] GEORGE Rosario [facility] [address] [facility] [address] [place] [address] 08/25/2023 13:51:04 08/28/2023 10:11:38 Benign essential hypertension 5713363 I10 We stopped metoprolol and chlorthali done due to poor control and bradycardi a and added LETTY 6 weeks ago. MUCH better control today, check BMP today, no changes Hyperlipidemia 94870057 E78.5 increased his statin dose 6 weeks ago, will rech fasting lipid today Obesity 083742649 E66.9 issues with activity due to his back injury. Still seeing neurosurge ry for this, has not scheduled surgery yet. But aiming for after mid August [id number] GEORGE Rosario [facility] [address] [facility] [address] [place] [address] 10/20/2023 14:54:15 10/21/2023 09:39:23 COVID-19 529769659 U07.1 Stay very hydrated. Monitor for red flag symptoms like SOB, pleuritic CP, swelling or extreme weakness. Continue Mucinex DM and tylenol as needed for Headaches or fever. Hold statin for the duration of Paxlovid RX. Contagion reviewed, 5 days isolation and then 5 additional day of public masking as long as no fevers and feeling 80% improved. Immodium for his diarrhea [id number] GEORGE Rosario [facility] [address] [facility] [address] [place] [address] 04/06/2024 09:55:47 04/12/2024 17:06:29 Benign essential hypertension 9659533 I10 fasting today, so will get annual labs. Good at home <130/80s Screening for malignant neoplasm of colon 641773016 Z12.11 2013 timbo, 2 polyps, adenomas, overdue for repeat. Will refer to GI Hemospermia 08168501 R36 .1 with urinary urgency and ED, will refer to urology. Screening for malignant neoplasm of prostate 660286903 Z12.5 Hyperlipidemia 14447551 E78.5 continue statin therapy. Will rech today, fasting Psoriatic arthritis 1563 84807 L40.50 Last saw provider at [facility], no meds at the moment, will put in referral for future to get re-establi shed. Continues with chronic joint pain and stiffness. [id number] GEORGE Rosario [facility] [address] [facility] [address] [place] [address] 09/20/2024 09:07:31 09/20/2024 14:07:17 Benign essential hypertension 3851069 I10 great control today, no changes. Down 18 pounds in 5 months. Hyperlipidemia 89983725 E78.5 We increased his crestor to 40 last visit, was not at goal, Will rech today, fasting. Psoriatic arthritis 1563 96913 L40.50 saw [facility] provider in May, apparently they wanted MRI [...] their contact info for him to call. [id number] GEORGE Rosario [facility] [address] [place] [address] 01/04/2025 09:21:15 01/06/2025 12:05:51 Osteoarthritis of knee 115652429 M17.[address] Mauri Howard, right meniscecto [...] ID Guarantor Name 08/25/2023 1 [employer] [id number] Gladys Blanco [id number] Robin Blanco 10/20/2023 1 [place] [id number] Gladys Blanco [id number] Robin Blanco 04/06/2024 1 [facility] (MEDICARE REPLACEMENT/A DVANTAGE - PPO) [id number] Robin Blanco [id number] Robin Blanco 09/20/2024 1 [facility] (MEDICARE REPLACEMENT/A DVANTAGE - PPO) [id number] Robin Blanco [id number] Robin Blanco 01/04/2025 1 [facility] (MEDICARE REPLACEMENT/A DVANTAGE - PPO) [id number] Robin Blanco [id number] Robin Blanco Notes Date Note Type Note [...] 65 pulse GEORGE Rosario Attn: Accounting,[address] [place], [address], [facility] 08/27/2023 22:28:16 3 text/html [...] 10/15/23 postive GEORGE Rosario Attn: Accounting[address] [place], [address], [facility] 10/20/2023 15:31:35 4 text/html [...] for example) GEORGE Rosario Attn: Accounting,[address] [place], [address], [place] [facility] 04/12/2024 12:01:21 4 text/html Hypertension F/UReported bypatient.Associated Symptoms:no dizziness; no lightheadedness; no chest pain; no shortness of breath; no palpitations; no calf pain with exertion;edema Lifestyle:limiting/avoiding salt Medications:taking medications as directed; no side effects from medicationNotes:increased his stating to crestor 40mg last visit, lipids were not at goal, due for recheck todayLast went to [facility] rheumatology this past May, apparently MRI was [...] and inflammation GEORGE Rosario Attn: Accounting,[address] [facility], [place], [address], [facility] 09/20/2024 10:10:44 5 text/html Dr. Mauri Howard and [facility].I spoke with Dr. Mauri Howard's office and they did not request clearance, but they think Anesthesia may have, I have no records. They will fax a preop form that they useSees Dr. Rincon cardiology, and he was cleared in 04/14/24 for colonoscopy, and in November 2023 for orthopedic surgery based on 11/15 EKGHaving EKG and lab done at [place] today right after this. Last time he had surgery was a year ago with Gornet in his back. No issues with anesthesia then. He will request EKG and lab sent to me. GEORGE Rosario Attn: Accounting,[address] [facility], [place], [address], [place] - [place] 01/05/2025 15:33:38
--- OUTSIDE RECORDS SUMMARY | 2025-02-16 13:11 | XMS_ITS | Encounter Summary ---
Author Organization [facility] Address [address] [place] [address] Care Team Providers Care Marketing Development Representative Name Role Phone Calista Fowler MD Unavailable [phone] ParentHiral Unavailable [phone] ParentHiral Primary Care Provider [phone] Encounter Details Date Type Department Care Team (Late st Contact Info) Description 05/08/2017 Abstract [facility] AT [address] [address] Isabell Bailey MA Social History Tobacco Use [...] on filedocumented in this encounter Care Teams Marketing Development Representative Relationship Specialty Start Date End Date Hiral Rivas PA [address] [place] [address] PCP - General FAMILY PRACTICE 09/24/21 Calista Fowler MD Three [facility]. [address] [place] [address] [place] [employer] CARDIOVASCULAR DISEASE 03/24/17 Hiral Rivas PA [address] [place] [address] FAMILY PRACTICE 09/28/21 documented as of this encounter
--- OUTSIDE RECORDS SUMMARY | 2025-02-16 13:33 | XMS_ITS | Encounter Summary ---
Author Organization [facility] Address [address] [place] [address] Care Team Providers Care Cooler Service Supervisor Name Role Phone Calista Fowler MD Unavailable [phone] ParentHiral Unavailable [phone] ParentHiral Primary Care Provider [phone] Encounter Details Date Type Department Care Team (Late st Contact Info) Description 05/08/2017 Abstract [facility] AT [address] [address] Isabell Bailey MA Social History Tobacco Use [...] Results * ESR (OUTSIDE LAB) (07/19/2021) Pathologist [facility] SED RATE 94 07/19/2021 us Doc [facility] Abstract LAB-OUTSIDE/ABSTRACTED Final Result * CBC (OUTSIDE LAB) (07/18/2021) Pathologist [facility] WBC 10.8 HGB 14.6 HCT 44.2 PLT 195 07/18/2021 us Doc [facility] Abstract LAB-OUTSIDE/ABSTRACTED Final Result * C-REACTIVE PROTEIN (07/18/2021) Pathologist [facility] CRP 28.5 07/18/2021 us Doc [facility] Abstract LABORATORY Final Result * URIC ACID BLOOD (07/02/2021) Pathologist [facility] URIC ACID 6.4 07/02/2021 us Doc [facility] Abstract LABORATORY Final Result * COMPREHENSIVE METABOLIC PANEL (06/29/2021) Pathologist [facility] SODIUM S/P/B 138 POTASSIUM S/P/B 4.4 CO2 [...] on filedocumented in this encounter Care Teams Cooler Service Supervisor Relationship Specialty Start Date End Date Hiral Rivas PA [address] [place] [address] PCP - General FAMILY PRACTICE 09/24/21 Calista Fowler MD Three [facility]. [address] [place] [address] [employer] Wel[employer] CARDIOVASCULAR DISEASE 03/24/17 Hiral Riavs PA [address] [place] [address] FAMILY PRACTICE 09/28/21 documented as of this encounter
--- OUTSIDE RECORDS SUMMARY | 2025-02-16 13:33 | XMS_ITS | Referral Summary ---
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
--- OUTSIDE RECORDS SUMMARY | 2025-02-16 13:33 | XMS_ITS | CONTINUITY OF CARE DOCUMENT ---
Author Name jannette bhatia Address Unknown Organization [facility] Address [address] [place] [address] Phone [phone] Care Team Providers Care Core Drilling Supervisor Name Role Phone jannette bhatia Unavailable Unavailable INSURANCE PROVIDERS Payer name Policy type / Coverage type Terrell red green party ID [facility] [id number]
--- OUTSIDE RECORDS SUMMARY | 2025-02-16 13:33 | XMS_ITS | Clinical Summary ---
Author Organization [facility] Address [address] [place] [address] Care Team Providers Care Coagulating Bath Operator Name Role Phone Parent, Hiral Coffey GEORGE Primary Care Provider [phone] Source Comments [facility],non-owned Affiliates and Associated Physician Practices is amultiple site organization consisting of ambulatory clinics and hospital sitesin [place], [place], [place] and [place]. This disclosure is being madepursuant to the Care Everywhere program and may not contain all information available regarding this patient. Last updated 18.[facility] Allergies No known active allergies Medications * [...] Comments Blood Pressure 128/80 01/14/2023 9:09 AM LAYER OUT PLATE GLASS Pulse 85 01/14/2023 9:09 AM LAYER OUT PLATE GLASS Temperature 36.3 C (97.3 F) 01/14/2023 9:09 AM LAYER OUT PLATE GLASS Respiratory Rate - - Oxygen Saturation 99% 01/14/2023 9:09 AM LAYER OUT PLATE GLASS Inhaled Oxygen Concentration - - Weight 109 kg (240 lb 6.4 oz) 01/14/2023 9:09 AM LAYER OUT PLATE GLASS Height 172.7 cm (5' 8 ) 06/03/2022 [...] COMPREHENSIVE METABOLIC PANEL (02/27/2022 8:35 AM CDT) [facility] Glucose 92 65 - 99 mg/dL [facility] Comment: Fasting reference interval BUN 10 7 - 25 mg/dL [facility] Creatinine 1.21 0.70 - 1.33 mg/dL [facility] Comment: For patients >49 years of age, the reference limit for Creatinine is approximately 13% higher for people identified as -Ecuadorean. eGFR by MDRD 66 > OR = [...] 46 U/L [facility] Comment: Test Performed at: [email or web address] [address] [place] [address] MILLIE WOODY DO,MPH Blood BLOOD SPECIMEN / Unknown 02/27/2022 8:35 AM CDT 02/27/2022 8:36 AM CDT Kenyetta Reaves MD LAB - CHEMISTRY ORDERABLES [facility] [address] [place] [address] from Last 3 Months or Most Recently Relevant to Health Maintenance Care Teams Coagulating Bath Operator Relationship Specialty Start Date End Date Parent, GEORGE Alcaraz [address] [place] [address] [facility] - General 08/06/21
--- OUTSIDE RECORDS SUMMARY | 2025-02-16 13:33 | XMS_ITS | Clinical Summary ---
Author Organization [facility] Address 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
--- OUTSIDE RECORDS SUMMARY | 2025-02-16 13:33 | XMS_ITS | Clinical Summary ---
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/2022 Snores 05/07/2017 Orthostatic hypotension 05/05/2017 Swelling [...] Comments Blood Pressure 118/62 10/28/2023 1:51 PM ADOPTION SOCIAL WORKER Pulse 62 10/28/2023 1:51 PM ADOPTION SOCIAL WORKER Temperature - - Respiratory Rate - - Oxygen Saturation 98% 10/28/2023 1:51 PM ADOPTION SOCIAL WORKER Inhaled Oxygen Concentration - - Weight 107.5 kg (237 lb) 10/28/2023 1:51 PM ADOPTION SOCIAL WORKER Height 177.8 cm (5' 10 ) 10/28/2023 1:51 PM ADOPTION SOCIAL WORKER Body Mass Index 34.01 10/28/2023 1:51 PM ADOPTION SOCIAL WORKER Plan of Treatment Health Maintenance Due Date [...] complete this topic Insurance [employer] MEDICARE [facility] Advance Directives Documents on File Type Date Recorded 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. [address] [place] [address] [place] [employer] Swim Coach CARDIOVASCULAR DISEASE 03/24/17 ParentHiral PA [address] [place] [address] FAMILY [facility] 09/28/21
== END 2025-02-16 12:49 | disposition home or self-care (01) ==
PROVIDERS: Emergency Provider Family Medicine
DX: M47.22 Other spondylosis with radiculopathy, cervical region (principal); M06.9 Rheumatoid arthritis, unspecified; I10 Essential (primary) hypertension; M19.90 Unspecified osteoarthritis, unspecified site; Z79.899 Other long term (current) drug therapy
CPT/HCPCS: 72125; 99284

== ENCOUNTER 2025-08-18 08:40 | Outpatient (CLI) | payer MEDICARE, SELFPAY ==
--- NOTE | ~2025-08-18 | XR_ITS ---
EXAMINATION: XR hand RT 2V, 08/18/2025 8:52 CDT HISTORY: Pain in unspecified joint COMPARISON: No comparisons available. Findings: No acute fracture or malalignment. Moderate degenerative changes noted most marked of the first metacarpal carpal joint and the distal and proximal interphalangeal joints, there are no erosions identified Soft tissues unremarkable. Impression: No acute fracture or malalignment. Reviewed, dictated and finalized at location A. Impression: No acute fracture or malalignment.
--- NOTE | ~2025-08-18 | XR_ITS ---
EXAMINATION: XR hand LT 2V, 08/18/2025 8:52 CDT HISTORY: Pain in unspecified joint COMPARISON: No comparisons available. Findings: No acute fracture or malalignment. Moderate degenerative changes most marked involving the first metacarpal carpal joint, the first metacarpal phalangeal joint and the distal interphalangeal joints, there are no erosions identified. Within the soft tissues adjacent to the distal aspect of the proximal phalanx first digit there is metallic radiopaque foreign body measuring 2 x 4 mm. Impression: No acute fracture or malalignment. Reviewed, dictated and finalized at location A. Impression: No acute fracture or malalignment.
--- NOTE | ~2025-08-18 | XR_ITS ---
EXAMINATION: XR foot RT 2V, 08/18/2025 8:52 CDT HISTORY: Pain in unspecified joint COMPARISON: No comparisons available. Findings: No acute fracture or malalignment. Moderate degenerative changes of the first metatarsal phalangeal joint, no erosions identified. Large calcaneal spur. Moderate Achilles enthesopathy Soft tissues unremarkable. Impression: No acute fracture or malalignment. Reviewed, dictated and finalized at location A. Impression: No acute fracture or malalignment.
--- NOTE | ~2025-08-18 | XR_ITS ---
EXAMINATION: XR sacroiliac joints min 3V, 08/18/2025 8:52 CDT HISTORY: Pain in unspecified joint COMPARISON: No comparisons available. Findings: Bilateral hip arthroplasties. Sclerosis of the sacroiliac joints, no erosions or bridging osteophyte formation. Soft tissues unremarkable. Impression: No acute fracture or malalignment. Reviewed, dictated and finalized at location A. Impression: No acute fracture or malalignment.
--- NOTE | ~2025-08-18 | XR_ITS ---
EXAMINATION: XR_KNEE1-2VRT_CR, 08/18/2025 8:52 CDT HISTORY: Pain in unspecified joint COMPARISON: No comparisons available. Findings: No acute fracture or malalignment. Moderate tricompartmental degenerative changes, small effusion Soft tissues unremarkable. Impression: No acute fracture or malalignment. Reviewed, dictated and finalized at location A. Impression: No acute fracture or malalignment.
--- NOTE | ~2025-08-18 | XR_ITS ---
EXAMINATION: XR_KNEE1-2VLT_CR, 08/18/2025 8:52 CDT HISTORY: Pain in unspecified joint COMPARISON: No comparisons available. Findings: No acute fracture or malalignment. Moderate tricompartmental degenerative changes, trace effusion Soft tissues unremarkable. Impression: No acute fracture or malalignment. Reviewed, dictated and finalized at location A. Impression: No acute fracture or malalignment.
--- NOTE | ~2025-08-18 | XR_ITS ---
EXAMINATION: XR foot LT 2V, 08/18/2025 8:52 CDT HISTORY: Pain in unspecified joint COMPARISON: No comparisons available. Findings: No acute fracture or malalignment. Moderate degenerative changes involving the first metatarsal-phalangeal joint and the tarsometatarsal joints, no erosions identified. Moderate calcaneal spur. Moderate Achilles enthesopathy Soft tissues unremarkable. Impression: No acute fracture or malalignment. Reviewed, dictated and finalized at location A. Impression: No acute fracture or malalignment.
== END 2025-08-18 08:41 | disposition home or self-care (01) ==
PROVIDERS: PCP Internal Medicine Rheumatology; Visit Provider Internal Medicine Rheumatology
DX: M25.50 Pain in unspecified joint (principal)
CPT/HCPCS: 72202; 73120; 73560; 73620